=== PATIENT | male | born 1950 | race Caucasian/White ===

== ENCOUNTER 2021-04-08 12:16 | Inpatient (IN) | payer MEDICARE, MEDICAID ==
[~2021-04-08] VITALS: Ht 167.6 cm; Wt 54.5 kg
[2021-04-08] MEDS ORDERED: ERGO500090 PO (14:14)
[2021-04-08] MEDS ORDERED: BACL20TA PO (14:14)
[2021-04-08] MEDS ORDERED: ASCO500C PO (14:14)
[2021-04-08] MEDS ORDERED: MIRT-8 PO (14:14)
[2021-04-08] MEDS ORDERED: NAPR220C62 PO (14:14)
[2021-04-08] MEDS ORDERED: ESCITALOPRAM OX20 MG PO (14:14)
[2021-04-08] MEDS ORDERED: METF500T16 PO (14:14)
[2021-04-08] MEDS ORDERED: [UNRECOGNIZED DRUG - CODE] PO (14:14)
[2021-04-08] MEDS ORDERED: BUPR150T8 PO (14:14)
[2021-04-08] MEDS ORDERED: GABA-586 PO (14:14)
[2021-04-08] MEDS ORDERED: ATOR10TA60 PO (14:14)
[2021-04-08] MEDS ORDERED: DOCU-109 PO (14:14)
[2021-04-08] MEDS ORDERED: TRAZ-125 PO (14:42)
[2021-04-08] MEDS ORDERED: RILU50TA2 PO (14:42)
[2021-04-08] MEDS ORDERED: TRAM50TA PO (14:42)
[2021-04-08] MEDS ORDERED: HYDR-2155 PO (14:42)
[2021-04-08] MEDS ORDERED: POLY2500 PO (14:42)
[2021-04-08] MEDS ORDERED: QUET300T5 PO (14:42)
[2021-04-08] MEDS ORDERED: MAGNESIUM HYDROXIDE 2,400 MG/30 ML ORAL.SUSP. PO PRN (17:45)
[2021-04-08] MEDS ORDERED: METHYL SALICYLATE/MENTHOL TOPICAL OINTMENT 57GM TUBE. TP PRN (17:45)
[2021-04-08] MEDS ORDERED: MAG HYDROX/AL HYDROX/SIMETH 30 ML ORAL.SUSP PO PRN (17:45)
--- NOTE | 2021-04-08 17:50 | NUR ---
Nsg Note; Admission Admission Note with Justification for Admission to [facility] Patient admitted to [facility] for protective oversight for emergency stabilization of acute psychiatric crisis. Pt admitted from: SNF Mode of arrival: Secure Transport Accompanied By: Secure Transport Precipitating behaviors that initiated intake and admission: suicidal statements sec recent diagnosis of ALS Description of failure of out patient attempts at stabilization in previous setting list behavior and medication trials: MD visit, med changes, MD order for inpatient admission Behaviors and assessment findings upon admission: calm, sarcastic, weak Plan: Admit for protective oversight for adjustment and stabilization of medications, behaviors and mood. Intense treatment regimen including groups, medication adjustments, therapy, consistent regimen for ADL's, self care, and sleep hygiene. Daily monitoring by Inpatient staff, Psychiatry, and Medical Physician.
[2021-04-08 18:05] VITALS: BP 114/71
--- NOTE | 2021-04-08 18:07 | NUR ---
Nsg Note; denies SI at this point pt states that he has been upset with his continued physical decline and recent diagnosis of ALS two months ago. He states that he made SI statements to the staff of his facility on 04/01, but by 04/02 he states he was no longer SI. He states that he did not agree to a two week admission here at [facility] but will stay at this point
[2021-04-08] MEDS: MIRTAZAPINE 30 MG TABLET PO SCH (19:45)
[2021-04-08] MEDS: ASCORBIC ACID 500 MG TABLET PO SCH (19:46)
[2021-04-08] MEDS: HYDROcodone/APAP 5/325MG 1 TAB TABLET PO PRN (19:46)
[2021-04-08] MEDS: GABAPENTIN 300 MG CAPSULE. PO SCH (19:46)
[2021-04-08] MEDS: buPROPion 75 MG TABLET PO SCH (19:47)
[2021-04-08] MEDS: BACLOFEN 20 MG TABLET PO SCH (19:47)
[2021-04-08] MEDS: traZODone 100 MG TABLET. PO SCH (19:47)
[2021-04-08] MEDS: ATORVASTATIN CALCIUM 10 MG TABLET. PO SCH (19:47)
[2021-04-08] MEDS: QUEtiapine 100 MG TABLET. PO SCH (19:48)
[2021-04-08] MEDS: RILUZOLE 50 MG PO SCH (19:48)
[2021-04-08] MEDS: ACETAMINOPHEN 500 MG TABLET PO SCH (19:48)
[2021-04-08 20:36] LABS: BACTERIA,URINE FEW /HPF (0-FEW); BILIRUBIN,URINE NEG (NEG); CLARITY,URINE CLEAR; COLOR,URINE YELLOW; GLUCOSE,URINE 100 mg/dL (NEG); NITRITE,URINE NEG (NEG); SQUAMOUS EPITHELIAL CELL,UR FEW /LPF
[2021-04-08] MEDS: traMADol 50 MG TABLET PO SCH ×2 (21:44→22:00)
--- NOTE | 2021-04-08 21:59 | PDOC ---
Exam Note: Bran Note: Please also refer to the separate dictated note~for this date of service dictated separately.~Patient seen individually. Discussed the patient with Nursing staff reviewed the chart.~Reviewed interim history and current functioning. Reviewed vital signs,~Labs/ Radiology~and current medications noted below. Continue current treatment with the changes noted in the dictated addendum note Assessment: Vital Signs/I&O: Vital Signs Date Time Temp Pulse Resp B/P (MAP) Pulse Ox O2 Delivery O2 Flow Rate FiO2 04/08/21 21:44 93 04/08/21 19:46 Room Air 04/08/21 18:05 98.9 94 18 114/71 (85) Labs: Laboratory Tests Test 04/08/21 20:06 Urine Collection Type Unknown Urine Color Yellow Urine Clarity Clear Urine pH 7.0 Urine Specific Dale 1.025 Urine Protein Neg (NEG-TRACE) Urine Glucose (UA) 100 mg/dL (NEG) Urine Ketones (Stick) Neg mg/dL (NEG) Urine Blood Neg (NEG) Urine Nitrite Neg (NEG) Urine Bilirubin Neg (NEG) Urine Urobilinogen Dipstick 2.0 mg/dL (0.2 mg/dL) Urine Leukocyte Esterase Neg (NEG) Urine RBC 1-2 /HPF (0-2) Urine WBC 1-4 /HPF (0-4) Urine Squamous Epithelial Cells Few /LPF Urine Bacteria Few /HPF (0-FEW) Current Medications: Meds: Current Medications Medications (Trade) Dose Ordered Sig/Yakelin Route PRN Reason Start Time Stop Time Status Last Admin Dose Admin Atorvastatin Calcium (Lipitor) 10 mg QHS PO 04/08/21 21:00 04/08/21 19:47 Baclofen (Lioresal) 20 mg TID PO 04/08/21 21:00 04/08/21 19:47 Bupropion HCl (Wellbutrin) 75 mg BID PO 04/08/21 21:00 04/08/21 19:47 Gabapentin (Neurontin) 300 mg TID PO 04/08/21 21:00 04/08/21 19:46 Acetaminophen/ Hydrocodone Bitart (Lortab 5/325) 1 tab PRN Q6HRS PRN PO PAIN 04/08/21 17:45 04/08/21 19:46 Mirtazapine (Remeron) 30 mg QHS PO 04/08/21 21:00 04/08/21 19:45 Tramadol HCl (Ultram) 50 mg Q8HRS PO 04/08/21 22:00 04/08/21 21:44 Trazodone HCl (Desyrel) 100 mg QHS PO 04/08/21 21:00 04/08/21 19:47 Ascorbic Acid (Vitamin C) 1,000 mg TID PO 04/08/21 21:00 04/08/21 19:46 Quetiapine Fumarate (SEROquel) 300 mg QHS PO 04/08/21 21:00 04/08/21 19:48 Acetaminophen (Tylenol) 1,000 mg BID PO 04/08/21 21:00 04/08/21 19:48 I have reviewed the current psychotropics carefully including drug interactions. Risk benefit ratio favors no change other than as noted in my dictated progress note. Diagnosis: Problems: (1) MDD (major depressive disorder) DIMITRI GODINEZ MD Apr 08, 2021 21:59
--- NOTE | 2021-04-08 23:59 | NUR ---
Patient is in his room on assumption of care, awake in bed. Alert and oriented x 4. Needy, demanding, can be sarcastic in his answers. Patient requested PRN Lortab with his HS meds, with good effect. When approached with his 2200 dose of Tramadol, patient stated "I'm gonna skip it." Denies any SI thoughts at present time. No agitation. Patient appears to be sleeping comfortably at present time. Will continue to monitor.
[2021-04-09] MEDS: traMADol 50 MG TABLET PO SCH ×2 (05:34→13:01)
[2021-04-09 06:17] VITALS: BP 125/67
[2021-04-09] MEDS ORDERED: BETA CAROTENE 25000 UNIT PO SCH (09:00)
[2021-04-09] MEDS ORDERED: FLU VACC QUAD 21-22 (6MOS+) PF 0.5 ML SYRINGE. VAX IM ONE (09:00)
[2021-04-09] MEDS ORDERED: CITALOPRAM 20 MG TABLET. PO SCH (09:00)
[2021-04-09] MEDS: RILUZOLE 50 MG PO SCH ×2 (09:00→20:04)
--- NOTE | 2021-04-09 09:31 | NUR ---
Patient has been provided with Practical Counseling for tobacco cessation. It included a face to face interaction and the following was discussed: Recognizing danger situations, Developing coping skills,Basic cessation information. Will follow for discharge needs and discharge planning.
[2021-04-09] MEDS: buPROPion 75 MG TABLET PO SCH (09:39)
[2021-04-09] MEDS: ASCORBIC ACID 500 MG TABLET PO SCH ×3 (09:39→20:05)
[2021-04-09] MEDS: POLYETHYLENE GLYCOL 3350 17 GM PACKET. PO SCH (09:39)
[2021-04-09] MEDS: ACETAMINOPHEN 500 MG TABLET PO SCH ×2 (09:40→18:38)
[2021-04-09] MEDS: BACLOFEN 20 MG TABLET PO SCH ×3 (09:40→20:03)
[2021-04-09] MEDS: metFORMIN 500 MG TABLET PO SCH ×2 (09:40→17:00)
[2021-04-09] MEDS: GABAPENTIN 300 MG CAPSULE. PO SCH ×3 (09:40→20:03)
[2021-04-09] MEDS: DOCUSATE SODIUM 100 MG CAPSULE PO SCH (09:40)
[2021-04-09] MEDS ORDERED: ESCITALOPRAM OX20 MG PO (12:00)
[2021-04-09 12:12] LABS: BASO # 0.1 x10^3/uL (0.0-0.2); BASO % 1 % (0-3); EOS # 0.3 x10^3/uL (0.0-0.7); EOS % 3 % (0-3); HEMATOCRIT 26.7 % (39.0-53.0); HEMOGLOBIN 8.3 g/dL (13.0-17.5); LYMPH # 2.6 x10^3/uL (1.0-4.8); LYMPH % 29 % (24-48); MEAN CORPUSCULAR HEMOGLOBIN 26 pg (25-35); MEAN CORPUSCULAR HGB CONC 31 g/dL (31-37); MEAN CORPUSCULAR VOLUME 84 fL (79-100); MONO # 0.6 x10^3/uL (0.0-1.1); MONO % 7 % (0-9); NEUT # 5.2 x10^3uL (1.8-7.7); NEUT % 59 % (31-73); PLATELET COUNT 262 x10^3/uL (140-400); RED BLOOD COUNT 3.18 x10^6/uL (4.30-5.70); RED CELL DISTRIBUTION WIDTH 19.1 % (11.5-14.5); WHITE BLOOD COUNT 8.9 x10^3/uL (4.0-11.0)
[2021-04-09 12:32] LABS: ALBUMIN 3.4 g/dL (3.4-5.0); ALBUMIN/GLOBULIN RATIO 0.9 (1.0-1.7); CALCIUM 8.8 mg/dL (8.5-10.1); CREATININE 0.7 mg/dL (0.7-1.3); GFR 111.5; MAGNESIUM 2.3 mg/dL (1.8-2.4); TOTAL BILIRUBIN 0.2 mg/dL (0.2-1.0)
[2021-04-09] MEDS: HYDROcodone/APAP 5/325MG 1 TAB TABLET PO PRN (13:18)
[2021-04-09 15:41] VITALS: BP 94/60
[2021-04-09] MEDS: HYDROcodone/APAP 5/325MG 1 TAB TABLET PO SCH ×2 (15:45→20:05)
--- NOTE | 2021-04-09 17:20 | NUR ---
Pt up for lunch and supper. C/O generalized pain not controlled with tramadol. New orders received. Air mattress ordered per pt request. Pt sleeps on one at [place] and states it helps with pain. Pt states he has not verbalized any suicidal ideations since before the hospitalization and feels he is ready to go home. Has been compliant with meds and cares.
[2021-04-09] MEDS ORDERED: NICOTINE 14MG PATCH. TD PRN (17:30)
[2021-04-09] MEDS: QUEtiapine 100 MG TABLET. PO SCH (20:03)
[2021-04-09] MEDS: ATORVASTATIN CALCIUM 10 MG TABLET. PO SCH (20:03)
[2021-04-09] MEDS: traZODone 100 MG TABLET. PO SCH (20:03)
[2021-04-09] MEDS: MIRTAZAPINE 30 MG TABLET PO SCH (20:04)
--- NOTE | 2021-04-09 20:39 | CONS ---
DATE OF CONSULTATION: 04/09/2021 REASON FOR CONSULTATION: Medical management. HISTORY OF PRESENT ILLNESS: The patient is a 70-year-old male patient, a resident at [facility] on [address] in [place], who was [facility] on account of suicidal ideation, upset about the new diagnosis of amyotrophic lateral sclerosis with declining ability, all this in a background with major depressive disorder with suicidal ideation. PAST MEDICAL HISTORY: Significant for type 2 diabetes mellitus, hypertension, hyperlipidemia, spinal stenosis, chronic low back pain. PAST SURGICAL HISTORY: Significant for tonsillectomy. ALLERGIES: ALLERGIC TO HALOPERIDOL. MEDICATIONS: He is currently on following medications: He is on vitamin D 50,000 units once a month, citalopram 40 mg once a day, polyethylene glycol 17 grams daily, citalopram hydrobromide, Colace 100 mg once a day, metformin 500 mg twice a day, tramadol 50 mg every 8 hours, acetaminophen 1000 mg twice a day, riluzole 50 mg twice a day, quetiapine fumarate for Seroquel 300 mg at bedtime, ascorbic acid 1000 mg 3 times a day, trazodone 100 mg at bedtime, mirtazapine 30 mg at bedtime, gabapentin 300 mg 3 times a day, Wellbutrin 75 mg twice a day, baclofen 20 mg 3 times a day, atorvastatin, calcium 10 mg at bedtime. He is on milk of magnesia 30 mL p.o. daily p.r.n. for constipation, Mylanta 15 mL after meals and as needed, hydrocodone/APAP 5/325 one tablet every 6 hours. FAMILY HISTORY: Noncontributory. SOCIAL HISTORY: He is a resident at [facility]. He has 1 son. He used to be a smoker. In fact, he continued to smoke about 6 cigarettes a day, does not drink any alcohol. PHYSICAL EXAMINATION: GENERAL: When I examined him this afternoon, he was resting, slightly propped up in bed, in no apparent respiratory distress. No pallor, jaundiced, cyanosed. No thyromegaly. No jugular venous distention. No lower limb edema. VITAL SIGNS: Her heart rate was 89, blood pressure is 125/67, his respiratory rate was 18, temperature was 98.9, and oxygen saturation was 92% on room air. HEAD, EYES, EARS, NOSE, AND THROAT: Normocephalic, atraumatic. NECK: Supple. HEART: Showed normal first and second heart sounds. No gallop, rub, or murmur. CHEST: Clear to auscultation. No crepitation or rhonchi. ABDOMEN: Distended, soft, nontender. NEUROLOGIC: He is awake, alert, responding appropriately. All cranial nerves intact. The patient has functional quadriplegia. Has fixed flexion contraction of his both upper extremities. He is incontinent of both bladder and bowel. He requires assistance in all activities of daily living. SKIN: So far, there is no evidence of any skin breakdown. LABORATORY DATA: Showed a white cell count of 8900, hemoglobin 8, hematocrit 27, MCV 84, and platelet count of 262,000 with normal manual differential. His chemistry showed a serum sodium 138, potassium 4, chloride 104, bicarbonate 27, anion gap of 7, BUN 26, creatinine was 0.7. Estimated GFR was 111. Glucose 133, calcium was 8.8, magnesium was 2.3. Total bilirubin, AST, ALT, alkaline phosphatase were normal. Total protein was 7, albumin was 3.4. His D-dimer was 0.58 and urinalysis essentially unremarkable. ASSESSMENT AND PLAN: In summary, this is a 70-year-old male patient, a resident at [facility] in [place], who was admitted on account of having suicidal ideation as he is upset with new diagnosis of amyotrophic lateral sclerosis with declining ability, all this in a background of major depressive disorder with suicidal ideation. The patient has multiple medical problems including hypertension, hyperlipidemia, type 2 diabetes mellitus. Also has chronic low back pain and spinal stenosis and the patient is effectively total care as he requires assistance with all activities of daily living. Otherwise, he is medically stable, although he does have normochromic normocytic anemia. We will obviously follow all his lab work and recommend any change in medication if deemed necessary. Thank you, Dr. Ramirez, for allowing me to participate in the care of this patient. CARRINGTON TURNER: Zainab TID: [id number]
[2021-04-09] MEDS ORDERED: RILUZOLE 50 MG ONE (21:00)
--- NOTE | 2021-04-10 00:18 | NUR ---
Patient is in the hallway on assumption of care, sitting in his wheelchair. Alert and oriented x 4. Needy, demanding, irritable, can be sarcastic in his answers. He expects immediate attention to his needs, does not accept explanations about reasons why he may have to wait sometimes. Denies any SI thoughts at present time. No agitation. Patient appears to be sleeping comfortably at present time. Will continue to monitor.
[2021-04-10] MEDS: HYDROcodone/APAP 5/325MG 1 TAB TABLET PO SCH ×3 (05:09→20:06)
[2021-04-10 05:47] LABS: THYROXINE 6.5 ug/dL (4.5-12.0)
[2021-04-10 06:37] VITALS: BP 155/77
[2021-04-10 07:17] LABS: HEMOGLOBIN A1C 5.1 % (4.8-5.6)
[2021-04-10] MEDS: RILUZOLE 50 MG PO SCH ×2 (09:00→21:00)
[2021-04-10] MEDS ORDERED: CITALOPRAM 20 MG TABLET. PO SCH (09:00)
[2021-04-10] MEDS ORDERED: RILUZOLE 50 MG ONE (09:00)
[2021-04-10] MEDS: POLYETHYLENE GLYCOL 3350 17 GM PACKET. PO SCH (09:49)
[2021-04-10] MEDS: ACETAMINOPHEN 500 MG TABLET PO SCH ×2 (09:49→20:05)
[2021-04-10] MEDS: buPROPion 75 MG TABLET PO SCH ×2 (09:49→12:23)
[2021-04-10] MEDS: DOCUSATE SODIUM 100 MG CAPSULE PO SCH (09:50)
[2021-04-10] MEDS: GABAPENTIN 300 MG CAPSULE. PO SCH ×3 (09:50→20:04)
[2021-04-10] MEDS: BACLOFEN 20 MG TABLET PO SCH ×3 (09:50→20:05)
[2021-04-10] MEDS: metFORMIN 500 MG TABLET PO SCH ×2 (09:50→17:59)
[2021-04-10] MEDS: ASCORBIC ACID 500 MG TABLET PO SCH ×3 (09:50→20:05)
[2021-04-10 10:53] LABS: THYROID STIM HORMONE (TSH) 2.003 uIU/mL (0.358-3.740)
--- NOTE | 2021-04-10 18:06 | NUR ---
Nursing note: Patient is in room for morning medication & assessment. He is compliant with medications taken whole. He is alert and oriented x 4, frequently needy, demanding, as well as some sarcasm when he answers. He stayed in bed through the day. He denies any SI/pain/discomfort at this time. Patient requires lift assist and feeding assisstance. He is currently sitting in bed awake. Will continue to monitor.
[2021-04-10] MEDS: QUEtiapine 100 MG TABLET. PO SCH (20:02)
[2021-04-10] MEDS: ATORVASTATIN CALCIUM 10 MG TABLET. PO SCH (20:02)
[2021-04-10] MEDS: traZODone 100 MG TABLET. PO SCH (20:04)
[2021-04-10] MEDS: MIRTAZAPINE 30 MG TABLET PO SCH (20:04)
--- NOTE | 2021-04-10 20:43 | PDOC ---
Exam Note: Bran Note: Please also refer to the separate dictated note~for this date of service dictated separately.~Patient seen individually. Discussed the patient with Nursing staff reviewed the chart.~Reviewed interim history and current functioning. Reviewed vital signs,~Labs/ Radiology~and current medications noted below. Continue current treatment with the changes noted in the dictated addendum note Assessment: Vital Signs/I&O: Vital Signs Date Time Temp Pulse Resp B/P (MAP) Pulse Ox O2 Delivery O2 Flow Rate FiO2 04/10/21 20:06 95 04/10/21 06:37 97.4 92 18 155/77 (103) 04/09/21 06:17 Room Air I & O 04/09/21 04/09/21 04/10/21 15:00 23:00 07:00 Intake Total 200 ml 800 ml Balance 200 ml 800 ml Labs: Laboratory Tests Test 04/10/21 07:20 Glucose (Fingerstick) 82 mg/dL (70-99) Current Medications: Meds: Current Medications Medications (Trade) Dose Ordered Sig/Yakelin Route PRN Reason Start Time Stop Time Status Last Admin Dose Admin Bupropion HCl (Wellbutrin) 150 mg DAILY PO 04/10/21 09:00 04/10/21 09:49 Bupropion HCl (Wellbutrin) 75 mg 1200 PO 04/10/21 12:00 04/10/21 12:23 I have reviewed the current psychotropics carefully including drug interactions. Risk benefit ratio favors no change other than as noted in my dictated progress note. Diagnosis: Problems: (1) MDD (major depressive disorder) DIMITRI GODINEZ MD Apr 10, 2021 20:43
--- NOTE | 2021-04-10 21:32 | HP ---
DATE OF SERVICE: 04/10/2021 ADMIT DATE: 04/08/2021 PSYCHIATRIC ADMISSION HISTORY/EVALUATION This is a late entry for date of service 04/08, covers elements not covered in my initial note of 04/08. I met with the patient on the evening of 04/08 shortly after he arrived on the unit. IDENTIFYING DATA: The patient is a 70-year-old male referred to us from [facility] referred by his primary care physician/psychiatrist on account of worsening symptoms of depression with suicidal ideation consequent to his diagnosis of ALS with declining ability. The patient has failed outpatient psychiatric interventions. Behavior is deemed dangerous, unmanageable due to his suicidal ideation and referred for inpatient psychiatric stabilization from his nursing facility. CHIEF COMPLAINT: "I don't feel suicidal anymore." HISTORY OF PRESENT ILLNESS: Reportedly, the patient has a long history of bipolar disorder, but recently has appeared more depressed, feeling hopeless, helpless, worthless, apathy, poor motivation withdrawal and suicidal ideation as noted above. He has had some sleep and appetite changes. No active homicidal ideation or clear psychotic symptoms. He had not specified a suicide plan. No attempts noted and he states his intent was in the past. He does admit to history of mood swings, but we will have to obtain past psychiatric records for clarification of bipolar diagnosis. PAST PSYCHIATRIC HISTORY: As above. PAST MEDICAL HISTORY: ALS, type 2 diabetes mellitus, spinal stenosis, hyperlipidemia, hypertension. The ALS diagnosis was made 2 months ago. Accu-Cheks daily. CODE STATUS: Full code. ALLERGIES: HALDOL. DIET: Regular. Takes medications whole, ambulates in wheelchair. CURRENT PSYCHOTROPICS: Bupropion 75 mg b.i.d., Neurontin 300 mg t.i.d., Lexapro 20 mg a day, Remeron 30 mg at bedtime. FAMILY HISTORY: Noncontributory. 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 PAST SUBSTANCE ABUSE HISTORY: Will be clarified as the hospitalization progresses. No physical, sexual or elder abuse history is noted. He is not known to be a perpetrator. REACTION TO HOSPITALIZATION: The patient accepting of it. REVIEW OF SYSTEMS: Ambulation impaired. No CV, , pulmonary, eye system symptoms on review. MENTAL STATUS EXAM: The patient is reasonably oriented. Speech has some latency, coherent. Abstraction fair. Computation impaired. Language function intact. Attention span short. Mood and affect withdrawn, depressed, but denies suicidal ideation. LABORATORY DATA: Reviewed. IMPRESSION: Major depressive disorder. Anxiety disorder, unspecified. Bipolar disorder, depressed. Amyotrophic lateral sclerosis. Rest diagnoses as above. PLAN: Admit to geropsychiatry unit at [facility]. I will see the patient daily individually from a psychiatric standpoint, medical followup with Dr. Sy/Dr. Rivera. We will increase his Wellbutrin from 75 mg a.m. and noon to 150 mg a.m., 75 mg noon for 2 days, then 150 mg twice a day after that. Maintain rest of the psychotropics unchanged to obtain past psychiatric records to corroborate bipolar diagnosis and if this is confirmed, may consider Lamictal as a mood stabilizer unless manic episodes have been a significant issue in the past. ESTIMATED LENGTH OF STAY: 10-12 days. DISPOSITION: Back to prison when stable. ANDRADE DR: Da TID: [id number]
--- NOTE | 2021-04-10 23:42 | NUR ---
Patient is in his room on assumption of care, awake in bed. Alert and oriented x 4. Needy, demanding, can be sarcastic in his answers. Denies any SI thoughts at present time. No agitation. Patient appears to be sleeping comfortably at present time. Will continue to monitor
[2021-04-11] MEDS: HYDROcodone/APAP 5/325MG 1 TAB TABLET PO SCH ×3 (05:26→20:16)
[2021-04-11 06:13] VITALS: BP 116/70
[2021-04-11] MEDS: metFORMIN 500 MG TABLET PO SCH ×2 (09:00→17:27)
[2021-04-11] MEDS ORDERED: RILUZOLE 50 MG ONE (09:00)
[2021-04-11] MEDS: GABAPENTIN 300 MG CAPSULE. PO SCH ×3 (09:14→20:16)
[2021-04-11] MEDS: DOCUSATE SODIUM 100 MG CAPSULE PO SCH (09:14)
[2021-04-11] MEDS: POLYETHYLENE GLYCOL 3350 17 GM PACKET. PO SCH (09:14)
[2021-04-11] MEDS: BACLOFEN 20 MG TABLET PO SCH ×3 (09:14→20:16)
[2021-04-11] MEDS: RILUZOLE 50 MG PO SCH ×2 (09:15→20:17)
[2021-04-11] MEDS: ASCORBIC ACID 500 MG TABLET PO SCH ×3 (09:15→20:16)
[2021-04-11] MEDS: buPROPion 75 MG TABLET PO SCH ×2 (09:15→12:44)
[2021-04-11] MEDS: ACETAMINOPHEN 500 MG TABLET PO SCH ×2 (09:15→20:17)
--- NOTE | 2021-04-11 13:04 | NUR ---
WEEKLY ACTIVITY THERAPY NOTE Date of Admission:04/08/21 Date of AT Assessment: TBD Precipitating behaviors that initiated intake and admission:suicidal statements sec recent diagnosis of ALS Goal aimed: TBD Initial Goal: TBD Weekly progress towards goal: NA Group participation level: NA Weekly highlights: arrived on [facility] Behaviors observed: Plan: meet/assess pt Beneficial adaptations:TBD
--- NOTE | 2021-04-11 14:10 | NUR ---
ACTIVITY THERAPY ASSESSMENT completed based on notes, observation and interview. Pt was laying in bed listening to music on the placido. Pt mentioned that he was a little depressed and experienced a few suicidal thoughts a couple weeks back. Pt said he was not experiencing that at this time and that being here was a waste of time. ACCOUNTS MANAGER explained the activities offered on [facility] and asked pt what he enjoys doing. Pt said that he enjoys bingo, playing the piano and trumpet. Pt said he is very limited as to what he can do because of his ALS diagnosis. Pt was able to answer orientation questions accurately and said he does not have any memory impairments. Pt talked about his family briefly but them became a bit demanding with ACCOUNTS MANAGER. Pt requested socks for his feet and instructed ACCOUNTS MANAGER to touch his feet because they would feel cold. ACCOUNTS MANAGER said that she would get some socks for him. Pt was reporting some pain in his heel which was reported to his nurse. Pt also requested that ACCOUNTS MANAGER adjust the pillow underneath his feet. Per notes pt can be demanding and sarcastic with staff. Initial goal aimed to increase socialization and motivation. Pt will participate in at least three Activity Therapy sessions before discharge.
--- NOTE | 2021-04-11 15:06 | NUR ---
Nursing note: Patient is in his room for morning medication & assessment. He is compliant with medications taken whole. He is alert and oriented x 4, frequently needy, demanding, as well as some sarcasm when he answers. He stayed in bed or broda chair (that was delivered today) through the day. He denies any SI at this time. Patient requires lift assist and feeding assistance. He is currently laying in bed with eyes closed. Will continue to monitor.
[2021-04-11 15:47] VITALS: BP 123/68
[2021-04-11] MEDS: MIRTAZAPINE 30 MG TABLET PO SCH (20:16)
[2021-04-11] MEDS: traZODone 100 MG TABLET. PO SCH (20:16)
[2021-04-11] MEDS: QUEtiapine 100 MG TABLET. PO SCH (20:16)
[2021-04-11] MEDS: ATORVASTATIN CALCIUM 10 MG TABLET. PO SCH (20:17)
--- NOTE | 2021-04-11 21:01 | PDOC ---
Exam Note: Bran Note: This note is a late entry for 04/09/2021 covers elements not covered in my initial note. Subjective: The patient was seen individually in the evening of 04/09/2021 with Jing MERCADO, discussed and reviewed the chart. The patient slept 7-1/2 hours previous night. Overall the patient is withdrawn, depressed but denies suicidal ideation. He does complain of pain consequent to his ALS. Review of Systems: Ambulation impaired. No CV, , pulmonary, eye, ENT system symptoms on review. Mental Status Exam: The patient is reasonably oriented. Speech coherent. Abst raction fair. Computation impaired. Language function intact. Mood and affect depressed. No active suicidal ideation. Laboratory Data: Reviewed. Impression: Major depressive disorder with history of suicidal ideation. Rule out bipolar disorder depressed. Anxiety disorder unspecified. Plan: Continue current psychotropics. Increase Wellbutrin from 75 mg b.i.d. to 150 mg a.m. and 75 mg noon. Stop the Lexapro since he has been started on Wellbutrin. Adjust further as clinically indicated. Continue Seroquel 300 mg h.s., trazodone 100 mg h.s., Neurontin 300 mg 3 times a day, Remeron 30 mg h.s. Assessment: Vital Signs/I&O: Vital Signs Date Time Temp Pulse Resp B/P (MAP) Pulse Ox O2 Delivery O2 Flow Rate FiO2 04/11/21 20:16 93 04/11/21 15:47 98.9 88 16 123/68 (86) 04/11/21 06:13 Room Air I & O 04/10/21 04/10/21 04/11/21 15:00 23:00 07:00 Intake Total 600 ml 600 ml Balance 600 ml 600 ml Labs: Laboratory Tests Test 04/11/21 07:20 Glucose (Fingerstick) 81 mg/dL (70-99) Current Medications: Meds: Laboratory Tests Test 04/11/21 07:20 Glucose (Fingerstick) 81 mg/dL Current Medications Medications (Trade) Dose Ordered Sig/Yakelin Route PRN Reason Start Time Stop Time Status Last Admin Dose Admin Atorvastatin Calcium (Lipitor) 10 mg QHS PO 04/08/21 21:00 04/11/21 20:17 Baclofen (Lioresal) 20 mg TID PO 04/08/21 21:00 04/11/21 20:16 Bupropion HCl (Wellbutrin) 75 mg BID PO 04/08/21 21:00 04/09/21 18:10 DC 04/09/21 09:39 Docusate Sodium (Colace) 100 mg DAILY PO 04/09/21 09:00 04/11/21 09:14 Gabapentin (Neurontin) 300 mg TID PO 04/08/21 21:00 04/11/21 20:16 Acetaminophen/ Hydrocodone Bitart (Lortab 5/325) 1 tab PRN Q6HRS PRN PO PAIN 04/08/21 17:45 04/09/21 15:40 DC 04/09/21 13:18 Metformin HCl (Glucophage) 500 mg BIDWMEALS PO 04/09/21 08:00 04/11/21 17:27 Mirtazapine (Remeron) 30 mg QHS PO 04/08/21 21:00 04/11/21 20:16 Tramadol HCl (Ultram) 50 mg Q8HRS PO 04/08/21 22:00 04/09/21 15:40 DC 04/09/21 13:01 Trazodone HCl (Desyrel) 100 mg QHS PO 04/08/21 21:00 04/11/21 20:16 Ascorbic Acid (Vitamin C) 1,000 mg TID PO 04/08/21 21:00 04/11/21 20:16 Non-Formulary Medication (Beta-Carotene (Beta Carotene)) 25,000 unit DAILY PO 04/09/21 09:00 UNV Vitamin D (Vitamin D3) 50,000 unit QM@0900 PO 04/18/21 09:00 Citalopram Hydrobromide (CeleXA) 40 mg DAILY PO 04/09/21 09:00 04/09/21 18:40 DC 04/09/21 09:40 Polyethylene Glycol (miraLAX) 17 gm DAILY PO 04/09/21 09:00 04/11/21 09:14 Quetiapine Fumarate (SEROquel) 300 mg QHS PO 04/08/21 21:00 04/11/21 20:16 Non-Formulary Medication (Riluzole ) 50 mg BID PO 04/08/21 21:00 04/11/21 10:42 DC 04/11/21 09:15 Multi-Ingredient Ointment (Analgesic Walnut) 1 komal PRN QID PRN TP MUSCLE PAIN 04/08/21 17:45 Al Hydroxide/Mg Hydroxide (Mylanta Plus Xs) 15 ml PRN AFTMEALHC PRN PO DYSPEPSIA 04/08/21 17:45 Magnesium Hydroxide (Milk Of Magnesia) 2,400 mg PRN QHS PRN PO CONSTIPATION 04/08/21 17:45 Acetaminophen (Tylenol) 1,000 mg BID PO 04/08/21 21:00 04/11/21 20:17 Influenza Virus Vaccine Quadrival (Flulaval Quad [id number] Syringe) 0.5 ml ONCE ONCE VAX IM 04/09/21 09:00 04/09/21 09:01 DC 04/09/21 09:43 Citalopram Hydrobromide (CeleXA) 40 mg DAILY PO 04/10/21 09:00 04/09/21 18:40 DC Acetaminophen/ Hydrocodone Bitart (Lortab 5/325) 1 tab Q8HRS PO 04/09/21 15:45 04/11/21 20:16 Nicotine (Nicoderm Cq 14mg Patch) 1 patch PRN DAILY PRN TD SMOKING CESSATION 04/09/21 17:30 Bupropion HCl (Wellbutrin) 150 mg DAILY PO 04/10/21 09:00 04/11/21 09:15 Bupropion HCl (Wellbutrin) 75 mg 1200 PO 04/10/21 12:00 04/11/21 12:44 Riluzole (Riluzole) 50 mg BID@1000,2200 PO 04/11/21 22:00 04/11/21 20:17 Riluzole (Riluzole) 50 mg STK-MED ONCE .ROUTE 04/09/21 21:00 04/11/21 10:42 DC Riluzole (Riluzole) 50 mg STK-MED ONCE .ROUTE 04/10/21 09:00 04/11/21 10:42 DC Riluzole (Riluzole) 50 mg STK-MED ONCE .ROUTE 04/11/21 09:00 04/11/21 10:42 DC Current Medications Medications (Trade) Dose Ordered Sig/Yakelin Route PRN Reason Start Time Stop Time Status Last Admin Dose Admin Riluzole (Riluzole) 50 mg BID@1000,2200 PO 04/11/21 22:00 04/11/21 20:17 I have reviewed the current psychotropics carefully including drug interactions. Risk benefit ratio favors no change other than as noted in my dictated progress note. Diagnosis: Problems: (1) Suicidal ideations (2) MDD (major depressive disorder) (3) Amyotrophic lateral sclerosis (4) Anxiety disorder, unspecified (5) Bipolar 1 disorder, depressed DIMITRI GODINEZ MD Apr 11, 2021 21:01
--- NOTE | 2021-04-11 21:21 | PDOC ---
Exam Note: Bran Note: Please also refer to the separate dictated note~for this date of service dictated separately.~Patient seen individually. Discussed the patient with Nursing staff reviewed the chart.~Reviewed interim history and current functioning. Reviewed vital signs,~Labs/ Radiology~and current medications noted below. Continue current treatment with the changes noted in the dictated addendum note Assessment: Vital Signs/I&O: Vital Signs Date Time Temp Pulse Resp B/P (MAP) Pulse Ox O2 Delivery O2 Flow Rate FiO2 04/11/21 20:16 93 04/11/21 15:47 98.9 88 16 123/68 (86) 04/11/21 06:13 Room Air I & O 04/10/21 04/10/21 04/11/21 15:00 23:00 07:00 Intake Total 600 ml 600 ml Balance 600 ml 600 ml Labs: Laboratory Tests Test 04/11/21 07:20 Glucose (Fingerstick) 81 mg/dL (70-99) Current Medications: Meds: Laboratory Tests Test 04/11/21 07:20 Glucose (Fingerstick) 81 mg/dL Current Medications Medications (Trade) Dose Ordered Sig/Yakelin Route PRN Reason Start Time Stop Time Status Last Admin Dose Admin Atorvastatin Calcium (Lipitor) 10 mg QHS PO 04/08/21 21:00 04/11/21 20:17 Baclofen (Lioresal) 20 mg TID PO 04/08/21 21:00 04/11/21 20:16 Bupropion HCl (Wellbutrin) 75 mg BID PO 04/08/21 21:00 04/09/21 18:10 DC 04/09/21 09:39 Docusate Sodium (Colace) 100 mg DAILY PO 04/09/21 09:00 04/11/21 09:14 Gabapentin (Neurontin) 300 mg TID PO 04/08/21 21:00 04/11/21 20:16 Acetaminophen/ Hydrocodone Bitart (Lortab 5/325) 1 tab PRN Q6HRS PRN PO PAIN 04/08/21 17:45 04/09/21 15:40 DC 04/09/21 13:18 Metformin HCl (Glucophage) 500 mg BIDWMEALS PO 04/09/21 08:00 04/11/21 17:27 Mirtazapine (Remeron) 30 mg QHS PO 04/08/21 21:00 04/11/21 20:16 Tramadol HCl (Ultram) 50 mg Q8HRS PO 04/08/21 22:00 04/09/21 15:40 DC 04/09/21 13:01 Trazodone HCl (Desyrel) 100 mg QHS PO 04/08/21 21:00 04/11/21 20:16 Ascorbic Acid (Vitamin C) 1,000 mg TID PO 04/08/21 21:00 04/11/21 20:16 Non-Formulary Medication (Beta-Carotene (Beta Carotene)) 25,000 unit DAILY PO 04/09/21 09:00 UNV Vitamin D (Vitamin D3) 50,000 unit QM@0900 PO 04/18/21 09:00 Citalopram Hydrobromide (CeleXA) 40 mg DAILY PO 04/09/21 09:00 04/09/21 18:40 DC 04/09/21 09:40 Polyethylene Glycol (miraLAX) 17 gm DAILY PO 04/09/21 09:00 04/11/21 09:14 Quetiapine Fumarate (SEROquel) 300 mg QHS PO 04/08/21 21:00 04/11/21 20:16 Non-Formulary Medication (Riluzole ) 50 mg BID PO 04/08/21 21:00 04/11/21 10:42 DC 04/11/21 09:15 Multi-Ingredient Ointment (Analgesic [place]) 1 komal PRN QID PRN TP MUSCLE PAIN 04/08/21 17:45 Al Hydroxide/Mg Hydroxide (Mylanta Plus Xs) 15 ml PRN AFTMEALHC PRN PO DYSPEPSIA 04/08/21 17:45 Magnesium Hydroxide (Milk Of Magnesia) 2,400 mg PRN QHS PRN PO CONSTIPATION 04/08/21 17:45 Acetaminophen (Tylenol) 1,000 mg BID PO 04/08/21 21:00 04/11/21 20:17 Influenza Virus Vaccine Quadrival (Flulaval Quad [id number] Syringe) 0.5 ml ONCE ONCE VAX IM 04/09/21 09:00 04/09/21 09:01 DC 04/09/21 09:43 Citalopram Hydrobromide (CeleXA) 40 mg DAILY PO 04/10/21 09:00 04/09/21 18:40 DC Acetaminophen/ Hydrocodone Bitart (Lortab 5/325) 1 tab Q8HRS PO 04/09/21 15:45 04/11/21 20:16 Nicotine (Nicoderm Cq 14mg Patch) 1 patch PRN DAILY PRN TD SMOKING CESSATION 04/09/21 17:30 Bupropion HCl (Wellbutrin) 150 mg DAILY PO 04/10/21 09:00 04/11/21 09:15 Bupropion HCl (Wellbutrin) 75 mg 1200 PO 04/10/21 12:00 04/11/21 12:44 Riluzole (Riluzole) 50 mg BID@1000,2200 PO 04/11/21 22:00 04/11/21 20:17 Riluzole (Riluzole) 50 mg STK-MED ONCE .ROUTE 04/09/21 21:00 04/11/21 10:42 DC Riluzole (Riluzole) 50 mg STK-MED ONCE .ROUTE 04/10/21 09:00 04/11/21 10:42 DC Riluzole (Riluzole) 50 mg STK-MED ONCE .ROUTE 04/11/21 09:00 04/11/21 10:42 DC Current Medications Medications (Trade) Dose Ordered Sig/Yakelin Route PRN Reason Start Time Stop Time Status Last Admin Dose Admin Riluzole (Riluzole) 50 mg BID@1000,2200 PO 04/11/21 22:00 04/11/21 20:17 I have reviewed the current psychotropics carefully including drug interactions. Risk benefit ratio favors no change other than as noted in my dictated progress note. Diagnosis: Problems: (1) MDD (major depressive disorder) (2) Suicidal ideations (3) Amyotrophic lateral sclerosis (4) Anxiety disorder, unspecified DIMITRI GODINEZ MD Apr 11, 2021 21:21
--- NOTE | 2021-04-11 21:21 | PDOC ---
Exam Note: Bran Note: This note is a late entry for 04/10/2021 covers elements not covered in my initial note. Subjective: The patient was seen individually in the evening of 04/10/2021 with Nga MERCADO, discussed and reviewed the chart. The patient slept 7-3/4 hours previous night. Per nursing report, the patient has been demanding. He remains incontinent about bladder. He is on MiraLax to help with this. Review of Systems: Positive for bowel and bladder incontinence. No CV, pulmonary, eye, ENT system symptoms on review. Impaired ambulation due to his ALS. Reliability poor. Mental Status Exam: The patient is reasonably oriented. Speech is coherent, rapid at times, still depressed, anxious, irritable. No suicidal or homicidal ideation. He is quite distractible. Abstraction fair. Computation impaired. Language function intact. Attention span short. Mood and affect withdrawn. Laboratory Data: Reviewed. Impression: Major depressive disorder severe. Anxiety disorder unspecified. Plan: Continue current psychotropics. We will gradually adjust the gabapentin. Celexa has been stopped. Maintain Seroquel and trazodone. Assessment: Vital Signs/I&O: Vital Signs Date Time Temp Pulse Resp B/P (MAP) Pulse Ox O2 Delivery O2 Flow Rate FiO2 04/11/21 20:16 93 04/11/21 15:47 98.9 88 16 123/68 (86) 04/11/21 06:13 Room Air I & O 04/10/21 04/10/21 04/11/21 15:00 23:00 07:00 Intake Total 600 ml 600 ml Balance 600 ml 600 ml Labs: Laboratory Tests Test 04/11/21 07:20 Glucose (Fingerstick) 81 mg/dL (70-99) Current Medications: Meds: Laboratory Tests Test 04/11/21 07:20 Glucose (Fingerstick) 81 mg/dL Current Medications Medications (Trade) Dose Ordered Sig/Yakelin Route PRN Reason Start Time Stop Time Status Last Admin Dose Admin Atorvastatin Calcium (Lipitor) 10 mg QHS PO 04/08/21 21:00 04/11/21 20:17 Baclofen (Lioresal) 20 mg TID PO 04/08/21 21:00 04/11/21 20:16 Bupropion HCl (Wellbutrin) 75 mg BID PO 04/08/21 21:00 04/09/21 18:10 DC 04/09/21 09:39 Docusate Sodium (Colace) 100 mg DAILY PO 04/09/21 09:00 04/11/21 09:14 Gabapentin (Neurontin) 300 mg TID PO 04/08/21 21:00 04/11/21 20:16 Acetaminophen/ Hydrocodone Bitart (Lortab 5/325) 1 tab PRN Q6HRS PRN PO PAIN 04/08/21 17:45 04/09/21 15:40 DC 04/09/21 13:18 Metformin HCl (Glucophage) 500 mg BIDWMEALS PO 04/09/21 08:00 04/11/21 17:27 Mirtazapine (Remeron) 30 mg QHS PO 04/08/21 21:00 04/11/21 20:16 Tramadol HCl (Ultram) 50 mg Q8HRS PO 04/08/21 22:00 04/09/21 15:40 DC 04/09/21 13:01 Trazodone HCl (Desyrel) 100 mg QHS PO 04/08/21 21:00 04/11/21 20:16 Ascorbic Acid (Vitamin C) 1,000 mg TID PO 04/08/21 21:00 04/11/21 20:16 Non-Formulary Medication (Beta-Carotene (Beta Carotene)) 25,000 unit DAILY PO 04/09/21 09:00 UNV Vitamin D (Vitamin D3) 50,000 unit QM@0900 PO 04/18/21 09:00 Citalopram Hydrobromide (CeleXA) 40 mg DAILY PO 04/09/21 09:00 04/09/21 18:40 DC 04/09/21 09:40 Polyethylene Glycol (miraLAX) 17 gm DAILY PO 04/09/21 09:00 04/11/21 09:14 Quetiapine Fumarate (SEROquel) 300 mg QHS PO 04/08/21 21:00 04/11/21 20:16 Non-Formulary Medication (Riluzole ) 50 mg BID PO 04/08/21 21:00 04/11/21 10:42 DC 04/11/21 09:15 Multi-Ingredient Ointment (Analgesic [place]) 1 komal PRN QID PRN TP MUSCLE PAIN 04/08/21 17:45 Al Hydroxide/Mg Hydroxide (Mylanta Plus Xs) 15 ml PRN AFTMEALHC PRN PO DYSPEPSIA 04/08/21 17:45 Magnesium Hydroxide (Milk Of Magnesia) 2,400 mg PRN QHS PRN PO CONSTIPATION 04/08/21 17:45 Acetaminophen (Tylenol) 1,000 mg BID PO 04/08/21 21:00 04/11/21 20:17 Influenza Virus Vaccine Quadrival (Flulaval Quad [id number] Syringe) 0.5 ml ONCE ONCE VAX IM 04/09/21 09:00 04/09/21 09:01 DC 04/09/21 09:43 Citalopram Hydrobromide (CeleXA) 40 mg DAILY PO 04/10/21 09:00 04/09/21 18:40 DC Acetaminophen/ Hydrocodone Bitart (Lortab 5/325) 1 tab Q8HRS PO 04/09/21 15:45 04/11/21 20:16 Nicotine (Nicoderm Cq 14mg Patch) 1 patch PRN DAILY PRN TD SMOKING CESSATION 04/09/21 17:30 Bupropion HCl (Wellbutrin) 150 mg DAILY PO 04/10/21 09:00 04/11/21 09:15 Bupropion HCl (Wellbutrin) 75 mg 1200 PO 04/10/21 12:00 04/11/21 12:44 Riluzole (Riluzole) 50 mg BID@1000,2200 PO 04/11/21 22:00 04/11/21 20:17 Riluzole (Riluzole) 50 mg STK-MED ONCE .ROUTE 04/09/21 21:00 04/11/21 10:42 DC Riluzole (Riluzole) 50 mg STK-MED ONCE .ROUTE 04/10/21 09:00 04/11/21 10:42 DC Riluzole (Riluzole) 50 mg STK-MED ONCE .ROUTE 04/11/21 09:00 04/11/21 10:42 DC Current Medications Medications (Trade) Dose Ordered Sig/Yakelin Route PRN Reason Start Time Stop Time Status Last Admin Dose Admin Riluzole (Riluzole) 50 mg BID@1000,2200 PO 04/11/21 22:00 04/11/21 20:17 I have reviewed the current psychotropics carefully including drug interactions. Risk benefit ratio favors no change other than as noted in my dictated progress note. Diagnosis: Problems: (1) MDD (major depressive disorder) (2) Suicidal ideations (3) Amyotrophic lateral sclerosis (4) Anxiety disorder, unspecified (5) Bipolar 1 disorder, depressed DIMITRI GODINEZ MD Apr 11, 2021 21:20
--- NOTE | 2021-04-11 23:15 | NUR ---
Nursing Note Pt spits at staff during interactions prior to shower. Pt was resistant to taking a shower, was threatening to punch staff although he is very weak, then started to spit in their faces saying "I'm going to bite my cheek and spit blood in your eyes!!" Staff gave him a mask and proceeded with the shower. Pt then was compliant and cooperative with nursing assistants. Pt takes meds whole, cooperative with assessment. 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 He then begins singing Moreno, he misunderstood my introduction and thought my name was Moreno. "Look at me, I'm as helpless as a kitten in a tree, and I feel like I'm clinging to a cloud I can't understand I get moreno just holding your hand" I told him Ramiro Gil sang that song on stage once, and complained about being dressed like a matador that he was embarrassed. The patient laughed and stated he had heard that interview. Pt goes on the ask the FARM EQUIPMENT MAINTENANCE SUPERVISOR to be his primary bath aid for his stay because "She knows how to talk to people" and "I like the way you treat me". FARM EQUIPMENT MAINTENANCE SUPERVISOR told him she will be happy to but only works on certain days and needs to be compliant when she is not here but to please refrain from spitting and threatening staff. Pt stated he would try.
[2021-04-12] MEDS: HYDROcodone/APAP 5/325MG 1 TAB TABLET PO SCH ×4 (05:35→20:59)
[2021-04-12 05:41] VITALS: BP 138/77
--- NOTE | 2021-04-12 06:26 | EKG ---
[address] [address] Test Date: 2021-04-11 Test Time: 09:27:00 Pat Name: MATY VINCENT Department: Room: [address] [place] [address] Gender: M Barrel Brander: : 1950 Requested By: DIMITRI GODINEZ Order Number: [id number] Reading MD: Titus Romano MD Measurements Intervals [place] Rate: P: MT: QRS: QRSD: T: QT: QTc: Interpretive Statements SR NON-SPECIFIC ST/T CHANGES Electronically Signed On 04-12-2021 9:44:10 LAYOUT FORMER by Titus Romano MD
[2021-04-12] MEDS: metFORMIN 500 MG TABLET PO SCH ×2 (08:16→17:28)
[2021-04-12] MEDS: buPROPion 75 MG TABLET PO SCH ×2 (08:16→12:25)
[2021-04-12] MEDS: GABAPENTIN 300 MG CAPSULE. PO SCH ×3 (08:16→20:58)
[2021-04-12] MEDS: BACLOFEN 20 MG TABLET PO SCH ×3 (08:16→20:54)
[2021-04-12] MEDS: DOCUSATE SODIUM 100 MG CAPSULE PO SCH (08:16)
[2021-04-12] MEDS: POLYETHYLENE GLYCOL 3350 17 GM PACKET. PO SCH (08:17)
[2021-04-12] MEDS: ASCORBIC ACID 500 MG TABLET PO SCH ×3 (08:17→20:55)
[2021-04-12] MEDS: ACETAMINOPHEN 500 MG TABLET PO SCH ×2 (08:17→20:58)
[2021-04-12] MEDS: RILUZOLE 50 MG PO SCH ×2 (10:00→20:58)
--- NOTE | 2021-04-12 10:21 | NUR ---
Pt appropriate so far this shift. He participates in assessment and is medication compliant. He is A&Ox4, absent of SI/HI/VH/AH/delusions. He reports 7/10 pain in the pelvis, PRN medication administered per MAR. He has been absent of verbal/physical aggression so far this shift. He makes multiple requests to lay back down in bed despite encouragement to stay out of bed and remain in broda chair. Plan of care continues, will pass to next shift.
[2021-04-12 15:26] VITALS: BP 111/65
--- NOTE | 2021-04-12 16:40 | NUR ---
SW attempted outreach to pt facility to provide update. SW awaiting call back. SW met 1:1 with pt and assisted in making calls to a friend, Nehemiah, who has his trumpet and told pt that he has mailed it to his facility. Pt told Nehemiah that as soon as he returned to his facility, he would mail him money to reimburse him the postage it cost to mail it. SW also assisted pt in calling his son for a brief visit that was very pleasant and they agreed to talk again tomorrow. SW finally assisted pt in calling another friend, Idalia, who he reports having attended music school with. Pt stated that he was appreciative of the time this SW spent with him visiting and assisting him with the calls. Pt stated that he felt like the suicidal comments he made that caused him to be admitted here to [facility] were completely out of line and he really never had any intention to hurt himself. Pt states that he is really looking forward to returning to his facility at [facility] on [address] and that he really likes the nursing staff and social work coordinator, Myra, there. Pt, furthermore, asked SW if he could get assistance in making a call to [employer] tomorrow because once he gets his trumpet back, he would like to get it tuned up so that he could someday help teach other to play it. SW will f/u with pt and facility tomorrow.
--- NOTE | 2021-04-12 20:53 | PDOC ---
Exam Note: Bran Note: Please also refer to the separate dictated note~for this date of service dictated separately.~Patient seen individually. Discussed the patient with Nursing staff reviewed the chart.~Reviewed interim history and current functioning. Reviewed vital signs,~Labs/ Radiology~and current medications noted below. Continue current treatment with the changes noted in the dictated addendum note Assessment: Vital Signs/I&O: Vital Signs Date Time Temp Pulse Resp B/P (MAP) Pulse Ox O2 Delivery O2 Flow Rate FiO2 04/12/21 15:26 99.1 95 18 111/65 (80) 94 Room Air 04/12/21 05:41 2.0 I & O 04/11/21 04/11/21 04/12/21 15:00 23:00 07:00 Intake Total 240 ml 340 ml Balance 240 ml 340 ml Current Medications: Meds: Current Medications Medications (Trade) Dose Ordered Sig/Yakelin Route PRN Reason Start Time Stop Time Status Last Admin Dose Admin Atorvastatin Calcium (Lipitor) 10 mg QHS PO 04/08/21 21:00 04/11/21 20:17 Baclofen (Lioresal) 20 mg TID PO 04/08/21 21:00 04/12/21 12:26 Bupropion HCl (Wellbutrin) 75 mg BID PO 04/08/21 21:00 04/09/21 18:10 DC 04/09/21 09:39 Docusate Sodium (Colace) 100 mg DAILY PO 04/09/21 09:00 04/12/21 08:16 Gabapentin (Neurontin) 300 mg TID PO 04/08/21 21:00 04/12/21 12:26 Acetaminophen/ Hydrocodone Bitart (Lortab 5/325) 1 tab PRN Q6HRS PRN PO PAIN 04/08/21 17:45 04/09/21 15:40 DC 04/09/21 13:18 Metformin HCl (Glucophage) 500 mg BIDWMEALS PO 04/09/21 08:00 04/12/21 17:28 Mirtazapine (Remeron) 30 mg QHS PO 04/08/21 21:00 04/11/21 20:16 Tramadol HCl (Ultram) 50 mg Q8HRS PO 04/08/21 22:00 04/09/21 15:40 DC 04/09/21 13:01 Trazodone HCl (Desyrel) 100 mg QHS PO 04/08/21 21:00 04/11/21 20:16 Ascorbic Acid (Vitamin C) 1,000 mg TID PO 04/08/21 21:00 04/12/21 12:26 Non-Formulary Medication (Beta-Carotene (Beta Carotene)) 25,000 unit DAILY PO 04/09/21 09:00 UNV Vitamin D (Vitamin D3) 50,000 unit QM@0900 PO 04/18/21 09:00 Citalopram Hydrobromide (CeleXA) 40 mg DAILY PO 04/09/21 09:00 04/09/21 18:40 DC 04/09/21 09:40 Polyethylene Glycol (miraLAX) 17 gm DAILY PO 04/09/21 09:00 04/12/21 08:17 Quetiapine Fumarate (SEROquel) 300 mg QHS PO 04/08/21 21:00 04/11/21 20:16 Non-Formulary Medication (Riluzole ) 50 mg BID PO 04/08/21 21:00 04/11/21 10:42 DC 04/11/21 09:15 Multi-Ingredient Ointment (Analgesic [place]) 1 komal PRN QID PRN TP MUSCLE PAIN 04/08/21 17:45 Al Hydroxide/Mg Hydroxide (Mylanta Plus Xs) 15 ml PRN AFTMEALHC PRN PO DYSPEPSIA 04/08/21 17:45 Magnesium Hydroxide (Milk Of Magnesia) 2,400 mg PRN QHS PRN PO CONSTIPATION 04/08/21 17:45 Acetaminophen (Tylenol) 1,000 mg BID PO 04/08/21 21:00 04/12/21 08:17 Influenza Virus Vaccine Quadrival (Flulaval Quad [id number] Syringe) 0.5 ml ONCE ONCE VAX IM 04/09/21 09:00 04/09/21 09:01 DC 04/09/21 09:43 Citalopram Hydrobromide (CeleXA) 40 mg DAILY PO 04/10/21 09:00 04/09/21 18:40 DC Acetaminophen/ Hydrocodone Bitart (Lortab 5/325) 1 tab Q8HRS PO 04/09/21 15:45 04/12/21 12:25 Nicotine (Nicoderm Cq 14mg Patch) 1 patch PRN DAILY PRN TD SMOKING CESSATION 04/09/21 17:30 Bupropion HCl (Wellbutrin) 150 mg DAILY PO 04/10/21 09:00 04/12/21 08:16 Bupropion HCl (Wellbutrin) 75 mg 1200 PO 04/10/21 12:00 04/12/21 12:25 Riluzole (Riluzole) 50 mg BID@1000,2200 PO 04/11/21 22:00 04/12/21 10:00 Riluzole (Riluzole) 50 mg STK-MED ONCE .ROUTE 04/09/21 21:00 04/11/21 10:42 DC Riluzole (Riluzole) 50 mg STK-MED ONCE .ROUTE 04/10/21 09:00 04/11/21 10:42 DC Riluzole (Riluzole) 50 mg STK-MED ONCE .ROUTE 04/11/21 09:00 04/11/21 10:42 DC Current Medications Medications (Trade) Dose Ordered Sig/Yakelin Route PRN Reason Start Time Stop Time Status Last Admin Dose Admin Riluzole (Riluzole) 50 mg BID@1000,2200 PO 04/11/21 22:00 04/12/21 10:00 I have reviewed the current psychotropics carefully including drug interactions. Risk benefit ratio favors no change other than as noted in my dictated progress note. Diagnosis: Problems: (1) MDD (major depressive disorder) (2) Suicidal ideations (3) Amyotrophic lateral sclerosis (4) Anxiety disorder, unspecified (5) Bipolar 1 disorder, depressed DIMITRI GODINEZ MD Apr 12, 2021 20:53
[2021-04-12] MEDS: traZODone 100 MG TABLET. PO SCH (20:54)
[2021-04-12] MEDS: QUEtiapine 100 MG TABLET. PO SCH (20:55)
[2021-04-12] MEDS: ATORVASTATIN CALCIUM 10 MG TABLET. PO SCH (20:55)
[2021-04-12] MEDS: MIRTAZAPINE 30 MG TABLET PO SCH (20:55)
--- NOTE | 2021-04-13 05:04 | NUR ---
Nursing Note The patient was located in his room for his assessment and medication pass. The patient was pleasant during interactions with this nurse. The patient took his medication whole. THe patient was alert to name, date and location. The patient and this nurse discussed ALS and his experiences with the disease. The patient asked this nurse to change the music playing on the placido in his room for him. The patient is currently sleeping in his room.
[2021-04-13 06:12] VITALS: BP 149/69
[2021-04-13] MEDS: HYDROcodone/APAP 5/325MG 1 TAB TABLET PO SCH ×4 (06:14→22:00)
--- NOTE | 2021-04-13 07:16 | PDOC ---
Exam Note: Bran Note: This note is a late entry for 04/11/2021 covers elements not covered in my initial note. Subjective: The patient was reviewed at treatment team meeting individually in the morning on 04/11/2021 with Cecilia Cali, Rosa Jones, and Dina Mccabe (social contact worker), Alice, activity therapy and Kym MERCADO, discussed and reviewed the chart. The patient slept 8-1/4 hours previous night. He remains withdrawn, somewhat irritable, depressed but denies suicidal ideation. Review of Systems: Ambulation impaired in wheelchair due to his ALS. No CV, pulmonary, eye, ENT system symptoms on review. Mental Status Exam: The patient is reasonably oriented. Speech is coherent, has some latency, quite irritable. Abstraction fair. Computation impaired. Language function intact. Attention span short. Mood and affect depressed, somewhat distractible. No suicidal ideation. Laboratory Data: Reviewed. Impression: Major depressive disorder severe. Anxiety disorder unspecified. Plan: Continue current psychotropics unchanged. Assessment: Vital Signs/I&O: Vital Signs Date Time Temp Pulse Resp B/P (MAP) Pulse Ox O2 Delivery O2 Flow Rate FiO2 04/13/21 06:12 98.2 76 20 149/69 (95) 94 04/12/21 21:29 Room Air 04/12/21 05:41 2.0 I & O 04/12/21 04/12/21 04/13/21 14:59 22:59 06:59 Intake Total 960 ml 340 ml Balance 960 ml 340 ml Current Medications: Meds: Current Medications Medications (Trade) Dose Ordered Sig/Yakelin Route PRN Reason Start Time Stop Time Status Last Admin Dose Admin Atorvastatin Calcium (Lipitor) 10 mg QHS PO 04/08/21 21:00 04/12/21 20:55 Baclofen (Lioresal) 20 mg TID PO 04/08/21 21:00 04/12/21 20:54 Bupropion HCl (Wellbutrin) 75 mg BID PO 04/08/21 21:00 04/09/21 18:10 DC 04/09/21 09:39 Docusate Sodium (Colace) 100 mg DAILY PO 04/09/21 09:00 04/12/21 08:16 Gabapentin (Neurontin) 300 mg TID PO 04/08/21 21:00 04/12/21 20:58 Acetaminophen/ Hydrocodone Bitart (Lortab 5/325) 1 tab PRN Q6HRS PRN PO PAIN 04/08/21 17:45 04/09/21 15:40 DC 04/09/21 13:18 Metformin HCl (Glucophage) 500 mg BIDWMEALS PO 04/09/21 08:00 04/12/21 17:28 Mirtazapine (Remeron) 30 mg QHS PO 04/08/21 21:00 04/12/21 20:55 Tramadol HCl (Ultram) 50 mg Q8HRS PO 04/08/21 22:00 04/09/21 15:40 DC 04/09/21 13:01 Trazodone HCl (Desyrel) 100 mg QHS PO 04/08/21 21:00 04/12/21 20:54 Ascorbic Acid (Vitamin C) 1,000 mg TID PO 04/08/21 21:00 04/12/21 20:55 Non-Formulary Medication (Beta-Carotene (Beta Carotene)) 25,000 unit DAILY PO 04/09/21 09:00 UNV Vitamin D (Vitamin D3) 50,000 unit QM@0900 PO 04/18/21 09:00 Citalopram Hydrobromide (CeleXA) 40 mg DAILY PO 04/09/21 09:00 04/09/21 18:40 DC 04/09/21 09:40 Polyethylene Glycol (miraLAX) 17 gm DAILY PO 04/09/21 09:00 04/12/21 08:17 Quetiapine Fumarate (SEROquel) 300 mg QHS PO 04/08/21 21:00 04/13/21 03:24 DC 04/12/21 20:55 Non-Formulary Medication (Riluzole ) 50 mg BID PO 04/08/21 21:00 04/11/21 10:42 DC 04/11/21 09:15 Multi-Ingredient Ointment (Analgesic [place]) 1 komal PRN QID PRN TP MUSCLE PAIN 04/08/21 17:45 Al Hydroxide/Mg Hydroxide (Mylanta Plus Xs) 15 ml PRN AFTMEALHC PRN PO DYSPEPSIA 04/08/21 17:45 Magnesium Hydroxide (Milk Of Magnesia) 2,400 mg PRN QHS PRN PO CONSTIPATION 04/08/21 17:45 Acetaminophen (Tylenol) 1,000 mg BID PO 04/08/21 21:00 04/12/21 20:58 Influenza Virus Vaccine Quadrival (Flulaval Quad [id number] Syringe) 0.5 ml ONCE ONCE VAX IM 04/09/21 09:00 04/09/21 09:01 DC 04/09/21 09:43 Citalopram Hydrobromide (CeleXA) 40 mg DAILY PO 04/10/21 09:00 04/09/21 18:40 DC Acetaminophen/ Hydrocodone Bitart (Lortab 5/325) 1 tab Q8HRS PO 04/09/21 15:45 04/12/21 20:59 Nicotine (Nicoderm Cq 14mg Patch) 1 patch PRN DAILY PRN TD SMOKING CESSATION 04/09/21 17:30 Bupropion HCl (Wellbutrin) 150 mg DAILY PO 04/10/21 09:00 04/12/21 08:16 Bupropion HCl (Wellbutrin) 75 mg 1200 PO 04/10/21 12:00 04/13/21 03:24 DC 04/12/21 12:25 Riluzole (Riluzole) 50 mg BID@1000,2200 PO 04/11/21 22:00 04/12/21 20:58 Riluzole (Riluzole) 50 mg STK-MED ONCE .ROUTE 04/09/21 21:00 04/11/21 10:42 DC Riluzole (Riluzole) 50 mg STK-MED ONCE .ROUTE 04/10/21 09:00 04/11/21 10:42 DC Riluzole (Riluzole) 50 mg STK-MED ONCE .ROUTE 04/11/21 09:00 04/11/21 10:42 DC Bupropion HCl (Wellbutrin) 150 mg 1200 PO 04/13/21 12:00 Quetiapine Fumarate (SEROquel) 250 mg QHS PO 04/13/21 21:00 Quetiapine Fumarate (SEROquel) 50 mg BID@0900,1500 PO 04/13/21 09:00 I have reviewed the current psychotropics carefully including drug interactions. Risk benefit ratio favors no change other than as noted in my dictated progress note. Diagnosis: Problems: (1) MDD (major depressive disorder) (2) Amyotrophic lateral sclerosis (3) Anxiety disorder, unspecified (4) Bipolar 1 disorder, depressed DIMITRI GODINEZ MD Apr 13, 2021 07:16
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
[2021-04-13] MEDS: POLYETHYLENE GLYCOL 3350 17 GM PACKET. PO SCH (08:53)
[2021-04-13] MEDS: DOCUSATE SODIUM 100 MG CAPSULE PO SCH (08:55)
[2021-04-13] MEDS: ASCORBIC ACID 500 MG TABLET PO SCH ×3 (08:55→21:14)
[2021-04-13] MEDS: metFORMIN 500 MG TABLET PO SCH ×2 (08:55→17:22)
[2021-04-13] MEDS: GABAPENTIN 300 MG CAPSULE. PO SCH ×3 (08:55→21:14)
[2021-04-13] MEDS: QUEtiapine 50 MG TABLET. PO SCH ×2 (08:55→15:34)
[2021-04-13] MEDS: BACLOFEN 20 MG TABLET PO SCH ×3 (08:55→21:14)
[2021-04-13] MEDS: buPROPion 75 MG TABLET PO SCH ×2 (08:55→12:33)
[2021-04-13] MEDS: ACETAMINOPHEN 500 MG TABLET PO SCH ×2 (08:55→21:14)
[2021-04-13] MEDS: RILUZOLE 50 MG PO SCH ×2 (08:56→21:15)
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
--- NOTE | 2021-04-13 14:37 | NUR ---
Nursing note: Patient is in his room for morning medication & assessment. He is compliant with medications taken whole. He is alert and oriented x 4, can be needy, demanding, as well as some sarcasm when he answers. He stayed in bed through the day. He denies any SI at this time. Patient requires lift assist and feeding assistance. He is currently laying in bed talking on the phone. Will continue to monitor.
[2021-04-13 15:43] VITALS: BP 92/62
[2021-04-13] MEDS: traZODone 100 MG TABLET. PO SCH (21:14)
[2021-04-13] MEDS: ATORVASTATIN CALCIUM 10 MG TABLET. PO SCH (21:14)
[2021-04-13] MEDS: MIRTAZAPINE 30 MG TABLET PO SCH (21:14)
--- NOTE | 2021-04-13 21:19 | PDOC ---
Exam Note: Bran Note: Please also refer to the separate dictated note~for this date of service dictated separately.~Patient seen individually. Discussed the patient with Nursing staff reviewed the chart.~Reviewed interim history and current functioning. Reviewed vital signs,~Labs/ Radiology~and current medications noted below. Continue current treatment with the changes noted in the dictated addendum note Assessment: Vital Signs/I&O: Vital Signs Date Time Temp Pulse Resp B/P (MAP) Pulse Ox O2 Delivery O2 Flow Rate FiO2 04/13/21 15:43 98.7 103 16 92/62 (72) 98 04/12/21 21:29 Room Air 04/12/21 05:41 2.0 I & O 04/12/21 04/12/21 04/13/21 15:00 23:00 07:00 Intake Total 960 ml 340 ml Balance 960 ml 340 ml Current Medications: Meds: Current Medications Medications (Trade) Dose Ordered Sig/Yakelin Route PRN Reason Start Time Stop Time Status Last Admin Dose Admin Atorvastatin Calcium (Lipitor) 10 mg QHS PO 04/08/21 21:00 04/13/21 21:14 Baclofen (Lioresal) 20 mg TID PO 04/08/21 21:00 04/13/21 21:14 Bupropion HCl (Wellbutrin) 75 mg BID PO 04/08/21 21:00 04/09/21 18:10 DC 04/09/21 09:39 Docusate Sodium (Colace) 100 mg DAILY PO 04/09/21 09:00 04/13/21 08:55 Gabapentin (Neurontin) 300 mg TID PO 04/08/21 21:00 04/13/21 21:14 Acetaminophen/ Hydrocodone Bitart (Lortab 5/325) 1 tab PRN Q6HRS PRN PO PAIN 04/08/21 17:45 04/09/21 15:40 DC 04/09/21 13:18 Metformin HCl (Glucophage) 500 mg BIDWMEALS PO 04/09/21 08:00 04/13/21 17:22 Mirtazapine (Remeron) 30 mg QHS PO 04/08/21 21:00 04/13/21 21:14 Tramadol HCl (Ultram) 50 mg Q8HRS PO 04/08/21 22:00 04/09/21 15:40 DC 04/09/21 13:01 Trazodone HCl (Desyrel) 100 mg QHS PO 04/08/21 21:00 04/13/21 21:14 Ascorbic Acid (Vitamin C) 1,000 mg TID PO 04/08/21 21:00 04/13/21 21:14 Non-Formulary Medication (Beta-Carotene (Beta Carotene)) 25,000 unit DAILY PO 04/09/21 09:00 UNV Vitamin D (Vitamin D3) 50,000 unit QM@0900 PO 04/18/21 09:00 Citalopram Hydrobromide (CeleXA) 40 mg DAILY PO 04/09/21 09:00 04/09/21 18:40 DC 04/09/21 09:40 Polyethylene Glycol (miraLAX) 17 gm DAILY PO 04/09/21 09:00 04/13/21 08:53 Quetiapine Fumarate (SEROquel) 300 mg QHS PO 04/08/21 21:00 04/13/21 03:24 DC 04/12/21 20:55 Non-Formulary Medication (Riluzole ) 50 mg BID PO 04/08/21 21:00 04/11/21 10:42 DC 04/11/21 09:15 Multi-Ingredient Ointment (Analgesic [place]) 1 komal PRN QID PRN TP MUSCLE PAIN 04/08/21 17:45 Al Hydroxide/Mg Hydroxide (Mylanta Plus Xs) 15 ml PRN AFTMEALHC PRN PO DYSPEPSIA 04/08/21 17:45 Magnesium Hydroxide (Milk Of Magnesia) 2,400 mg PRN QHS PRN PO CONSTIPATION 04/08/21 17:45 Acetaminophen (Tylenol) 1,000 mg BID PO 04/08/21 21:00 04/13/21 21:14 Influenza Virus Vaccine Quadrival (Flulaval Quad [id number] Syringe) 0.5 ml ONCE ONCE VAX IM 04/09/21 09:00 04/09/21 09:01 DC 04/09/21 09:43 Citalopram Hydrobromide (CeleXA) 40 mg DAILY PO 04/10/21 09:00 04/09/21 18:40 DC Acetaminophen/ Hydrocodone Bitart (Lortab 5/325) 1 tab Q8HRS PO 04/09/21 15:45 04/13/21 13:47 Nicotine (Nicoderm Cq 14mg Patch) 1 patch PRN DAILY PRN TD SMOKING CESSATION 04/09/21 17:30 Bupropion HCl (Wellbutrin) 150 mg DAILY PO 04/10/21 09:00 04/13/21 08:55 Bupropion HCl (Wellbutrin) 75 mg 1200 PO 04/10/21 12:00 04/13/21 03:24 DC 04/12/21 12:25 Riluzole (Riluzole) 50 mg BID@1000,2200 PO 04/11/21 22:00 04/13/21 21:15 Riluzole (Riluzole) 50 mg STK-MED ONCE .ROUTE 04/09/21 21:00 04/11/21 10:42 DC Riluzole (Riluzole) 50 mg STK-MED ONCE .ROUTE 04/10/21 09:00 04/11/21 10:42 DC Riluzole (Riluzole) 50 mg STK-MED ONCE .ROUTE 04/11/21 09:00 04/11/21 10:42 DC Bupropion HCl (Wellbutrin) 150 mg 1200 PO 04/13/21 12:00 04/13/21 12:33 Quetiapine Fumarate (SEROquel) 250 mg QHS PO 04/13/21 21:00 Quetiapine Fumarate (SEROquel) 50 mg BID@0900,1500 PO 04/13/21 09:00 04/13/21 15:34 Current Medications Medications (Trade) Dose Ordered Sig/Yakelin Route PRN Reason Start Time Stop Time Status Last Admin Dose Admin Bupropion HCl (Wellbutrin) 150 mg 1200 PO 04/13/21 12:00 04/13/21 12:33 Quetiapine Fumarate (SEROquel) 50 mg BID@0900,1500 PO 04/13/21 09:00 04/13/21 15:34 I have reviewed the current psychotropics carefully including drug interactions. Risk benefit ratio favors no change other than as noted in my dictated progress note. Diagnosis: Problems: (1) MDD (major depressive disorder) (2) Amyotrophic lateral sclerosis (3) Anxiety disorder, unspecified (4) Bipolar 1 disorder, depressed DIMITRI GODINEZ MD Apr 13, 2021 21:19
[2021-04-13] MEDS: QUEtiapine 100 MG TABLET. PO SCH (21:20)
[2021-04-14] MEDS: HYDROcodone/APAP 5/325MG 1 TAB TABLET PO SCH ×3 (05:28→21:25)
[2021-04-14 06:27] VITALS: BP 89/58
--- NOTE | 2021-04-14 07:27 | PDOC ---
Exam Note: Bran Note: This note is a late entry for 04/13/2021 covers elements not covered in my initial note. Subjective: The patient was seen individually in the evening of 04/13/2021 with Jessie MERCADO, discussed and reviewed the chart. The patient slept 6-1/2 hours previous night. Overall patient remains somewhat irritable, anxious, labile. He feels the Seroquel has helped some of his anxiety, mood lability. Review of Systems: Positive for the pain consequent to ALS. Impaired ambulation in Broda chair. No CV, , pulmonary, eye, ENT system symptoms on review. Mental Status Exam: The patient is reasonably oriented. Speech is coherent. Abstraction fair. Computation impaired. Language function intact. Mood and affect withdrawn. No suicidal or homicidal ideation. Laboratory Data: Reviewed. Impression: Major depressive disorder, recurrent, severe. Anxiety disorder unspecified. Plan: Continue rest of the psychotropics unchanged. Maintain Seroquel that we have adjusted. Continue Wellbutrin, Neurontin, Remeron and trazodone. Adjust further as clinically indicated. Assessment: Vital Signs/I&O: Vital Signs Date Time Temp Pulse Resp B/P (MAP) Pulse Ox O2 Delivery O2 Flow Rate FiO2 04/14/21 06:27 99.0 107 18 89/58 (68) 93 04/14/21 06:00 Room Air 04/12/21 05:41 2.0 I & O 04/13/21 04/13/21 04/14/21 15:00 23:00 07:00 Intake Total 967 ml 420 ml Balance 967 ml 420 ml Current Medications: Meds: Current Medications Medications (Trade) Dose Ordered Sig/Yakelin Route PRN Reason Start Time Stop Time Status Last Admin Dose Admin Atorvastatin Calcium (Lipitor) 10 mg QHS PO 04/08/21 21:00 04/13/21 21:14 Baclofen (Lioresal) 20 mg TID PO 04/08/21 21:00 04/13/21 21:14 Bupropion HCl (Wellbutrin) 75 mg BID PO 04/08/21 21:00 04/09/21 18:10 DC 04/09/21 09:39 Docusate Sodium (Colace) 100 mg DAILY PO 04/09/21 09:00 04/13/21 08:55 Gabapentin (Neurontin) 300 mg TID PO 04/08/21 21:00 04/13/21 21:14 Acetaminophen/ Hydrocodone Bitart (Lortab 5/325) 1 tab PRN Q6HRS PRN PO PAIN 04/08/21 17:45 04/09/21 15:40 DC 04/09/21 13:18 Metformin HCl (Glucophage) 500 mg BIDWMEALS PO 04/09/21 08:00 04/13/21 17:22 Mirtazapine (Remeron) 30 mg QHS PO 04/08/21 21:00 04/13/21 21:14 Tramadol HCl (Ultram) 50 mg Q8HRS PO 04/08/21 22:00 04/09/21 15:40 DC 04/09/21 13:01 Trazodone HCl (Desyrel) 100 mg QHS PO 04/08/21 21:00 04/13/21 21:14 Ascorbic Acid (Vitamin C) 1,000 mg TID PO 04/08/21 21:00 04/13/21 21:14 Non-Formulary Medication (Beta-Carotene (Beta Carotene)) 25,000 unit DAILY PO 04/09/21 09:00 UNV Vitamin D (Vitamin D3) 50,000 unit QM@0900 PO 04/18/21 09:00 Citalopram Hydrobromide (CeleXA) 40 mg DAILY PO 04/09/21 09:00 04/09/21 18:40 DC 04/09/21 09:40 Polyethylene Glycol (miraLAX) 17 gm DAILY PO 04/09/21 09:00 04/13/21 08:53 Quetiapine Fumarate (SEROquel) 300 mg QHS PO 04/08/21 21:00 04/13/21 03:24 DC 04/12/21 20:55 Non-Formulary Medication (Riluzole ) 50 mg BID PO 04/08/21 21:00 04/11/21 10:42 DC 04/11/21 09:15 Multi-Ingredient Ointment (Analgesic [place]) 1 komal PRN QID PRN TP MUSCLE PAIN 04/08/21 17:45 Al Hydroxide/Mg Hydroxide (Mylanta Plus Xs) 15 ml PRN AFTMEALHC PRN PO DYSPEPSIA 04/08/21 17:45 Magnesium Hydroxide (Milk Of Magnesia) 2,400 mg PRN QHS PRN PO CONSTIPATION 04/08/21 17:45 Acetaminophen (Tylenol) 1,000 mg BID PO 04/08/21 21:00 04/13/21 21:14 Influenza Virus Vaccine Quadrival (Flulaval Quad [id number] Syringe) 0.5 ml ONCE ONCE VAX IM 04/09/21 09:00 04/09/21 09:01 DC 04/09/21 09:43 Citalopram Hydrobromide (CeleXA) 40 mg DAILY PO 04/10/21 09:00 04/09/21 18:40 DC Acetaminophen/ Hydrocodone Bitart (Lortab 5/325) 1 tab Q8HRS PO 04/09/21 15:45 04/14/21 05:28 Nicotine (Nicoderm Cq 14mg Patch) 1 patch PRN DAILY PRN TD SMOKING CESSATION 04/09/21 17:30 Bupropion HCl (Wellbutrin) 150 mg DAILY PO 04/10/21 09:00 04/13/21 08:55 Bupropion HCl (Wellbutrin) 75 mg 1200 PO 04/10/21 12:00 04/13/21 03:24 DC 04/12/21 12:25 Riluzole (Riluzole) 50 mg BID@1000,2200 PO 04/11/21 22:00 04/13/21 21:15 Riluzole (Riluzole) 50 mg STK-MED ONCE .ROUTE 04/09/21 21:00 04/11/21 10:42 DC Riluzole (Riluzole) 50 mg STK-MED ONCE .ROUTE 04/10/21 09:00 04/11/21 10:42 DC Riluzole (Riluzole) 50 mg STK-MED ONCE .ROUTE 04/11/21 09:00 04/11/21 10:42 DC Bupropion HCl (Wellbutrin) 150 mg 1200 PO 04/13/21 12:00 04/13/21 12:33 Quetiapine Fumarate (SEROquel) 250 mg QHS PO 04/13/21 21:00 04/13/21 21:20 Quetiapine Fumarate (SEROquel) 50 mg BID@0900,1500 PO 04/13/21 09:00 04/13/21 15:34 Current Medications Medications (Trade) Dose Ordered Sig/Yakelin Route PRN Reason Start Time Stop Time Status Last Admin Dose Admin Bupropion HCl (Wellbutrin) 150 mg 1200 PO 04/13/21 12:00 04/13/21 12:33 Quetiapine Fumarate (SEROquel) 250 mg QHS PO 04/13/21 21:00 04/13/21 21:20 Quetiapine Fumarate (SEROquel) 50 mg BID@0900,1500 PO 04/13/21 09:00 04/13/21 15:34 I have reviewed the current psychotropics carefully including drug interactions. Risk benefit ratio favors no change other than as noted in my dictated progress note. Diagnosis: Problems: (1) Major depressive disorder, recurrent episode, severe (2) Anxiety disorder, unspecified (3) Bipolar 1 disorder, depressed (4) Amyotrophic lateral sclerosis DIMITRI GODINEZ MD Apr 14, 2021 07:27
[2021-04-14] MEDS: QUEtiapine 50 MG TABLET. PO SCH ×2 (08:47→15:03)
[2021-04-14] MEDS: BACLOFEN 20 MG TABLET PO SCH ×3 (08:47→21:19)
[2021-04-14] MEDS: ACETAMINOPHEN 500 MG TABLET PO SCH ×2 (08:47→21:20)
[2021-04-14] MEDS: GABAPENTIN 300 MG CAPSULE. PO SCH ×3 (08:47→21:19)
[2021-04-14] MEDS: ASCORBIC ACID 500 MG TABLET PO SCH ×3 (08:47→21:20)
[2021-04-14] MEDS: metFORMIN 500 MG TABLET PO SCH ×2 (08:48→17:00)
[2021-04-14] MEDS: buPROPion 75 MG TABLET PO SCH ×2 (08:48→12:18)
[2021-04-14] MEDS: DOCUSATE SODIUM 100 MG CAPSULE PO SCH (08:48)
[2021-04-14] MEDS: POLYETHYLENE GLYCOL 3350 17 GM PACKET. PO SCH (08:59)
--- NOTE | 2021-04-14 11:04 | NUR ---
Pt appropriate so far this shift. He participates in assessment and is medication compliant. He is A&Ox4, absent of SI/HI/VH/AH/delusions. He has not made any requests to leave tx so far this shift. He is appropriate in his interactions with staff. He has been absent of verbal/physical aggression so far this shift. Plan of care continues, will pass to next shift.
[2021-04-14] MEDS: RILUZOLE 50 MG PO SCH ×2 (12:18→22:00)
--- NOTE | 2021-04-14 13:30 | NUR ---
SW attempted call to pt facility. Left vm with Myra requesting call back. SW awaiting response.
[2021-04-14 16:18] VITALS: BP 103/62
--- NOTE | 2021-04-14 21:10 | PDOC ---
Exam Note: Bran Note: Please also refer to the separate dictated note~for this date of service dictated separately.~Patient seen individually. Discussed the patient with Nursing staff reviewed the chart.~Reviewed interim history and current functioning. Reviewed vital signs,~Labs/ Radiology~and current medications noted below. Continue current treatment with the changes noted in the dictated addendum note Assessment: Vital Signs/I&O: Vital Signs Date Time Temp Pulse Resp B/P (MAP) Pulse Ox O2 Delivery O2 Flow Rate FiO2 04/14/21 16:18 99.4 85 20 103/62 (76) 94 Room Air 04/12/21 05:41 2.0 I & O 04/13/21 04/13/21 04/14/21 15:00 23:00 07:00 Intake Total 967 ml 420 ml Balance 967 ml 420 ml Labs: Laboratory Tests Test 04/14/21 07:38 Glucose (Fingerstick) 94 mg/dL (70-99) Current Medications: Meds: Laboratory Tests Test 04/14/21 07:38 Glucose (Fingerstick) 94 mg/dL Current Medications Medications (Trade) Dose Ordered Sig/Yakelin Route PRN Reason Start Time Stop Time Status Last Admin Dose Admin Atorvastatin Calcium (Lipitor) 10 mg QHS PO 04/08/21 21:00 04/13/21 21:14 Baclofen (Lioresal) 20 mg TID PO 04/08/21 21:00 04/14/21 12:18 Bupropion HCl (Wellbutrin) 75 mg BID PO 04/08/21 21:00 04/09/21 18:10 DC 04/09/21 09:39 Docusate Sodium (Colace) 100 mg DAILY PO 04/09/21 09:00 04/14/21 08:48 Gabapentin (Neurontin) 300 mg TID PO 04/08/21 21:00 04/14/21 12:19 Acetaminophen/ Hydrocodone Bitart (Lortab 5/325) 1 tab PRN Q6HRS PRN PO PAIN 04/08/21 17:45 04/09/21 15:40 DC 04/09/21 13:18 Metformin HCl (Glucophage) 500 mg BIDWMEALS PO 04/09/21 08:00 04/14/21 17:00 Mirtazapine (Remeron) 30 mg QHS PO 04/08/21 21:00 04/13/21 21:14 Tramadol HCl (Ultram) 50 mg Q8HRS PO 04/08/21 22:00 04/09/21 15:40 DC 04/09/21 13:01 Trazodone HCl (Desyrel) 100 mg QHS PO 04/08/21 21:00 04/13/21 21:14 Ascorbic Acid (Vitamin C) 1,000 mg TID PO 04/08/21 21:00 04/14/21 12:18 Non-Formulary Medication (Beta-Carotene (Beta Carotene)) 25,000 unit DAILY PO 04/09/21 09:00 UNV Vitamin D (Vitamin D3) 50,000 unit QM@0900 PO 04/18/21 09:00 Citalopram Hydrobromide (CeleXA) 40 mg DAILY PO 04/09/21 09:00 04/09/21 18:40 DC 04/09/21 09:40 Polyethylene Glycol (miraLAX) 17 gm DAILY PO 04/09/21 09:00 04/14/21 08:59 Quetiapine Fumarate (SEROquel) 300 mg QHS PO 04/08/21 21:00 04/13/21 03:24 DC 04/12/21 20:55 Non-Formulary Medication (Riluzole ) 50 mg BID PO 04/08/21 21:00 04/11/21 10:42 DC 04/11/21 09:15 Multi-Ingredient Ointment (Analgesic [place]) 1 komal PRN QID PRN TP MUSCLE PAIN 04/08/21 17:45 Al Hydroxide/Mg Hydroxide (Mylanta Plus Xs) 15 ml PRN AFTMEALHC PRN PO DYSPEPSIA 04/08/21 17:45 Magnesium Hydroxide (Milk Of Magnesia) 2,400 mg PRN QHS PRN PO CONSTIPATION 04/08/21 17:45 Acetaminophen (Tylenol) 1,000 mg BID PO 04/08/21 21:00 04/14/21 08:47 Influenza Virus Vaccine Quadrival (Flulaval Quad [id number] Syringe) 0.5 ml ONCE ONCE VAX IM 04/09/21 09:00 04/09/21 09:01 DC 04/09/21 09:43 Citalopram Hydrobromide (CeleXA) 40 mg DAILY PO 04/10/21 09:00 04/09/21 18:40 DC Acetaminophen/ Hydrocodone Bitart (Lortab 5/325) 1 tab Q8HRS PO 04/09/21 15:45 04/14/21 15:03 Nicotine (Nicoderm Cq 14mg Patch) 1 patch PRN DAILY PRN TD SMOKING CESSATION 04/09/21 17:30 Bupropion HCl (Wellbutrin) 150 mg DAILY PO 04/10/21 09:00 04/14/21 08:48 Bupropion HCl (Wellbutrin) 75 mg 1200 PO 04/10/21 12:00 04/13/21 03:24 DC 04/12/21 12:25 Riluzole (Riluzole) 50 mg BID@1000,2200 PO 04/11/21 22:00 04/14/21 12:18 Riluzole (Riluzole) 50 mg STK-MED ONCE .ROUTE 04/09/21 21:00 04/11/21 10:42 DC Riluzole (Riluzole) 50 mg STK-MED ONCE .ROUTE 04/10/21 09:00 04/11/21 10:42 DC Riluzole (Riluzole) 50 mg STK-MED ONCE .ROUTE 04/11/21 09:00 04/11/21 10:42 DC Bupropion HCl (Wellbutrin) 150 mg 1200 PO 04/13/21 12:00 04/14/21 12:18 Quetiapine Fumarate (SEROquel) 250 mg QHS PO 04/13/21 21:00 04/13/21 21:20 Quetiapine Fumarate (SEROquel) 50 mg BID@0900,1500 PO 04/13/21 09:00 04/14/21 15:03 I have reviewed the current psychotropics carefully including drug interactions. Risk benefit ratio favors no change other than as noted in my dictated progress note. Diagnosis: Problems: (1) MDD (major depressive disorder) (2) Amyotrophic lateral sclerosis (3) Anxiety disorder, unspecified (4) Bipolar 1 disorder, depressed (5) Major depressive disorder, recurrent episode, severe HERBERTDIMITRI MD Apr 14, 2021 21:10
[2021-04-14] MEDS: ATORVASTATIN CALCIUM 10 MG TABLET. PO SCH (21:19)
[2021-04-14] MEDS: MIRTAZAPINE 30 MG TABLET PO SCH (21:20)
[2021-04-14] MEDS: traZODone 100 MG TABLET. PO SCH (21:20)
[2021-04-14] MEDS: QUEtiapine 100 MG TABLET. PO SCH (21:20)
--- NOTE | 2021-04-15 02:30 | NUR ---
Pt has been in his room tonight he has been cooperative with staff tonight. He took meds whole without difficulty and has had no behaviors tonight and has been sleeping.
[2021-04-15] MEDS: HYDROcodone/APAP 5/325MG 1 TAB TABLET PO SCH ×3 (05:37→21:06)
[2021-04-15 06:12] VITALS: BP 160/81
--- NOTE | 2021-04-15 07:36 | PDOC ---
Exam Note: Bran Note: This note is a late entry for 04/14/2021 covers elements not covered in my initial note. Subjective: The patient was seen individually in the evening of 04/14/2021 with Reji MERCADO, discussed and reviewed the chart. The patient slept 8-1/2 hours previous night. Review of Systems: He does have chronic pain. Impaired ambulation due to his ALS. No CV, , pulmonary, eye, ENT system symptoms on review. Mental Status Exam: The patient is reasonably oriented. Speech is coherent has some latency. Abstraction fair. Computation impaired. Language function intact. Mood and affect depressed. Laboratory Data: Reviewed. Impression: Major depressive disorder, recurrent, severe. Anxiety disorder unspecified. Plan: Continue rest of the psychotropics unchanged. Adjust further as clinically indicated. Assessment: Vital Signs/I&O: Vital Signs Date Time Temp Pulse Resp B/P (MAP) Pulse Ox O2 Delivery O2 Flow Rate FiO2 04/15/21 06:12 98.3 103 18 160/81 (107) 95 Nasal Cannula 2.0 I & O 04/14/21 04/14/21 04/15/21 15:00 23:00 07:00 Intake Total 640 ml 270 ml Balance 640 ml 270 ml Labs: Laboratory Tests Test 04/14/21 07:38 Glucose (Fingerstick) 94 mg/dL (70-99) Current Medications: Meds: Laboratory Tests Test 04/14/21 07:38 Glucose (Fingerstick) 94 mg/dL Current Medications Medications (Trade) Dose Ordered Sig/Yakelin Route PRN Reason Start Time Stop Time Status Last Admin Dose Admin Atorvastatin Calcium (Lipitor) 10 mg QHS PO 04/08/21 21:00 04/14/21 21:19 Baclofen (Lioresal) 20 mg TID PO 04/08/21 21:00 04/14/21 21:19 Bupropion HCl (Wellbutrin) 75 mg BID PO 04/08/21 21:00 04/09/21 18:10 DC 04/09/21 09:39 Docusate Sodium (Colace) 100 mg DAILY PO 04/09/21 09:00 04/14/21 08:48 Gabapentin (Neurontin) 300 mg TID PO 04/08/21 21:00 04/14/21 21:19 Acetaminophen/ Hydrocodone Bitart (Lortab 5/325) 1 tab PRN Q6HRS PRN PO PAIN 04/08/21 17:45 04/09/21 15:40 DC 04/09/21 13:18 Metformin HCl (Glucophage) 500 mg BIDWMEALS PO 04/09/21 08:00 04/14/21 17:00 Mirtazapine (Remeron) 30 mg QHS PO 04/08/21 21:00 04/14/21 21:20 Tramadol HCl (Ultram) 50 mg Q8HRS PO 04/08/21 22:00 04/09/21 15:40 DC 04/09/21 13:01 Trazodone HCl (Desyrel) 100 mg QHS PO 04/08/21 21:00 04/14/21 21:20 Ascorbic Acid (Vitamin C) 1,000 mg TID PO 04/08/21 21:00 04/14/21 21:20 Non-Formulary Medication (Beta-Carotene (Beta Carotene)) 25,000 unit DAILY PO 04/09/21 09:00 UNV Vitamin D (Vitamin D3) 50,000 unit QM@0900 PO 04/18/21 09:00 Citalopram Hydrobromide (CeleXA) 40 mg DAILY PO 04/09/21 09:00 04/09/21 18:40 DC 04/09/21 09:40 Polyethylene Glycol (miraLAX) 17 gm DAILY PO 04/09/21 09:00 04/14/21 08:59 Quetiapine Fumarate (SEROquel) 300 mg QHS PO 04/08/21 21:00 04/13/21 03:24 DC 04/12/21 20:55 Non-Formulary Medication (Riluzole ) 50 mg BID PO 04/08/21 21:00 04/11/21 10:42 DC 04/11/21 09:15 Multi-Ingredient Ointment (Analgesic [place]) 1 komal PRN QID PRN TP MUSCLE PAIN 04/08/21 17:45 Al Hydroxide/Mg Hydroxide (Mylanta Plus Xs) 15 ml PRN AFTMEALHC PRN PO DYSPEPSIA 04/08/21 17:45 Magnesium Hydroxide (Milk Of Magnesia) 2,400 mg PRN QHS PRN PO CONSTIPATION 04/08/21 17:45 Acetaminophen (Tylenol) 1,000 mg BID PO 04/08/21 21:00 04/14/21 21:20 Influenza Virus Vaccine Quadrival (Flulaval Quad [id number] Syringe) 0.5 ml ONCE ONCE VAX IM 04/09/21 09:00 04/09/21 09:01 DC 04/09/21 09:43 Citalopram Hydrobromide (CeleXA) 40 mg DAILY PO 04/10/21 09:00 04/09/21 18:40 DC Acetaminophen/ Hydrocodone Bitart (Lortab 5/325) 1 tab Q8HRS PO 04/09/21 15:45 04/15/21 05:37 Nicotine (Nicoderm Cq 14mg Patch) 1 patch PRN DAILY PRN TD SMOKING CESSATION 04/09/21 17:30 Bupropion HCl (Wellbutrin) 150 mg DAILY PO 04/10/21 09:00 04/14/21 08:48 Bupropion HCl (Wellbutrin) 75 mg 1200 PO 04/10/21 12:00 04/13/21 03:24 DC 04/12/21 12:25 Riluzole (Riluzole) 50 mg BID@1000,2200 PO 04/11/21 22:00 04/14/21 12:18 Riluzole (Riluzole) 50 mg STK-MED ONCE .ROUTE 04/09/21 21:00 04/11/21 10:42 DC Riluzole (Riluzole) 50 mg STK-MED ONCE .ROUTE 04/10/21 09:00 04/11/21 10:42 DC Riluzole (Riluzole) 50 mg STK-MED ONCE .ROUTE 04/11/21 09:00 04/11/21 10:42 DC Bupropion HCl (Wellbutrin) 150 mg 1200 PO 04/13/21 12:00 04/14/21 12:18 Quetiapine Fumarate (SEROquel) 250 mg QHS PO 04/13/21 21:00 04/14/21 21:20 Quetiapine Fumarate (SEROquel) 50 mg BID@0900,1500 PO 04/13/21 09:00 04/14/21 15:03 I have reviewed the current psychotropics carefully including drug interactions. Risk benefit ratio favors no change other than as noted in my dictated progress note. Diagnosis: Problems: (1) Amyotrophic lateral sclerosis (2) Anxiety disorder, unspecified (3) Bipolar 1 disorder, depressed (4) Major depressive disorder, recurrent episode, severe DIMITRI GODINEZ MD Apr 15, 2021 07:36
[2021-04-15] MEDS: RILUZOLE 50 MG PO SCH ×2 (08:25→21:05)
[2021-04-15] MEDS: ASCORBIC ACID 500 MG TABLET PO SCH ×3 (08:25→21:04)
[2021-04-15] MEDS: POLYETHYLENE GLYCOL 3350 17 GM PACKET. PO SCH (08:25)
[2021-04-15] MEDS: GABAPENTIN 300 MG CAPSULE. PO SCH ×3 (08:25→21:06)
[2021-04-15] MEDS: metFORMIN 500 MG TABLET PO SCH ×2 (08:25→17:15)
[2021-04-15] MEDS: DOCUSATE SODIUM 100 MG CAPSULE PO SCH (08:25)
[2021-04-15] MEDS: ACETAMINOPHEN 500 MG TABLET PO SCH ×3 (08:26→21:05)
[2021-04-15] MEDS: BACLOFEN 20 MG TABLET PO SCH ×3 (08:26→21:06)
[2021-04-15] MEDS: buPROPion 75 MG TABLET PO SCH ×2 (08:26→12:21)
[2021-04-15] MEDS: QUEtiapine 50 MG TABLET. PO SCH ×2 (08:26→14:12)
--- NOTE | 2021-04-15 08:47 | NUR ---
Pt has been present and visible on the unit this morning. He is appropriate in his interactions, participates in assessment and is medication compliant. He is A&Ox4, absent of SI/HI/VH/AH/delusions. He reports 7/10 pain in the pelvis, scheduled Acetaminophen administered per MAR. He has been absent of verbal/physical aggression so far this shift. Plan of care continues, will pass to next shift.
[2021-04-15 16:13] VITALS: BP 104/62
[2021-04-15] MEDS: QUEtiapine 100 MG TABLET. PO SCH (21:03)
[2021-04-15] MEDS: traZODone 100 MG TABLET. PO SCH (21:04)
[2021-04-15] MEDS: ATORVASTATIN CALCIUM 10 MG TABLET. PO SCH (21:04)
[2021-04-15] MEDS: MIRTAZAPINE 30 MG TABLET PO SCH (21:06)
--- NOTE | 2021-04-15 21:14 | PDOC ---
Exam Note: Bran Note: Please also refer to the separate dictated note~for this date of service dictated separately.~Patient seen individually. Discussed the patient with Nursing staff reviewed the chart.~Reviewed interim history and current functioning. Reviewed vital signs,~Labs/ Radiology~and current medications noted below. Continue current treatment with the changes noted in the dictated addendum note Assessment: Vital Signs/I&O: Vital Signs Date Time Temp Pulse Resp B/P (MAP) Pulse Ox O2 Delivery O2 Flow Rate FiO2 04/15/21 21:06 93 04/15/21 16:13 98.3 92 18 104/62 (76) 04/15/21 14:13 Room Air 04/15/21 06:12 2.0 I & O 04/14/21 04/14/21 04/15/21 15:00 23:00 07:00 Intake Total 640 ml 270 ml Balance 640 ml 270 ml Labs: Laboratory Tests Test 04/15/21 10:14 SARS-CoV-2 (PCR) Not detected (NOT DETECTD) Current Medications: Meds: Laboratory Tests Test 04/15/21 10:14 Coronavirus (COVID-19)(PCR) Not detected Current Medications Medications (Trade) Dose Ordered Sig/Yakelin Route PRN Reason Start Time Stop Time Status Last Admin Dose Admin Atorvastatin Calcium (Lipitor) 10 mg QHS PO 04/08/21 21:00 04/15/21 21:04 Baclofen (Lioresal) 20 mg TID PO 04/08/21 21:00 04/15/21 21:06 Bupropion HCl (Wellbutrin) 75 mg BID PO 04/08/21 21:00 04/09/21 18:10 DC 04/09/21 09:39 Docusate Sodium (Colace) 100 mg DAILY PO 04/09/21 09:00 04/15/21 08:25 Gabapentin (Neurontin) 300 mg TID PO 04/08/21 21:00 04/15/21 21:06 Acetaminophen/ Hydrocodone Bitart (Lortab 5/325) 1 tab PRN Q6HRS PRN PO PAIN 04/08/21 17:45 04/09/21 15:40 DC 04/09/21 13:18 Metformin HCl (Glucophage) 500 mg BIDWMEALS PO 04/09/21 08:00 04/15/21 17:15 Mirtazapine (Remeron) 30 mg QHS PO 04/08/21 21:00 04/15/21 21:06 Tramadol HCl (Ultram) 50 mg Q8HRS PO 04/08/21 22:00 04/09/21 15:40 DC 04/09/21 13:01 Trazodone HCl (Desyrel) 100 mg QHS PO 04/08/21 21:00 04/15/21 21:04 Ascorbic Acid (Vitamin C) 1,000 mg TID PO 04/08/21 21:00 04/15/21 21:04 Non-Formulary Medication (Beta-Carotene (Beta Carotene)) 25,000 unit DAILY PO 04/09/21 09:00 UNV Vitamin D (Vitamin D3) 50,000 unit QM@0900 PO 04/18/21 09:00 Citalopram Hydrobromide (CeleXA) 40 mg DAILY PO 04/09/21 09:00 04/09/21 18:40 DC 04/09/21 09:40 Polyethylene Glycol (miraLAX) 17 gm DAILY PO 04/09/21 09:00 04/15/21 08:25 Quetiapine Fumarate (SEROquel) 300 mg QHS PO 04/08/21 21:00 04/13/21 03:24 DC 04/12/21 20:55 Non-Formulary Medication (Riluzole ) 50 mg BID PO 04/08/21 21:00 04/11/21 10:42 DC 04/11/21 09:15 Multi-Ingredient Ointment (Analgesic [place]) 1 komal PRN QID PRN TP MUSCLE PAIN 04/08/21 17:45 Al Hydroxide/Mg Hydroxide (Mylanta Plus Xs) 15 ml PRN AFTMEALHC PRN PO DYSPEPSIA 04/08/21 17:45 Magnesium Hydroxide (Milk Of Magnesia) 2,400 mg PRN QHS PRN PO CONSTIPATION 04/08/21 17:45 Acetaminophen (Tylenol) 1,000 mg BID PO 04/08/21 21:00 04/15/21 21:05 Influenza Virus Vaccine Quadrival (Flulaval Quad [id number] Syringe) 0.5 ml ONCE ONCE VAX IM 04/09/21 09:00 04/09/21 09:01 DC 04/09/21 09:43 Citalopram Hydrobromide (CeleXA) 40 mg DAILY PO 04/10/21 09:00 04/09/21 18:40 DC Acetaminophen/ Hydrocodone Bitart (Lortab 5/325) 1 tab Q8HRS PO 04/09/21 15:45 04/15/21 21:06 Nicotine (Nicoderm Cq 14mg Patch) 1 patch PRN DAILY PRN TD SMOKING CESSATION 04/09/21 17:30 Bupropion HCl (Wellbutrin) 150 mg DAILY PO 04/10/21 09:00 04/15/21 08:26 Bupropion HCl (Wellbutrin) 75 mg 1200 PO 04/10/21 12:00 04/13/21 03:24 DC 04/12/21 12:25 Riluzole (Riluzole) 50 mg BID@1000,2200 PO 04/11/21 22:00 04/15/21 21:05 Riluzole (Riluzole) 50 mg STK-MED ONCE .ROUTE 04/09/21 21:00 04/11/21 10:42 DC Riluzole (Riluzole) 50 mg STK-MED ONCE .ROUTE 04/10/21 09:00 04/11/21 10:42 DC Riluzole (Riluzole) 50 mg STK-MED ONCE .ROUTE 04/11/21 09:00 04/11/21 10:42 DC Bupropion HCl (Wellbutrin) 150 mg 1200 PO 04/13/21 12:00 04/15/21 12:21 Quetiapine Fumarate (SEROquel) 250 mg QHS PO 04/13/21 21:00 04/15/21 21:03 Quetiapine Fumarate (SEROquel) 50 mg BID@0900,1500 PO 04/13/21 09:00 04/15/21 14:12 I have reviewed the current psychotropics carefully including drug interactions. Risk benefit ratio favors no change other than as noted in my dictated progress note. Diagnosis: Problems: (1) Amyotrophic lateral sclerosis (2) Anxiety disorder, unspecified (3) Bipolar 1 disorder, depressed (4) Major depressive disorder, recurrent episode, severe HERBERT,DIMITRI Coronado MD Apr 15, 2021 21:14
--- NOTE | 2021-04-15 23:45 | NUR ---
Patient is in his room on assumption of care, awake in bed. Alert and oriented x 4. Needy, demanding, can be sarcastic in his answers. Cooperative with bed bath and HS cares. Denies any SI thoughts at present time. No agitation. Patient appears to be sleeping comfortably at present time. Will continue to monitor.
[2021-04-16] MEDS: HYDROcodone/APAP 5/325MG 1 TAB TABLET PO SCH ×3 (05:21→21:09)
[2021-04-16 06:07] VITALS: BP 116/72
[2021-04-16] MEDS: metFORMIN 500 MG TABLET PO SCH ×2 (08:29→16:52)
[2021-04-16] MEDS: QUEtiapine 50 MG TABLET. PO SCH ×2 (08:30→15:10)
[2021-04-16] MEDS: RILUZOLE 50 MG PO SCH ×2 (08:30→21:09)
[2021-04-16] MEDS: BACLOFEN 20 MG TABLET PO SCH ×3 (08:30→21:00)
[2021-04-16] MEDS: buPROPion 75 MG TABLET PO SCH ×2 (08:30→12:16)
[2021-04-16] MEDS: GABAPENTIN 300 MG CAPSULE. PO SCH ×3 (08:30→21:06)
[2021-04-16] MEDS: ACETAMINOPHEN 500 MG TABLET PO SCH ×2 (08:30→21:08)
[2021-04-16] MEDS: ASCORBIC ACID 500 MG TABLET PO SCH ×3 (08:30→21:00)
[2021-04-16] MEDS: DOCUSATE SODIUM 100 MG CAPSULE PO SCH (08:32)
[2021-04-16] MEDS: POLYETHYLENE GLYCOL 3350 17 GM PACKET. PO SCH (08:32)
--- NOTE | 2021-04-16 09:42 | NUR ---
Pt has been present and visible on the unit this morning. He is currently up in his broda chair and he will at times yell out that he wants to get back into bed. He is not very receptive to explanation that he is bending relocation to a new room and once he is moved staff will be able to put him into bed. He is for the most part appropriate in his interactions, participates in assessment and is medication compliant. He is A&Ox4, absent of SI/HI/VH/AH/delusions. He reports 7/10 pain in the pelvis, scheduled Acetaminophen administered per AUG. He has been absent of verbal/physical aggression so far this shift. Plan of care continues, will pass to next shift.
[2021-04-16 13:07] LABS: BASO # 0.1 x10^3/uL (0.0-0.2); BASO % 1 % (0-3); EOS # 0.2 x10^3/uL (0.0-0.7); EOS % 3 % (0-3); HEMATOCRIT 28.4 % (39.0-53.0); HEMOGLOBIN 8.8 g/dL (13.0-17.5); LYMPH # 2.5 x10^3/uL (1.0-4.8); LYMPH % 29 % (24-48); MEAN CORPUSCULAR HEMOGLOBIN 26 pg (25-35); MEAN CORPUSCULAR HGB CONC 31 g/dL (31-37); MEAN CORPUSCULAR VOLUME 84 fL (79-100); MONO # 0.5 x10^3/uL (0.0-1.1); MONO % 6 % (0-9); NEUT # 5.2 x10^3uL (1.8-7.7); NEUT % 61 % (31-73); PLATELET COUNT 246 x10^3/uL (140-400); RED BLOOD COUNT 3.37 x10^6/uL (4.30-5.70); RED CELL DISTRIBUTION WIDTH 19.5 % (11.5-14.5); WHITE BLOOD COUNT 8.4 x10^3/uL (4.0-11.0)
[2021-04-16 13:34] LABS: ALBUMIN 3.4 g/dL (3.4-5.0); ALBUMIN/GLOBULIN RATIO 0.9 (1.0-1.7); CALCIUM 9.1 mg/dL (8.5-10.1); CREATININE 0.6 mg/dL (0.7-1.3); GFR 133.2; POTASSIUM 4.3 mmol/L (3.5-5.1); TOTAL BILIRUBIN 0.2 mg/dL (0.2-1.0); TOTAL PROTEIN 7.1 g/dL (6.4-8.2)
[2021-04-16 15:14] VITALS: BP 102/62
[2021-04-16] MEDS: traZODone 100 MG TABLET. PO SCH (20:58)
[2021-04-16] MEDS: QUEtiapine 100 MG TABLET. PO SCH (20:59)
[2021-04-16] MEDS: ATORVASTATIN CALCIUM 10 MG TABLET. PO SCH (20:59)
[2021-04-16] MEDS: MIRTAZAPINE 30 MG TABLET PO SCH (21:00)
--- NOTE | 2021-04-16 21:06 | PDOC ---
Exam Note: Bran Note: Please also refer to the separate dictated note~for this date of service dictated separately.~Patient seen individually. Discussed the patient with Nursing staff reviewed the chart.~Reviewed interim history and current functioning. Reviewed vital signs,~Labs/ Radiology~and current medications noted below. Continue current treatment with the changes noted in the dictated addendum note Assessment: Vital Signs/I&O: Vital Signs Date Time Temp Pulse Resp B/P (MAP) Pulse Ox O2 Delivery O2 Flow Rate FiO2 04/16/21 15:54 Room Air 04/16/21 15:14 97.2 96 17 102/62 (75) 96 04/15/21 06:12 2.0 I & O 0 04/15/21 04/15/21 04/16/21 15:00 23:00 07:00 Intake Total 807 ml 120 ml Balance 807 ml 120 ml Labs: Laboratory Tests Test 04/16/21 13:00 White Blood Count 8.4 x10^3/uL (4.0-11.0) Red Blood Count 3.37 x10^6/uL (4.30-5.70) L Hemoglobin 8.8 g/dL (13.0-17.5) L Hematocrit 28.4 % (39.0-53.0) L Mean Corpuscular Volume 84 fL (79-100) Mean Corpuscular Hemoglobin 26 pg (25-35) Mean Corpuscular Hemoglobin Concent 31 g/dL (31-37) Red Cell Distribution Width 19.5 % (11.5-14.5) H Platelet Count 246 x10^3/uL (140-400) Neutrophils (%) (Auto) 61 % (31-73) Lymphocytes (%) (Auto) 29 % (24-48) Monocytes (%) (Auto) 6 % (0-9) Eosinophils (%) (Auto) 3 % (0-3) Basophils (%) (Auto) 1 % (0-3) Neutrophils # (Auto) 5.2 x10^3uL (1.8-7.7) Lymphocytes # (Auto) 2.5 x10^3/uL (1.0-4.8) Monocytes # (Auto) 0.5 x10^3/uL (0.0-1.1) Eosinophils # (Auto) 0.2 x10^3/uL (0.0-0.7) Basophils # (Auto) 0.1 x10^3/uL (0.0-0.2) Sodium Level 139 mmol/L (136-145) Potassium Level 4.3 mmol/L (3.5-5.1) Chloride Level 103 mmol/L (98-107) Carbon Dioxide Level 27 mmol/L (21-32) Anion Gap 9 (6-14) Blood Urea Nitrogen 18 mg/dL (8-26) Creatinine 0.6 mg/dL (0.7-1.3) L Estimated GFR (Cockcroft-Gault) 133.2 BUN/Creatinine Ratio 30 (6-20) H Glucose Level 123 mg/dL (70-99) H Calcium Level 9.1 mg/dL (8.5-10.1) Total Bilirubin 0.2 mg/dL (0.2-1.0) Aspartate Amino Transferase (AST) 24 U/L (15-37) Alanine Aminotransferase (ALT) 30 U/L (16-63) Alkaline Phosphatase 56 U/L (46-116) Total Protein 7.1 g/dL (6.4-8.2) Albumin 3.4 g/dL (3.4-5.0) Albumin/Globulin Ratio 0.9 (1.0-1.7) L Current Medications: Meds: Laboratory Tests Test 04/16/21 13:00 White Blood Count 8.4 x10^3/uL Red Blood Count 3.37 x10^6/uL Hemoglobin 8.8 g/dL Hematocrit 28.4 % Mean Corpuscular Volume 84 fL Mean Corpuscular Hemoglobin 26 pg Mean Corpuscular Hemoglobin Concent 31 g/dL Red Cell Distribution Width 19.5 % Platelet Count 246 x10^3/uL Neutrophils (%) (Auto) 61 % Lymphocytes (%) (Auto) 29 % Monocytes (%) (Auto) 6 % Eosinophils (%) (Auto) 3 % Basophils (%) (Auto) 1 % Neutrophils # (Auto) 5.2 x10^3uL Lymphocytes # (Auto) 2.5 x10^3/uL Monocytes # (Auto) 0.5 x10^3/uL Eosinophils # (Auto) 0.2 x10^3/uL Basophils # (Auto) 0.1 x10^3/uL Sodium Level 139 mmol/L Potassium Level 4.3 mmol/L Chloride Level 103 mmol/L Carbon Dioxide Level 27 mmol/L Anion Gap 9 Blood Urea Nitrogen 18 mg/dL Creatinine 0.6 mg/dL Estimated GFR (Cockcroft-Gault) 133.2 BUN/Creatinine Ratio 30 Glucose Level 123 mg/dL Calcium Level 9.1 mg/dL Total Bilirubin 0.2 mg/dL Aspartate Amino Transf (AST/SGOT) 24 U/L Alanine Aminotransferase (ALT/SGPT) 30 U/L Alkaline Phosphatase 56 U/L Total Protein 7.1 g/dL Albumin 3.4 g/dL Albumin/Globulin Ratio 0.9 Current Medications Medications (Trade) Dose Ordered Sig/Yakelin Route PRN Reason Start Time Stop Time Status Last Admin Dose Admin Atorvastatin Calcium (Lipitor) 10 mg QHS PO 04/08/21 21:00 04/15/21 21:04 Baclofen (Lioresal) 20 mg TID PO 04/08/21 21:00 04/16/21 12:16 Bupropion HCl (Wellbutrin) 75 mg BID PO 04/08/21 21:00 04/09/21 18:10 DC 04/09/21 09:39 Docusate Sodium (Colace) 100 mg DAILY PO 04/09/21 09:00 04/15/21 08:25 Gabapentin (Neurontin) 300 mg TID PO 04/08/21 21:00 04/16/21 12:16 Acetaminophen/ Hydrocodone Bitart (Lortab 5/325) 1 tab PRN Q6HRS PRN PO PAIN 04/08/21 17:45 04/09/21 15:40 DC 04/09/21 13:18 Metformin HCl (Glucophage) 500 mg BIDWMEALS PO 04/09/21 08:00 04/16/21 16:52 Mirtazapine (Remeron) 30 mg QHS PO 04/08/21 21:00 04/15/21 21:06 Tramadol HCl (Ultram) 50 mg Q8HRS PO 04/08/21 22:00 04/09/21 15:40 DC 04/09/21 13:01 Trazodone HCl (Desyrel) 100 mg QHS PO 04/08/21 21:00 04/15/21 21:04 Ascorbic Acid (Vitamin C) 1,000 mg TID PO 04/08/21 21:00 04/16/21 12:17 Non-Formulary Medication (Beta-Carotene (Beta Carotene)) 25,000 unit DAILY PO 04/09/21 09:00 UNV Vitamin D (Vitamin D3) 50,000 unit QM@0900 PO 04/18/21 09:00 Citalopram Hydrobromide (CeleXA) 40 mg DAILY PO 04/09/21 09:00 04/09/21 18:40 DC 04/09/21 09:40 Polyethylene Glycol (miraLAX) 17 gm DAILY PO 04/09/21 09:00 04/15/21 08:25 Quetiapine Fumarate (SEROquel) 300 mg QHS PO 04/08/21 21:00 04/13/21 03:24 DC 04/12/21 20:55 Non-Formulary Medication (Riluzole ) 50 mg BID PO 04/08/21 21:00 04/11/21 10:42 DC 04/11/21 09:15 Multi-Ingredient Ointment (Analgesic [place]) 1 komal PRN QID PRN TP MUSCLE PAIN 04/08/21 17:45 Al Hydroxide/Mg Hydroxide (Mylanta Plus Xs) 15 ml PRN AFTMEALHC PRN PO DYSPEPSIA 04/08/21 17:45 Magnesium Hydroxide (Milk Of Magnesia) 2,400 mg PRN QHS PRN PO CONSTIPATION 04/08/21 17:45 Acetaminophen (Tylenol) 1,000 mg BID PO 04/08/21 21:00 04/16/21 08:30 Influenza Virus Vaccine Quadrival (Flulaval Quad [id number] Syringe) 0.5 ml ONCE ONCE VAX IM 04/09/21 09:00 04/09/21 09:01 DC 04/09/21 09:43 Citalopram Hydrobromide (CeleXA) 40 mg DAILY PO 04/10/21 09:00 04/09/21 18:40 DC Acetaminophen/ Hydrocodone Bitart (Lortab 5/325) 1 tab Q8HRS PO 04/09/21 15:45 04/16/21 15:10 Nicotine (Nicoderm Cq 14mg Patch) 1 patch PRN DAILY PRN TD SMOKING CESSATION 04/09/21 17:30 Bupropion HCl (Wellbutrin) 150 mg DAILY PO 04/10/21 09:00 04/16/21 08:30 Bupropion HCl (Wellbutrin) 75 mg 1200 PO 04/10/21 12:00 04/13/21 03:24 DC 04/12/21 12:25 Riluzole (Riluzole) 50 mg BID@1000,2200 PO 04/11/21 22:00 04/16/21 08:30 Riluzole (Riluzole) 50 mg STK-MED ONCE .ROUTE 04/09/21 21:00 04/11/21 10:42 DC Riluzole (Riluzole) 50 mg STK-MED ONCE .ROUTE 04/10/21 09:00 04/11/21 10:42 DC Riluzole (Riluzole) 50 mg STK-MED ONCE .ROUTE 04/11/21 09:00 04/11/21 10:42 DC Bupropion HCl (Wellbutrin) 150 mg 1200 PO 04/13/21 12:00 04/16/21 12:16 Quetiapine Fumarate (SEROquel) 250 mg QHS PO 04/13/21 21:00 04/15/21 21:03 Quetiapine Fumarate (SEROquel) 50 mg BID@0900,1500 PO 04/13/21 09:00 04/16/21 15:10 I have reviewed the current psychotropics carefully including drug interactions. Risk benefit ratio favors no change other than as noted in my dictated progress note. Diagnosis: Problems: (1) Amyotrophic lateral sclerosis (2) Anxiety disorder, unspecified (3) Bipolar 1 disorder, depressed (4) Major depressive disorder, recurrent episode, severe DIMITRI GODINEZ MD Apr 16, 2021 21:06
--- NOTE | 2021-04-16 23:04 | NUR ---
Patient is in his room on assumption of care, sitting in his broda chair. Alert and oriented x 4. Repeatedly asking different staff members to put him to bed. Needy, demanding, can be sarcastic in his answers. Cooperative with HS cares. Denies any SI thoughts at present time. No agitation. Patient appears to be sleeping comfortably at present time. Will continue to monitor.
[2021-04-17] MEDS: HYDROcodone/APAP 5/325MG 1 TAB TABLET PO SCH ×3 (04:50→20:33)
[2021-04-17 05:51] VITALS: BP 92/58
--- NOTE | 2021-04-17 07:28 | PDOC ---
Exam Note: Bran Note: This note is a late entry for 04/15/2021 covers elements not covered in my initial note. Subjective: The patient was seen individually in the evening of 04/15/2021 with Mejia MERCADO, discussed and reviewed the chart. The patient slept 6-3/4 hours previous night. Overall the patient remains withdrawn. No suicidal ideation. He is still somewhat depressed. I met with him in his room. Review of Systems: Impaired ambulation due to ALS. He was lying in bed. He does complain of pain. No CV, , pulmonary, eye, ENT system symptoms on review. Mental Status Exam: The patient is reasonably oriented. Speech is coherent has some latency. Abstraction fair. Computation impaired. Language function intact. Mood and affect still depressed but no suicidal ideation and the depression is better. Laboratory Data: Reviewed. Impression: Major depressive disorder, recurrent, severe. Anxiety disorder unspecified. ALS. Plan: Continue rest of the psychotropics unchanged. Assessment: Vital Signs/I&O: Vital Signs Date Time Temp Pulse Resp B/P (MAP) Pulse Ox O2 Delivery O2 Flow Rate FiO2 04/17/21 05:56 18 Room Air 04/17/21 05:51 97.6 62 92/58 (69) 98 04/15/21 06:12 2.0 I & O 04/16/21 04/16/21 04/17/21 15:00 23:00 07:00 Intake Total 360 ml 480 ml Balance 360 ml 480 ml Labs: Laboratory Tests Test 04/16/21 13:00 White Blood Count 8.4 x10^3/uL (4.0-11.0) Red Blood Count 3.37 x10^6/uL (4.30-5.70) L Hemoglobin 8.8 g/dL (13.0-17.5) L Hematocrit 28.4 % (39.0-53.0) L Mean Corpuscular Volume 84 fL (79-100) Mean Corpuscular Hemoglobin 26 pg (25-35) Mean Corpuscular Hemoglobin Concent 31 g/dL (31-37) Red Cell Distribution Width 19.5 % (11.5-14.5) H Platelet Count 246 x10^3/uL (140-400) Neutrophils (%) (Auto) 61 % (31-73) Lymphocytes (%) (Auto) 29 % (24-48) Monocytes (%) (Auto) 6 % (0-9) Eosinophils (%) (Auto) 3 % (0-3) Basophils (%) (Auto) 1 % (0-3) Neutrophils # (Auto) 5.2 x10^3uL (1.8-7.7) Lymphocytes # (Auto) 2.5 x10^3/uL (1.0-4.8) Monocytes # (Auto) 0.5 x10^3/uL (0.0-1.1) Eosinophils # (Auto) 0.2 x10^3/uL (0.0-0.7) Basophils # (Auto) 0.1 x10^3/uL (0.0-0.2) Sodium Level 139 mmol/L (136-145) Potassium Level 4.3 mmol/L (3.5-5.1) Chloride Level 103 mmol/L (98-107) Carbon Dioxide Level 27 mmol/L (21-32) Anion Gap 9 (6-14) Blood Urea Nitrogen 18 mg/dL (8-26) Creatinine 0.6 mg/dL (0.7-1.3) L Estimated GFR (Cockcroft-Gault) 133.2 BUN/Creatinine Ratio 30 (6-20) H Glucose Level 123 mg/dL (70-99) H Calcium Level 9.1 mg/dL (8.5-10.1) Total Bilirubin 0.2 mg/dL (0.2-1.0) Aspartate Amino Transferase (AST) 24 U/L (15-37) Alanine Aminotransferase (ALT) 30 U/L (16-63) Alkaline Phosphatase 56 U/L (46-116) Total Protein 7.1 g/dL (6.4-8.2) Albumin 3.4 g/dL (3.4-5.0) Albumin/Globulin Ratio 0.9 (1.0-1.7) L Current Medications: Meds: Laboratory Tests Test 04/16/21 13:00 White Blood Count 8.4 x10^3/uL Red Blood Count 3.37 x10^6/uL Hemoglobin 8.8 g/dL Hematocrit 28.4 % Mean Corpuscular Volume 84 fL Mean Corpuscular Hemoglobin 26 pg Mean Corpuscular Hemoglobin Concent 31 g/dL Red Cell Distribution Width 19.5 % Platelet Count 246 x10^3/uL Neutrophils (%) (Auto) 61 % Lymphocytes (%) (Auto) 29 % Monocytes (%) (Auto) 6 % Eosinophils (%) (Auto) 3 % Basophils (%) (Auto) 1 % Neutrophils # (Auto) 5.2 x10^3uL Lymphocytes # (Auto) 2.5 x10^3/uL Monocytes # (Auto) 0.5 x10^3/uL Eosinophils # (Auto) 0.2 x10^3/uL Basophils # (Auto) 0.1 x10^3/uL Sodium Level 139 mmol/L Potassium Level 4.3 mmol/L Chloride Level 103 mmol/L Carbon Dioxide Level 27 mmol/L Anion Gap 9 Blood Urea Nitrogen 18 mg/dL Creatinine 0.6 mg/dL Estimated GFR (Cockcroft-Gault) 133.2 BUN/Creatinine Ratio 30 Glucose Level 123 mg/dL Calcium Level 9.1 mg/dL Total Bilirubin 0.2 mg/dL Aspartate Amino Transf (AST/SGOT) 24 U/L Alanine Aminotransferase (ALT/SGPT) 30 U/L Alkaline Phosphatase 56 U/L Total Protein 7.1 g/dL Albumin 3.4 g/dL Albumin/Globulin Ratio 0.9 Current Medications Medications (Trade) Dose Ordered Sig/Yakelin Route PRN Reason Start Time Stop Time Status Last Admin Dose Admin Atorvastatin Calcium (Lipitor) 10 mg QHS PO 04/08/21 21:00 04/16/21 20:59 Baclofen (Lioresal) 20 mg TID PO 04/08/21 21:00 04/16/21 21:00 Bupropion HCl (Wellbutrin) 75 mg BID PO 04/08/21 21:00 04/09/21 18:10 DC 04/09/21 09:39 Docusate Sodium (Colace) 100 mg DAILY PO 04/09/21 09:00 04/15/21 08:25 Gabapentin (Neurontin) 300 mg TID PO 04/08/21 21:00 04/16/21 21:06 Acetaminophen/ Hydrocodone Bitart (Lortab 5/325) 1 tab PRN Q6HRS PRN PO PAIN 04/08/21 17:45 04/09/21 15:40 DC 04/09/21 13:18 Metformin HCl (Glucophage) 500 mg BIDWMEALS PO 04/09/21 08:00 04/16/21 16:52 Mirtazapine (Remeron) 30 mg QHS PO 04/08/21 21:00 04/16/21 21:00 Tramadol HCl (Ultram) 50 mg Q8HRS PO 04/08/21 22:00 04/09/21 15:40 DC 04/09/21 13:01 Trazodone HCl (Desyrel) 100 mg QHS PO 04/08/21 21:00 04/16/21 20:58 Ascorbic Acid (Vitamin C) 1,000 mg TID PO 04/08/21 21:00 04/16/21 21:00 Non-Formulary Medication (Beta-Carotene (Beta Carotene)) 25,000 unit DAILY PO 04/09/21 09:00 UNV Vitamin D (Vitamin D3) 50,000 unit QM@0900 PO 04/18/21 09:00 Citalopram Hydrobromide (CeleXA) 40 mg DAILY PO 04/09/21 09:00 04/09/21 18:40 DC 04/09/21 09:40 Polyethylene Glycol (miraLAX) 17 gm DAILY PO 04/09/21 09:00 04/15/21 08:25 Quetiapine Fumarate (SEROquel) 300 mg QHS PO 04/08/21 21:00 04/13/21 03:24 DC 04/12/21 20:55 Non-Formulary Medication (Riluzole ) 50 mg BID PO 04/08/21 21:00 04/11/21 10:42 DC 04/11/21 09:15 Multi-Ingredient Ointment (Analgesic [place]) 1 komal PRN QID PRN TP MUSCLE PAIN 04/08/21 17:45 Al Hydroxide/Mg Hydroxide (Mylanta Plus Xs) 15 ml PRN AFTMEALHC PRN PO DYSPEPSIA 04/08/21 17:45 Magnesium Hydroxide (Milk Of Magnesia) 2,400 mg PRN QHS PRN PO CONSTIPATION 04/08/21 17:45 Acetaminophen (Tylenol) 1,000 mg BID PO 04/08/21 21:00 04/16/21 21:08 Influenza Virus Vaccine Quadrival (Flulaval Quad [id number] Syringe) 0.5 ml ONCE ONCE VAX IM 04/09/21 09:00 04/09/21 09:01 DC 04/09/21 09:43 Citalopram Hydrobromide (CeleXA) 40 mg DAILY PO 04/10/21 09:00 04/09/21 18:40 DC Acetaminophen/ Hydrocodone Bitart (Lortab 5/325) 1 tab Q8HRS PO 04/09/21 15:45 04/17/21 04:50 Nicotine (Nicoderm Cq 14mg Patch) 1 patch PRN DAILY PRN TD SMOKING CESSATION 04/09/21 17:30 Bupropion HCl (Wellbutrin) 150 mg DAILY PO 04/10/21 09:00 04/16/21 08:30 Bupropion HCl (Wellbutrin) 75 mg 1200 PO 04/10/21 12:00 04/13/21 03:24 DC 04/12/21 12:25 Riluzole (Riluzole) 50 mg BID@1000,2200 PO 04/11/21 22:00 04/16/21 21:09 Riluzole (Riluzole) 50 mg STK-MED ONCE .ROUTE 04/09/21 21:00 04/11/21 10:42 DC Riluzole (Riluzole) 50 mg STK-MED ONCE .ROUTE 04/10/21 09:00 04/11/21 10:42 DC Riluzole (Riluzole) 50 mg STK-MED ONCE .ROUTE 04/11/21 09:00 04/11/21 10:42 DC Bupropion HCl (Wellbutrin) 150 mg 1200 PO 04/13/21 12:00 04/16/21 12:16 Quetiapine Fumarate (SEROquel) 250 mg QHS PO 04/13/21 21:00 04/16/21 20:59 Quetiapine Fumarate (SEROquel) 50 mg BID@0900,1500 PO 04/13/21 09:00 04/16/21 15:10 I have reviewed the current psychotropics carefully including drug interactions. Risk benefit ratio favors no change other than as noted in my dictated progress note. Diagnosis: Problems: (1) Amyotrophic lateral sclerosis (2) Anxiety disorder, unspecified (3) Bipolar 1 disorder, depressed (4) Major depressive disorder, recurrent episode, severe HERBERT,DIMITRI Coronado MD Apr 17, 2021 07:28
[2021-04-17] MEDS: RILUZOLE 50 MG PO SCH ×2 (10:04→20:33)
[2021-04-17] MEDS: buPROPion 75 MG TABLET PO SCH ×2 (10:04→13:18)
[2021-04-17] MEDS: POLYETHYLENE GLYCOL 3350 17 GM PACKET. PO SCH (10:04)
[2021-04-17] MEDS: ACETAMINOPHEN 500 MG TABLET PO SCH ×2 (10:05→20:35)
[2021-04-17] MEDS: GABAPENTIN 300 MG CAPSULE. PO SCH ×3 (10:05→20:34)
[2021-04-17] MEDS: BACLOFEN 20 MG TABLET PO SCH ×3 (10:05→20:34)
[2021-04-17] MEDS: metFORMIN 500 MG TABLET PO SCH ×2 (10:05→17:43)
[2021-04-17] MEDS: ASCORBIC ACID 500 MG TABLET PO SCH ×3 (10:05→20:34)
[2021-04-17] MEDS: DOCUSATE SODIUM 100 MG CAPSULE PO SCH (10:05)
[2021-04-17] MEDS: QUEtiapine 50 MG TABLET. PO SCH ×2 (10:05→15:13)
--- NOTE | 2021-04-17 15:18 | NUR ---
Nursing note: Patient is in his room for morning medication & assessment. He is compliant with medications taken whole. He is alert and oriented x 4, can be needy, demanding, as well as some sarcasm when he answers. He stayed in bed through the day, stated he will get up for dinner and the football game this evening. He denies any SI at this time. Patient requires lift assist, feeding assistance, and uses a broda chair when not in bed. He is currently laying awake in bed. Will continue to monitor.
[2021-04-17 16:01] VITALS: BP_SYST 100; BP_SYST 106; BP_DIAS 62; BP_DIAS 72
[2021-04-17] MEDS: QUEtiapine 100 MG TABLET. PO SCH (20:32)
[2021-04-17] MEDS: ATORVASTATIN CALCIUM 10 MG TABLET. PO SCH (20:32)
[2021-04-17] MEDS: MIRTAZAPINE 30 MG TABLET PO SCH (20:33)
[2021-04-17] MEDS: traZODone 100 MG TABLET. PO SCH (20:34)
--- NOTE | 2021-04-17 20:59 | PDOC ---
Exam Note: Bran Note: Please also refer to the separate dictated note~for this date of service dictated separately.~Patient seen individually. Discussed the patient with Nursing staff reviewed the chart.~Reviewed interim history and current functioning. Reviewed vital signs,~Labs/ Radiology~and current medications noted below. Continue current treatment with the changes noted in the dictated addendum note Assessment: Vital Signs/I&O: Vital Signs Date Time Temp Pulse Resp B/P (MAP) Pulse Ox O2 Delivery O2 Flow Rate FiO2 04/17/21 20:55 93 04/17/21 16:01 97.1 80 20 106/72 (83) Room Air I & O 04/16/21 04/16/21 04/17/21 15:00 23:00 07:00 Intake Total 360 ml 480 ml Balance 360 ml 480 ml Current Medications: Meds: Current Medications Medications (Trade) Dose Ordered Sig/Yakelin Route PRN Reason Start Time Stop Time Status Last Admin Dose Admin Atorvastatin Calcium (Lipitor) 10 mg QHS PO 04/08/21 21:00 04/17/21 20:32 Baclofen (Lioresal) 20 mg TID PO 04/08/21 21:00 04/17/21 20:34 Bupropion HCl (Wellbutrin) 75 mg BID PO 04/08/21 21:00 04/09/21 18:10 DC 04/09/21 09:39 Docusate Sodium (Colace) 100 mg DAILY PO 04/09/21 09:00 04/17/21 10:05 Gabapentin (Neurontin) 300 mg TID PO 04/08/21 21:00 04/17/21 20:34 Acetaminophen/ Hydrocodone Bitart (Lortab 5/325) 1 tab PRN Q6HRS PRN PO PAIN 04/08/21 17:45 04/09/21 15:40 DC 04/09/21 13:18 Metformin HCl (Glucophage) 500 mg BIDWMEALS PO 04/09/21 08:00 04/17/21 17:43 Mirtazapine (Remeron) 30 mg QHS PO 04/08/21 21:00 04/17/21 20:33 Tramadol HCl (Ultram) 50 mg Q8HRS PO 04/08/21 22:00 04/09/21 15:40 DC 04/09/21 13:01 Trazodone HCl (Desyrel) 100 mg QHS PO 04/08/21 21:00 04/17/21 20:34 Ascorbic Acid (Vitamin C) 1,000 mg TID PO 04/08/21 21:00 04/17/21 20:34 Non-Formulary Medication (Beta-Carotene (Beta Carotene)) 25,000 unit DAILY PO 04/09/21 09:00 UNV Vitamin D (Vitamin D3) 50,000 unit QM@0900 PO 04/18/21 09:00 Citalopram Hydrobromide (CeleXA) 40 mg DAILY PO 04/09/21 09:00 04/09/21 18:40 DC 04/09/21 09:40 Polyethylene Glycol (miraLAX) 17 gm DAILY PO 04/09/21 09:00 04/17/21 10:04 Quetiapine Fumarate (SEROquel) 300 mg QHS PO 04/08/21 21:00 04/13/21 03:24 DC 04/12/21 20:55 Non-Formulary Medication (Riluzole ) 50 mg BID PO 04/08/21 21:00 04/11/21 10:42 DC 04/11/21 09:15 Multi-Ingredient Ointment (Analgesic [place]) 1 komal PRN QID PRN TP MUSCLE PAIN 04/08/21 17:45 Al Hydroxide/Mg Hydroxide (Mylanta Plus Xs) 15 ml PRN AFTMEALHC PRN PO DYSPEPSIA 04/08/21 17:45 Magnesium Hydroxide (Milk Of Magnesia) 2,400 mg PRN QHS PRN PO CONSTIPATION 04/08/21 17:45 Acetaminophen (Tylenol) 1,000 mg BID PO 04/08/21 21:00 04/17/21 20:35 Influenza Virus Vaccine Quadrival (Flulaval Quad [id number] Syringe) 0.5 ml ONCE ONCE VAX IM 04/09/21 09:00 04/09/21 09:01 DC 04/09/21 09:43 Citalopram Hydrobromide (CeleXA) 40 mg DAILY PO 04/10/21 09:00 04/09/21 18:40 DC Acetaminophen/ Hydrocodone Bitart (Lortab 5/325) 1 tab Q8HRS PO 04/09/21 15:45 04/17/21 20:33 Nicotine (Nicoderm Cq 14mg Patch) 1 patch PRN DAILY PRN TD SMOKING CESSATION 04/09/21 17:30 Bupropion HCl (Wellbutrin) 150 mg DAILY PO 04/10/21 09:00 04/17/21 10:04 Bupropion HCl (Wellbutrin) 75 mg 1200 PO 04/10/21 12:00 04/13/21 03:24 DC 04/12/21 12:25 Riluzole (Riluzole) 50 mg BID@1000,2200 PO 04/11/21 22:00 04/17/21 20:33 Riluzole (Riluzole) 50 mg STK-MED ONCE .ROUTE 04/09/21 21:00 04/11/21 10:42 DC Riluzole (Riluzole) 50 mg STK-MED ONCE .ROUTE 04/10/21 09:00 04/11/21 10:42 DC Riluzole (Riluzole) 50 mg STK-MED ONCE .ROUTE 04/11/21 09:00 04/11/21 10:42 DC Bupropion HCl (Wellbutrin) 150 mg 1200 PO 04/13/21 12:00 04/17/21 13:18 Quetiapine Fumarate (SEROquel) 250 mg QHS PO 04/13/21 21:00 04/17/21 20:32 Quetiapine Fumarate (SEROquel) 50 mg BID@0900,1500 PO 04/13/21 09:00 04/17/21 15:13 I have reviewed the current psychotropics carefully including drug interactions. Risk benefit ratio favors no change other than as noted in my dictated progress note. Diagnosis: Problems: (1) Amyotrophic lateral sclerosis (2) Anxiety disorder, unspecified (3) Bipolar 1 disorder, depressed (4) Major depressive disorder, recurrent episode, severe HERBERTDIMITRI MD Apr 17, 2021 20:59
[2021-04-18] MEDS: HYDROcodone/APAP 5/325MG 1 TAB TABLET PO SCH ×3 (05:26→20:08)
[2021-04-18 05:39] VITALS: BP 165/68
[2021-04-18] MEDS: RILUZOLE 50 MG PO SCH ×2 (08:35→20:08)
[2021-04-18] MEDS: POLYETHYLENE GLYCOL 3350 17 GM PACKET. PO SCH (08:35)
[2021-04-18] MEDS: buPROPion 75 MG TABLET PO SCH ×2 (08:35→12:22)
[2021-04-18] MEDS: ACETAMINOPHEN 500 MG TABLET PO SCH ×2 (08:36→20:09)
[2021-04-18] MEDS: DOCUSATE SODIUM 100 MG CAPSULE PO SCH (08:36)
[2021-04-18] MEDS: QUEtiapine 50 MG TABLET. PO SCH ×2 (08:36→13:49)
[2021-04-18] MEDS: ASCORBIC ACID 500 MG TABLET PO SCH ×3 (08:36→20:09)
[2021-04-18] MEDS: GABAPENTIN 300 MG CAPSULE. PO SCH ×3 (08:36→20:08)
[2021-04-18] MEDS: BACLOFEN 20 MG TABLET PO SCH ×3 (08:36→20:09)
[2021-04-18] MEDS: metFORMIN 500 MG TABLET PO SCH ×2 (08:36→17:20)
[2021-04-18] MEDS ORDERED: CHOLECALCIFEROL (VITAMIN D3) 50,000 UNIT CAPSULE PO SCH (09:00)
--- NOTE | 2021-04-18 12:47 | NUR ---
WEEKLY ACTIVITY THERAPY NOTE Date of Admission:04/08/21 Date of AT Assessment: 04/11 Precipitating behaviors that initiated intake and admission:suicidal statements sec recent diagnosis of ALS Goal aimed: increase socialization and motivation Initial Goal: Pt will participate in at least three Activity Therapy sessions before discharge Weekly progress towards goal: on track (04/14- day history/songs and videos, 04/15-1:1:tv time and social hour) Group participation level: 2 full Weekly highlights: told stories about his father serving in the during [employer] day group afternoon, watched tv and socialized Sunday, moved to group therapy side Behaviors observed: sociable, motivated for group activities Plan: no change to goal Beneficial adaptations:
--- NOTE | 2021-04-18 14:18 | NUR ---
Nursing note: Patient is in dinning room for morning medication & assessment. He is compliant with medications taken whole. He is alert and oriented x 4, can be needy, demanding, irritable, as well as some sarcasm when he answers. He was agitated this am r/t not wanting to get up. He denies any SI at this time. Patient requires lift assist, feeding assistance, and uses a broda chair when not in bed. He is currently laying awake in bed talking on the phone. Will continue to monitor.
[2021-04-18 15:26] VITALS: BP 118/71
[2021-04-18] MEDS: traZODone 100 MG TABLET. PO SCH (20:08)
[2021-04-18] MEDS: MIRTAZAPINE 30 MG TABLET PO SCH (20:08)
[2021-04-18] MEDS: ATORVASTATIN CALCIUM 10 MG TABLET. PO SCH (20:09)
[2021-04-18] MEDS: QUEtiapine 100 MG TABLET. PO SCH (20:10)
--- NOTE | 2021-04-18 21:57 | NUR ---
Patient was irritable and upset tonight. He stated he "never gets to go to bed when he wants to". Cooperative with assessment and medication compliant. Patient took medications a few at a time, given by nurse with a spoon and nurse also assisted by holding drink for patient. Rolled wash clothes placed in patients hands (they are contracted) and he reports that they hurt, as well as his left shoulder. Scheduled pain medications given, although patient reports that he continues to have pain.
--- NOTE | 2021-04-18 22:07 | PDOC ---
Exam Note: Bran Note: This note is a late entry for 04/16/2021 covers elements not covered in my initial note. Subjective: The patient was seen individually in the evening of 04/16/2021 with Nga MERCADO, discussed and reviewed the chart. The patient slept 8-3/4 hours previous night. The patient often wants to get back to bed. Review of Systems: No CV, , pulmonary, eye, ENT system symptoms on review. Gait unsteady, in wheelchair. Mental Status Exam: The patient is reasonably oriented. Speech is coherent has some latency. Abstraction fair. Computation impaired. Language function intact. Mood and affect withdrawn. Laboratory Data: Reviewed. Impression: Major depressive disorder, recurrent, severe. Anxiety disorder unspecified. ALS. Plan: Continue rest of the psychotropics unchanged. Assessment: Vital Signs/I&O: Vital Signs Date Time Temp Pulse Resp B/P (MAP) Pulse Ox O2 Delivery O2 Flow Rate FiO2 04/18/21 15:26 98.5 95 18 118/71 (87) 93 04/18/21 05:39 2.0 04/17/21 16:01 Room Air I & O 04/17/21 04/17/21 04/18/21 15:00 23:00 07:00 Intake Total 140 ml 240 ml 100 ml Balance 140 ml 240 ml 100 ml Current Medications: Meds: Current Medications Medications (Trade) Dose Ordered Sig/Yakelin Route PRN Reason Start Time Stop Time Status Last Admin Dose Admin Atorvastatin Calcium (Lipitor) 10 mg QHS PO 04/08/21 21:00 04/18/21 20:09 Baclofen (Lioresal) 20 mg TID PO 04/08/21 21:00 04/18/21 20:09 Bupropion HCl (Wellbutrin) 75 mg BID PO 04/08/21 21:00 04/09/21 18:10 DC 04/09/21 09:39 Docusate Sodium (Colace) 100 mg DAILY PO 04/09/21 09:00 04/18/21 08:36 Gabapentin (Neurontin) 300 mg TID PO 04/08/21 21:00 04/18/21 20:08 Acetaminophen/ Hydrocodone Bitart (Lortab 5/325) 1 tab PRN Q6HRS PRN PO PAIN 04/08/21 17:45 04/09/21 15:40 DC 04/09/21 13:18 Metformin HCl (Glucophage) 500 mg BIDWMEALS PO 04/09/21 08:00 04/18/21 17:20 Mirtazapine (Remeron) 30 mg QHS PO 04/08/21 21:00 04/18/21 20:08 Tramadol HCl (Ultram) 50 mg Q8HRS PO 04/08/21 22:00 04/09/21 15:40 DC 04/09/21 13:01 Trazodone HCl (Desyrel) 100 mg QHS PO 04/08/21 21:00 04/18/21 20:08 Ascorbic Acid (Vitamin C) 1,000 mg TID PO 04/08/21 21:00 04/18/21 20:09 Non-Formulary Medication (Beta-Carotene (Beta Carotene)) 25,000 unit DAILY PO 04/09/21 09:00 UNV Vitamin D (Vitamin D3) 50,000 unit QM@0900 PO 04/18/21 09:00 04/18/21 08:35 Citalopram Hydrobromide (CeleXA) 40 mg DAILY PO 04/09/21 09:00 04/09/21 18:40 DC 04/09/21 09:40 Polyethylene Glycol (miraLAX) 17 gm DAILY PO 04/09/21 09:00 04/18/21 08:35 Quetiapine Fumarate (SEROquel) 300 mg QHS PO 04/08/21 21:00 04/13/21 03:24 DC 04/12/21 20:55 Non-Formulary Medication (Riluzole ) 50 mg BID PO 04/08/21 21:00 04/11/21 10:42 DC 04/11/21 09:15 Multi-Ingredient Ointment (Analgesic [place]) 1 komal PRN QID PRN TP MUSCLE PAIN 04/08/21 17:45 Al Hydroxide/Mg Hydroxide (Mylanta Plus Xs) 15 ml PRN AFTMEALHC PRN PO DYSPEPSIA 04/08/21 17:45 Magnesium Hydroxide (Milk Of Magnesia) 2,400 mg PRN QHS PRN PO CONSTIPATION 04/08/21 17:45 Acetaminophen (Tylenol) 1,000 mg BID PO 04/08/21 21:00 04/18/21 20:09 Influenza Virus Vaccine Quadrival (Flulaval Quad [id number] Syringe) 0.5 ml ONCE ONCE VAX IM 04/09/21 09:00 04/09/21 09:01 DC 04/09/21 09:43 Citalopram Hydrobromide (CeleXA) 40 mg DAILY PO 04/10/21 09:00 04/09/21 18:40 DC Acetaminophen/ Hydrocodone Bitart (Lortab 5/325) 1 tab Q8HRS PO 04/09/21 15:45 04/18/21 20:08 Nicotine (Nicoderm Cq 14mg Patch) 1 patch PRN DAILY PRN TD SMOKING CESSATION 04/09/21 17:30 Bupropion HCl (Wellbutrin) 150 mg DAILY PO 04/10/21 09:00 04/18/21 08:35 Bupropion HCl (Wellbutrin) 75 mg 1200 PO 04/10/21 12:00 04/13/21 03:24 DC 04/12/21 12:25 Riluzole (Riluzole) 50 mg BID@1000,2200 PO 04/11/21 22:00 04/18/21 20:08 Riluzole (Riluzole) 50 mg STK-MED ONCE .ROUTE 04/09/21 21:00 04/11/21 10:42 DC Riluzole (Riluzole) 50 mg STK-MED ONCE .ROUTE 04/10/21 09:00 04/11/21 10:42 DC Riluzole (Riluzole) 50 mg STK-MED ONCE .ROUTE 04/11/21 09:00 04/11/21 10:42 DC Bupropion HCl (Wellbutrin) 150 mg 1200 PO 04/13/21 12:00 04/18/21 12:22 Quetiapine Fumarate (SEROquel) 250 mg QHS PO 04/13/21 21:00 04/18/21 20:10 Quetiapine Fumarate (SEROquel) 50 mg BID@0900,1500 PO 04/13/21 09:00 04/18/21 13:49 Current Medications Medications (Trade) Dose Ordered Sig/Yakelin Route PRN Reason Start Time Stop Time Status Last Admin Dose Admin Vitamin D (Vitamin D3) 50,000 unit QM@0900 PO 04/18/21 09:00 11/15/21 08:35 I have reviewed the current psychotropics carefully including drug interactions. Risk benefit ratio favors no change other than as noted in my dictated progress note. Diagnosis: Problems: (1) Amyotrophic lateral sclerosis (2) Anxiety disorder, unspecified (3) Bipolar 1 disorder, depressed (4) Major depressive disorder, recurrent episode, severe DIMITRI GODINEZ MD Apr 18, 2021 22:07
--- NOTE | 2021-04-18 22:40 | PDOC ---
Exam Note: Bran Note: This note is a late entry for 04/17/2021 covers elements not covered in my initial note. Subjective: The patient was seen individually in the evening of 04/17/2021 with Nga MERCADO, discussed and reviewed the chart. The patient slept 6-3/4 hours previous night. Patient has been moved to the other hallway, post Covid restrictions. He remains withdrawn, wanting to watch the football game but there is not enough staff to coordinate this and I discussed this with nursing staff. He has been isolating in his room, frequently wants to be back in bed. Review of Systems: Ambulation impaired in Broda chair. No CV, , pulmonary, eye, ENT system symptoms on review. Mental Status Exam: The patient is reasonably oriented. Speech is coherent has some latency. Abstraction fair. Computation impaired. Mood and affect depressed. No suicidal ideation. Laboratory Data: Reviewed. Impression: Major depressive disorder, recurrent, severe. Anxiety disorder unspecified. ALS. Plan: Continue rest of the psychotropics unchanged Assessment: Vital Signs/I&O: Vital Signs Date Time Temp Pulse Resp B/P (MAP) Pulse Ox O2 Delivery O2 Flow Rate FiO2 04/18/21 15:26 98.5 95 18 118/71 (87) 93 04/18/21 05:39 2.0 04/17/21 16:01 Room Air I & O 04/17/21 04/17/21 04/18/21 15:00 23:00 07:00 Intake Total 140 ml 240 ml 100 ml Balance 140 ml 240 ml 100 ml Current Medications: Meds: Current Medications Medications (Trade) Dose Ordered Sig/Yakelin Route PRN Reason Start Time Stop Time Status Last Admin Dose Admin Atorvastatin Calcium (Lipitor) 10 mg QHS PO 04/08/21 21:00 04/18/21 20:09 Baclofen (Lioresal) 20 mg TID PO 04/08/21 21:00 04/18/21 20:09 Bupropion HCl (Wellbutrin) 75 mg BID PO 04/08/21 21:00 04/09/21 18:10 DC 04/09/21 09:39 Docusate Sodium (Colace) 100 mg DAILY PO 04/09/21 09:00 04/18/21 08:36 Gabapentin (Neurontin) 300 mg TID PO 04/08/21 21:00 04/18/21 20:08 Acetaminophen/ Hydrocodone Bitart (Lortab 5/325) 1 tab PRN Q6HRS PRN PO PAIN 04/08/21 17:45 04/09/21 15:40 DC 04/09/21 13:18 Metformin HCl (Glucophage) 500 mg BIDWMEALS PO 04/09/21 08:00 04/18/21 17:20 Mirtazapine (Remeron) 30 mg QHS PO 04/08/21 21:00 04/18/21 20:08 Tramadol HCl (Ultram) 50 mg Q8HRS PO 04/08/21 22:00 04/09/21 15:40 DC 04/09/21 13:01 Trazodone HCl (Desyrel) 100 mg QHS PO 04/08/21 21:00 04/18/21 20:08 Ascorbic Acid (Vitamin C) 1,000 mg TID PO 04/08/21 21:00 04/18/21 20:09 Non-Formulary Medication (Beta-Carotene (Beta Carotene)) 25,000 unit DAILY PO 04/09/21 09:00 UNV Vitamin D (Vitamin D3) 50,000 unit QM@0900 PO 04/18/21 09:00 04/18/21 08:35 Citalopram Hydrobromide (CeleXA) 40 mg DAILY PO 04/09/21 09:00 04/09/21 18:40 DC 04/09/21 09:40 Polyethylene Glycol (miraLAX) 17 gm DAILY PO 04/09/21 09:00 04/18/21 08:35 Quetiapine Fumarate (SEROquel) 300 mg QHS PO 04/08/21 21:00 04/13/21 03:24 DC 04/12/21 20:55 Non-Formulary Medication (Riluzole ) 50 mg BID PO 04/08/21 21:00 04/11/21 10:42 DC 04/11/21 09:15 Multi-Ingredient Ointment (Analgesic [place]) 1 komal PRN QID PRN TP MUSCLE PAIN 04/08/21 17:45 Al Hydroxide/Mg Hydroxide (Mylanta Plus Xs) 15 ml PRN AFTMEALHC PRN PO DYSPEPSIA 04/08/21 17:45 Magnesium Hydroxide (Milk Of Magnesia) 2,400 mg PRN QHS PRN PO CONSTIPATION 04/08/21 17:45 Acetaminophen (Tylenol) 1,000 mg BID PO 04/08/21 21:00 04/18/21 20:09 Influenza Virus Vaccine Quadrival (Flulaval Quad [id number] Syringe) 0.5 ml ONCE ONCE VAX IM 04/09/21 09:00 04/09/21 09:01 DC 04/09/21 09:43 Citalopram Hydrobromide (CeleXA) 40 mg DAILY PO 04/10/21 09:00 04/09/21 18:40 DC Acetaminophen/ Hydrocodone Bitart (Lortab 5/325) 1 tab Q8HRS PO 04/09/21 15:45 04/18/21 20:08 Nicotine (Nicoderm Cq 14mg Patch) 1 patch PRN DAILY PRN TD SMOKING CESSATION 04/09/21 17:30 Bupropion HCl (Wellbutrin) 150 mg DAILY PO 04/10/21 09:00 04/18/21 08:35 Bupropion HCl (Wellbutrin) 75 mg 1200 PO 04/10/21 12:00 04/13/21 03:24 DC 04/12/21 12:25 Riluzole (Riluzole) 50 mg BID@1000,2200 PO 04/11/21 22:00 04/18/21 20:08 Riluzole (Riluzole) 50 mg STK-MED ONCE .ROUTE 04/09/21 21:00 04/11/21 10:42 DC Riluzole (Riluzole) 50 mg STK-MED ONCE .ROUTE 04/10/21 09:00 04/11/21 10:42 DC Riluzole (Riluzole) 50 mg STK-MED ONCE .ROUTE 04/11/21 09:00 04/11/21 10:42 DC Bupropion HCl (Wellbutrin) 150 mg 1200 PO 04/13/21 12:00 04/18/21 12:22 Quetiapine Fumarate (SEROquel) 250 mg QHS PO 04/13/21 21:00 04/18/21 20:10 Quetiapine Fumarate (SEROquel) 50 mg BID@0900,1500 PO 04/13/21 09:00 04/18/21 13:49 Current Medications Medications (Trade) Dose Ordered Sig/Yakelin Route PRN Reason Start Time Stop Time Status Last Admin Dose Admin Vitamin D (Vitamin D3) 50,000 unit QM@0900 PO 04/18/21 09:00 04/18/21 08:35 I have reviewed the current psychotropics carefully including drug interactions. Risk benefit ratio favors no change other than as noted in my dictated progress note. Diagnosis: Problems: (1) Amyotrophic lateral sclerosis (2) Anxiety disorder, unspecified (3) Bipolar 1 disorder, depressed (4) Major depressive disorder, recurrent episode, severe DIMITRI GODINEZ MD Apr 18, 2021 22:40
--- NOTE | 2021-04-18 22:40 | PDOC ---
Exam Note: Bran Note: Please also refer to the separate dictated note~for this date of service dictated separately.~Patient seen individually. Discussed the patient with Nursing staff reviewed the chart.~Reviewed interim history and current functioning. Reviewed vital signs,~Labs/ Radiology~and current medications noted below. Continue current treatment with the changes noted in the dictated addendum note Assessment: Vital Signs/I&O: Vital Signs Date Time Temp Pulse Resp B/P (MAP) Pulse Ox O2 Delivery O2 Flow Rate FiO2 04/18/21 15:26 98.5 95 18 118/71 (87) 93 04/18/21 05:39 2.0 04/17/21 16:01 Room Air I & O 0 04/17/21 04/17/21 04/18/21 15:00 23:00 07:00 Intake Total 140 ml 240 ml 100 ml Balance 140 ml 240 ml 100 ml Current Medications: Meds: Current Medications Medications (Trade) Dose Ordered Sig/Yakelin Route PRN Reason Start Time Stop Time Status Last Admin Dose Admin Atorvastatin Calcium (Lipitor) 10 mg QHS PO 04/08/21 21:00 04/18/21 20:09 Baclofen (Lioresal) 20 mg TID PO 04/08/21 21:00 04/18/21 20:09 Bupropion HCl (Wellbutrin) 75 mg BID PO 04/08/21 21:00 04/09/21 18:10 DC 04/09/21 09:39 Docusate Sodium (Colace) 100 mg DAILY PO 04/09/21 09:00 04/18/21 08:36 Gabapentin (Neurontin) 300 mg TID PO 04/08/21 21:00 04/18/21 20:08 Acetaminophen/ Hydrocodone Bitart (Lortab 5/325) 1 tab PRN Q6HRS PRN PO PAIN 04/08/21 17:45 04/09/21 15:40 DC 04/09/21 13:18 Metformin HCl (Glucophage) 500 mg BIDWMEALS PO 04/09/21 08:00 04/18/21 17:20 Mirtazapine (Remeron) 30 mg QHS PO 04/08/21 21:00 04/18/21 20:08 Tramadol HCl (Ultram) 50 mg Q8HRS PO 04/08/21 22:00 04/09/21 15:40 DC 04/09/21 13:01 Trazodone HCl (Desyrel) 100 mg QHS PO 04/08/21 21:00 04/18/21 20:08 Ascorbic Acid (Vitamin C) 1,000 mg TID PO 04/08/21 21:00 04/18/21 20:09 Non-Formulary Medication (Beta-Carotene (Beta Carotene)) 25,000 unit DAILY PO 04/09/21 09:00 UNV Vitamin D (Vitamin D3) 50,000 unit QM@0900 PO 04/18/21 09:00 04/18/21 08:35 Citalopram Hydrobromide (CeleXA) 40 mg DAILY PO 04/09/21 09:00 04/09/21 18:40 DC 04/09/21 09:40 Polyethylene Glycol (miraLAX) 17 gm DAILY PO 04/09/21 09:00 04/18/21 08:35 Quetiapine Fumarate (SEROquel) 300 mg QHS PO 04/08/21 21:00 04/13/21 03:24 DC 04/12/21 20:55 Non-Formulary Medication (Riluzole ) 50 mg BID PO 04/08/21 21:00 04/11/21 10:42 DC 04/11/21 09:15 Multi-Ingredient Ointment (Analgesic [place]) 1 komal PRN QID PRN TP MUSCLE PAIN 04/08/21 17:45 Al Hydroxide/Mg Hydroxide (Mylanta Plus Xs) 15 ml PRN AFTMEALHC PRN PO DYSPEPSIA 04/08/21 17:45 Magnesium Hydroxide (Milk Of Magnesia) 2,400 mg PRN QHS PRN PO CONSTIPATION 04/08/21 17:45 Acetaminophen (Tylenol) 1,000 mg BID PO 04/08/21 21:00 04/18/21 20:09 Influenza Virus Vaccine Quadrival (Flulaval Quad [id number] Syringe) 0.5 ml ONCE ONCE VAX IM 04/09/21 09:00 04/09/21 09:01 DC 04/09/21 09:43 Citalopram Hydrobromide (CeleXA) 40 mg DAILY PO 04/10/21 09:00 04/09/21 18:40 DC Acetaminophen/ Hydrocodone Bitart (Lortab 5/325) 1 tab Q8HRS PO 04/09/21 15:45 04/18/21 20:08 Nicotine (Nicoderm Cq 14mg Patch) 1 patch PRN DAILY PRN TD SMOKING CESSATION 04/09/21 17:30 Bupropion HCl (Wellbutrin) 150 mg DAILY PO 04/10/21 09:00 04/18/21 08:35 Bupropion HCl (Wellbutrin) 75 mg 1200 PO 04/10/21 12:00 04/13/21 03:24 DC 04/12/21 12:25 Riluzole (Riluzole) 50 mg BID@1000,2200 PO 04/11/21 22:00 04/18/21 20:08 Riluzole (Riluzole) 50 mg STK-MED ONCE .ROUTE 04/09/21 21:00 04/11/21 10:42 DC Riluzole (Riluzole) 50 mg STK-MED ONCE .ROUTE 04/10/21 09:00 04/11/21 10:42 DC Riluzole (Riluzole) 50 mg STK-MED ONCE .ROUTE 04/11/21 09:00 04/11/21 10:42 DC Bupropion HCl (Wellbutrin) 150 mg 1200 PO 04/13/21 12:00 04/18/21 12:22 Quetiapine Fumarate (SEROquel) 250 mg QHS PO 04/13/21 21:00 04/18/21 20:10 Quetiapine Fumarate (SEROquel) 50 mg BID@0900,1500 PO 04/13/21 09:00 04/18/21 13:49 Current Medications Medications (Trade) Dose Ordered Sig/Yakelin Route PRN Reason Start Time Stop Time Status Last Admin Dose Admin Vitamin D (Vitamin D3) 50,000 unit QM@0900 PO 04/18/21 09:00 04/18/21 08:35 I have reviewed the current psychotropics carefully including drug interactions. Risk benefit ratio favors no change other than as noted in my dictated progress note. Diagnosis: Problems: (1) Amyotrophic lateral sclerosis (2) Anxiety disorder, unspecified (3) Bipolar 1 disorder, depressed (4) Major depressive disorder, recurrent episode, severe HERBERT,DIMITRI Coronado MD Apr 18, 2021 22:40
[2021-04-19] MEDS: HYDROcodone/APAP 5/325MG 1 TAB TABLET PO SCH ×3 (05:43→19:59)
[2021-04-19 06:11] VITALS: BP 124/71
[2021-04-19] MEDS: ASCORBIC ACID 500 MG TABLET PO SCH ×3 (08:38→19:58)
[2021-04-19] MEDS: ACETAMINOPHEN 500 MG TABLET PO SCH ×2 (08:38→19:58)
[2021-04-19] MEDS: POLYETHYLENE GLYCOL 3350 17 GM PACKET. PO SCH (08:38)
[2021-04-19] MEDS: DOCUSATE SODIUM 100 MG CAPSULE PO SCH (08:39)
[2021-04-19] MEDS: RILUZOLE 50 MG PO SCH ×2 (08:39→19:58)
[2021-04-19] MEDS: buPROPion 75 MG TABLET PO SCH ×2 (08:39→12:00)
[2021-04-19] MEDS: QUEtiapine 50 MG TABLET. PO SCH ×2 (08:39→15:02)
[2021-04-19] MEDS: GABAPENTIN 300 MG CAPSULE. PO SCH ×3 (08:39→19:59)
[2021-04-19] MEDS: BACLOFEN 20 MG TABLET PO SCH ×3 (08:39→19:58)
[2021-04-19] MEDS: metFORMIN 500 MG TABLET PO SCH ×2 (08:39→17:32)
--- NOTE | 2021-04-19 14:31 | NUR ---
Nursing note: Patient is in dinning room for morning medication & assessment. He is compliant with medications taken whole. He is alert and oriented x 4, can be needy, demanding, irritable. He denies any SI at this time. Patient requires lift assist, feeding assistance, and uses a broda chair when not in bed. He stayed up in the morning through lunch then laid down. He is currently laying awake in bed talking with socially responsible investment adviser. Will continue to monitor.
[2021-04-19 15:40] VITALS: BP 121/67
--- NOTE | 2021-04-19 16:35 | TX PLAN ---
Interdisciplinary Tx Plan Admission Information Apr 08, 2021 at 17:15 Legal Status (on Admission): Voluntary DPOA/Guardian Name: Pt is a self sign as he is A/O X4 Contact Phone Number: [phone] Other Contact Name: ARIS Renteria Other Contact Verified Code Status: Full Code Allergies: Coded Allergies: haloperidol (Verified Allergy, Intermediate, 04/11/21) Diagnoses Primary Diagnosis: (1) MDD (major depressive disorder) (2) Amyotrophic lateral sclerosis (3) Anxiety disorder, unspecified (4) Bipolar 1 disorder, depressed Reasons for Admission: Agitated, Depressed, Angry, Anxiety/Panic, Suicidal ideation Problem in Patient's Words: Pt reports struggling with depression and admits that he has struggled with these symptoms before. Pt denies current feelings of suididal ideation and states that he knows the comments he made at his facility got him sent here to the hospital. Additional Admission Comments: Per intake record, pt suicidal, as he is upset with having a diagnosis of Amyotrophic Lateral Sclerosis (ALS) and declining ability. Problems Active Problems: Depression, irritability, agitation Inactive Problems: Pt denies any current or active suicidial ideation Pt Strengths/Limitations Ability for [place]: Poor Cognitive Functioning/Ability: Fair Communication Skills/Ability: Good Financial Resources: Poor Insight/Judgement: Fair Intellectual Ability: Fair Physical Health: Poor Social Skills: Good Stability in Family: Fair Stability in School/Work: Fair Verbal Skills: Good Discharge Criteria Discharge Criteria: No need for close observ., Adequate arrangements @DC, Verbal commit med comply, Improved behavior, Improved mood/thought Other Discharge Comments: None at this time. Preliminary Discharge Plan Preliminary DC Plan: Current Living Arrange. Special Precautions Special Precautions: Agitation/Assault, Suicide Risk Fall Risk: Low Initial D/C Plan Pt plan is to return to [facility] [address] Identified Discharge Needs: None at this time. Currently Utilized Resources Currently Utilized Resources/P: PCP-Dr. [facility] [address] [employer] Friend-Ge Friend-Nehemiah Molina-[facility] Referrals Community Resources: None at this time. Identified Problems/Hx/Goals Objectives/Short-Term Goals Short Term Goals: Control abnormal behavior, Dec. Anxiety/Panic, Dec. Symp. Depression, Medication Stabilization, Monitor Med Effects, No Suicidal/Marco. ideation, Prevent Deterioration, Promote Coping Skill Short Term Goals in Patient's: To have less depressive symptoms and fee like I can still contribute to others through my music. Interventions/Frequency Staff Interventions/Frequency&: Psychiatry to assess pt three times per week for medication management. Nursing to assess behaviors, monitor medications, and complete 15 minute checks daily. Social work to see pt at least two times weekly to aid in return to placement. Activities to encourage pt to participate in group activities daily. 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 Education: Pt reports having received his GED and then took some college courses. Pt states that he attended [employer] and took private jazz/music classes. 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 Community Follow-up PCP Community Provider/Family Inpu: Information obtained directly from pt as he is A/O X4. Treatment Plan Explained Patient/Mold Runner had this treatment plan explained to him/her as indicated by the signature below and has been given the opportunity to ask questions and make suggestions: Date: Patient/Mold Runner Signature: Status Update Update Pt is eating 50% of his meals and averaging 7.5 hours of sleep per night. Pt takes naps throughout the day as he wants to be in bed most of the time due to pain cause by ALS. Pt can be demanding and irritable at times, but for the most part he enjoys having company to talk to. Pt makes periodic calls to friends throughout the day. Pt is cooperative with medications and cares. Pt denies SI and feels like he is ready to go back to his facility. Pt has been attending groups as able and is pleasant with staff and other peers. Pt plan is to return to [facility] on at time of discharge. Treatment plan update was completed on 04/18/21. MOSES IQBAL Apr 19, 2021 16:35
--- NOTE | 2021-04-19 16:41 | NUR ---
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 Pt states that there is an article about it in the [place] [employer]. Pt stated that he really feels like he is ready for discharge as he is not having any feelings of SI. SW let pt know that contact has been made to his SW at his facility and is awaiting a response. Pt appreciative of assistance.
[2021-04-19] MEDS: QUEtiapine 100 MG TABLET. PO SCH (19:57)
[2021-04-19] MEDS: ATORVASTATIN CALCIUM 10 MG TABLET. PO SCH (19:57)
[2021-04-19] MEDS: MIRTAZAPINE 30 MG TABLET PO SCH (19:58)
[2021-04-19] MEDS: traZODone 100 MG TABLET. PO SCH (19:58)
--- NOTE | 2021-04-19 20:50 | PDOC ---
Exam Note: Bran Note: Please also refer to the separate dictated note~for this date of service dictated separately.~Patient seen individually. Discussed the patient with Nursing staff reviewed the chart.~Reviewed interim history and current functioning. Reviewed vital signs,~Labs/ Radiology~and current medications noted below. Continue current treatment with the changes noted in the dictated addendum note Assessment: Vital Signs/I&O: Vital Signs Date Time Temp Pulse Resp B/P (MAP) Pulse Ox O2 Delivery O2 Flow Rate FiO2 04/19/21 15:40 98.6 93 18 121/67 (85) 93 04/19/21 06:11 2.0 04/17/21 16:01 Room Air I & O 0 04/18/21 04/18/21 04/19/21 15:00 23:00 07:00 Intake Total 720 ml 720 ml 100 ml Balance 720 ml 720 ml 100 ml Current Medications: Meds: Current Medications Medications (Trade) Dose Ordered Sig/Yakelin Route PRN Reason Start Time Stop Time Status Last Admin Dose Admin Atorvastatin Calcium (Lipitor) 10 mg QHS PO 04/08/21 21:00 04/19/21 19:57 Baclofen (Lioresal) 20 mg TID PO 04/08/21 21:00 04/19/21 19:58 Bupropion HCl (Wellbutrin) 75 mg BID PO 04/08/21 21:00 04/09/21 18:10 DC 04/09/21 09:39 Docusate Sodium (Colace) 100 mg DAILY PO 04/09/21 09:00 04/19/21 08:39 Gabapentin (Neurontin) 300 mg TID PO 04/08/21 21:00 04/19/21 19:59 Acetaminophen/ Hydrocodone Bitart (Lortab 5/325) 1 tab PRN Q6HRS PRN PO PAIN 04/08/21 17:45 04/09/21 15:40 DC 04/09/21 13:18 Metformin HCl (Glucophage) 500 mg BIDWMEALS PO 04/09/21 08:00 04/19/21 17:32 Mirtazapine (Remeron) 30 mg QHS PO 04/08/21 21:00 04/19/21 19:58 Tramadol HCl (Ultram) 50 mg Q8HRS PO 04/08/21 22:00 04/09/21 15:40 DC 04/09/21 13:01 Trazodone HCl (Desyrel) 100 mg QHS PO 04/08/21 21:00 04/19/21 19:58 Ascorbic Acid (Vitamin C) 1,000 mg TID PO 04/08/21 21:00 04/19/21 19:58 Non-Formulary Medication (Beta-Carotene (Beta Carotene)) 25,000 unit DAILY PO 04/09/21 09:00 UNV Vitamin D (Vitamin D3) 50,000 unit QM@0900 PO 04/18/21 09:00 04/18/21 08:35 Citalopram Hydrobromide (CeleXA) 40 mg DAILY PO 04/09/21 09:00 04/09/21 18:40 DC 04/09/21 09:40 Polyethylene Glycol (miraLAX) 17 gm DAILY PO 04/09/21 09:00 04/19/21 08:38 Quetiapine Fumarate (SEROquel) 300 mg QHS PO 04/08/21 21:00 04/13/21 03:24 DC 04/12/21 20:55 Non-Formulary Medication (Riluzole ) 50 mg BID PO 04/08/21 21:00 04/11/21 10:42 DC 04/11/21 09:15 Multi-Ingredient Ointment (Analgesic [place]) 1 komal PRN QID PRN TP MUSCLE PAIN 04/08/21 17:45 Al Hydroxide/Mg Hydroxide (Mylanta Plus Xs) 15 ml PRN AFTMEALHC PRN PO DYSPEPSIA 04/08/21 17:45 Magnesium Hydroxide (Milk Of Magnesia) 2,400 mg PRN QHS PRN PO CONSTIPATION 04/08/21 17:45 Acetaminophen (Tylenol) 1,000 mg BID PO 04/08/21 21:00 04/19/21 19:58 Influenza Virus Vaccine Quadrival (Flulaval Quad [id number] Syringe) 0.5 ml ONCE ONCE VAX IM 04/09/21 09:00 04/09/21 09:01 DC 04/09/21 09:43 Citalopram Hydrobromide (CeleXA) 40 mg DAILY PO 04/10/21 09:00 04/09/21 18:40 DC Acetaminophen/ Hydrocodone Bitart (Lortab 5/325) 1 tab Q8HRS PO 04/09/21 15:45 04/19/21 19:59 Nicotine (Nicoderm Cq 14mg Patch) 1 patch PRN DAILY PRN TD SMOKING CESSATION 04/09/21 17:30 Bupropion HCl (Wellbutrin) 150 mg DAILY PO 04/10/21 09:00 04/19/21 08:39 Bupropion HCl (Wellbutrin) 75 mg 1200 PO 04/10/21 12:00 04/13/21 03:24 DC 04/12/21 12:25 Riluzole (Riluzole) 50 mg BID@1000,2200 PO 04/11/21 22:00 04/19/21 19:58 Riluzole (Riluzole) 50 mg STK-MED ONCE .ROUTE 04/09/21 21:00 04/11/21 10:42 DC Riluzole (Riluzole) 50 mg STK-MED ONCE .ROUTE 04/10/21 09:00 04/11/21 10:42 DC Riluzole (Riluzole) 50 mg STK-MED ONCE .ROUTE 04/11/21 09:00 04/11/21 10:42 DC Bupropion HCl (Wellbutrin) 150 mg 1200 PO 04/13/21 12:00 04/19/21 12:00 Quetiapine Fumarate (SEROquel) 250 mg QHS PO 04/13/21 21:00 04/19/21 19:57 Quetiapine Fumarate (SEROquel) 50 mg BID@0900,1500 PO 04/13/21 09:00 04/19/21 15:02 I have reviewed the current psychotropics carefully including drug interactions. Risk benefit ratio favors no change other than as noted in my dictated progress note. Diagnosis: Problems: (1) Amyotrophic lateral sclerosis (2) Anxiety disorder, unspecified (3) Bipolar 1 disorder, depressed (4) Major depressive disorder, recurrent episode, severe DIMITRI GODINEZ MD Apr 19, 2021 20:50
--- NOTE | 2021-04-19 21:53 | NUR ---
Patient was in bed, asleep when nurse entered room to give HS medications. Patient in better mood tonight, asking who is paying for his stay and stating that he heard he may leave at the end of the week. Patient compliant with medications given a few at a time with a spoon, he had gatorade with them. Patient reported pain, per usual in his hands, shoulders, arms and left side. He returned to sleep after medications were given. Will continue to monitor.
[2021-04-20] MEDS: HYDROcodone/APAP 5/325MG 1 TAB TABLET PO SCH ×3 (05:39→20:49)
[2021-04-20 05:55] VITALS: BP 123/76
--- NOTE | 2021-04-20 06:45 | PDOC ---
Exam Note: Bran Note: This note is a late entry for 04/18/2021 covers elements not covered in my initial note. Subjective: The patient was reviewed at treatment team meeting individually in the morning on 04/18/2021 with Cecilia Cali, Rosa Jones, and Dina Mccabe (social media manager), Alice, activity therapy, Tamera RN, Industrial Truck Operator, and Jessie RN, discussed and reviewed the chart. We discussed the patients diagnoses, progress. The patient slept 7-1/2 hours previous night. Overall, the patient has attended 2 groups, frequently wants to be left in his room. He comes across quite demanding to certain staff members and seems to do better with other staff members. I also discussed with Roxanna MERCADO in the evening. Review of Systems: Ambulation impaired. He does complain of pain as before. No CV, , pulmonary, eye, ENT system symptoms on review. Mental Status Exam: The patient is reasonably oriented. Speech is coherent. Abstraction fair. Computation impaired. Language function intact. Mood and affect somewhat dysphoric. No suicidal ideation. Laboratory Data: Reviewed. Impression: Major depressive disorder, recurrent, severe. Anxiety disorder unspecified. ALS. Plan: Continue current psychotropics unchanged. Reviewed informed consent, risk-benefit ratio. Assessment: Vital Signs/I&O: Vital Signs Date Time Temp Pulse Resp B/P (MAP) Pulse Ox O2 Delivery O2 Flow Rate FiO2 04/20/21 05:55 97.7 106 20 123/76 (92) 98 Nasal Cannula 2.0 I & O 04/19/21 04/19/21 04/20/21 15:00 23:00 07:00 Intake Total 330 ml 340 ml Balance 330 ml 340 ml Current Medications: Meds: Current Medications Medications (Trade) Dose Ordered Sig/Yakelin Route PRN Reason Start Time Stop Time Status Last Admin Dose Admin Atorvastatin Calcium (Lipitor) 10 mg QHS PO 04/08/21 21:00 04/19/21 19:57 Baclofen (Lioresal) 20 mg TID PO 04/08/21 21:00 04/19/21 19:58 Bupropion HCl (Wellbutrin) 75 mg BID PO 04/08/21 21:00 04/09/21 18:10 DC 04/09/21 09:39 Docusate Sodium (Colace) 100 mg DAILY PO 04/09/21 09:00 04/19/21 08:39 Gabapentin (Neurontin) 300 mg TID PO 04/08/21 21:00 04/19/21 19:59 Acetaminophen/ Hydrocodone Bitart (Lortab 5/325) 1 tab PRN Q6HRS PRN PO PAIN 04/08/21 17:45 04/09/21 15:40 DC 04/09/21 13:18 Metformin HCl (Glucophage) 500 mg BIDWMEALS PO 04/09/21 08:00 04/19/21 17:32 Mirtazapine (Remeron) 30 mg QHS PO 04/08/21 21:00 04/19/21 19:58 Tramadol HCl (Ultram) 50 mg Q8HRS PO 04/08/21 22:00 04/09/21 15:40 DC 04/09/21 13:01 Trazodone HCl (Desyrel) 100 mg QHS PO 04/08/21 21:00 04/19/21 19:58 Ascorbic Acid (Vitamin C) 1,000 mg TID PO 04/08/21 21:00 04/19/21 19:58 Non-Formulary Medication (Beta-Carotene (Beta Carotene)) 25,000 unit DAILY PO 04/09/21 09:00 UNV Vitamin D (Vitamin D3) 50,000 unit QM@0900 PO 04/18/21 09:00 04/18/21 08:35 Citalopram Hydrobromide (CeleXA) 40 mg DAILY PO 04/09/21 09:00 04/09/21 18:40 DC 04/09/21 09:40 Polyethylene Glycol (miraLAX) 17 gm DAILY PO 04/09/21 09:00 04/19/21 08:38 Quetiapine Fumarate (SEROquel) 300 mg QHS PO 04/08/21 21:00 04/13/21 03:24 DC 04/12/21 20:55 Non-Formulary Medication (Riluzole ) 50 mg BID PO 04/08/21 21:00 04/11/21 10:42 DC 04/11/21 09:15 Multi-Ingredient Ointment (Analgesic [place]) 1 komal PRN QID PRN TP MUSCLE PAIN 04/08/21 17:45 Al Hydroxide/Mg Hydroxide (Mylanta Plus Xs) 15 ml PRN AFTMEALHC PRN PO DYSPEPSIA 04/08/21 17:45 Magnesium Hydroxide (Milk Of Magnesia) 2,400 mg PRN QHS PRN PO CONSTIPATION 04/08/21 17:45 Acetaminophen (Tylenol) 1,000 mg BID PO 04/08/21 21:00 04/19/21 19:58 Influenza Virus Vaccine Quadrival (Flulaval Quad [id number] Syringe) 0.5 ml ONCE ONCE VAX IM 04/09/21 09:00 04/09/21 09:01 DC 04/09/21 09:43 Citalopram Hydrobromide (CeleXA) 40 mg DAILY PO 04/10/21 09:00 04/09/21 18:40 DC Acetaminophen/ Hydrocodone Bitart (Lortab 5/325) 1 tab Q8HRS PO 04/09/21 15:45 04/20/21 05:39 Nicotine (Nicoderm Cq 14mg Patch) 1 patch PRN DAILY PRN TD SMOKING CESSATION 04/09/21 17:30 Bupropion HCl (Wellbutrin) 150 mg DAILY PO 04/10/21 09:00 04/19/21 08:39 Bupropion HCl (Wellbutrin) 75 mg 1200 PO 04/10/21 12:00 04/13/21 03:24 DC 04/12/21 12:25 Riluzole (Riluzole) 50 mg BID@1000,2200 PO 04/11/21 22:00 04/19/21 19:58 Riluzole (Riluzole) 50 mg STK-MED ONCE .ROUTE 04/09/21 21:00 04/11/21 10:42 DC Riluzole (Riluzole) 50 mg STK-MED ONCE .ROUTE 04/10/21 09:00 04/11/21 10:42 DC Riluzole (Riluzole) 50 mg STK-MED ONCE .ROUTE 04/11/21 09:00 04/11/21 10:42 DC Bupropion HCl (Wellbutrin) 150 mg 1200 PO 04/13/21 12:00 04/19/21 12:00 Quetiapine Fumarate (SEROquel) 250 mg QHS PO 04/13/21 21:00 04/19/21 19:57 Quetiapine Fumarate (SEROquel) 50 mg BID@0900,1500 PO 04/13/21 09:00 04/19/21 15:02 I have reviewed the current psychotropics carefully including drug interactions. Risk benefit ratio favors no change other than as noted in my dictated progress note. Diagnosis: Problems: (1) Amyotrophic lateral sclerosis (2) Anxiety disorder, unspecified (3) Bipolar 1 disorder, depressed (4) Major depressive disorder, recurrent episode, severe DIMITRI GODINEZ MD Apr 20, 2021 06:45
--- NOTE | 2021-04-20 07:43 | PDOC ---
Exam Note: Bran Note: This note is a late entry for 04/19/2021 covers elements not covered in my initial note. Subjective: The patient was seen individually in the evening of 04/19/2021 with Roxanna MERCADO, discussed and reviewed the chart. The patient slept 7-1/2 hours previous night. I met with the patient in his room. He was getting ready for bed, being assisted by nursing staff, fairly cooperative. Review of Systems: Ambulation impaired. He does complain of pain. No CV, , pulmonary, eye, ENT system symptoms on review. Mental Status Exam: The patient is reasonably oriented. Speech is coherent has some latency. Abstraction fair. Computation impaired. Mood and affect dysphoric, anxious. No suicidal ideation. Laboratory Data: Reviewed. Impression: Major depressive disorder, recurrent, severe. Anxiety disorder unspecified. ALS. Plan: Continue rest of the psychotropics unchanged. Assessment: Vital Signs/I&O: Vital Signs Date Time Temp Pulse Resp B/P (MAP) Pulse Ox O2 Delivery O2 Flow Rate FiO2 04/20/21 05:55 97.7 106 20 123/76 (92) 98 Nasal Cannula 2.0 I & O 04/19/21 04/19/21 04/20/21 15:00 23:00 07:00 Intake Total 330 ml 340 ml Balance 330 ml 340 ml Current Medications: Meds: Current Medications Medications (Trade) Dose Ordered Sig/Yakelin Route PRN Reason Start Time Stop Time Status Last Admin Dose Admin Atorvastatin Calcium (Lipitor) 10 mg QHS PO 04/08/21 21:00 04/19/21 19:57 Baclofen (Lioresal) 20 mg TID PO 04/08/21 21:00 04/19/21 19:58 Bupropion HCl (Wellbutrin) 75 mg BID PO 04/08/21 21:00 04/09/21 18:10 DC 04/09/21 09:39 Docusate Sodium (Colace) 100 mg DAILY PO 04/09/21 09:00 04/19/21 08:39 Gabapentin (Neurontin) 300 mg TID PO 04/08/21 21:00 04/19/21 19:59 Acetaminophen/ Hydrocodone Bitart (Lortab 5/325) 1 tab PRN Q6HRS PRN PO PAIN 04/08/21 17:45 04/09/21 15:40 DC 04/09/21 13:18 Metformin HCl (Glucophage) 500 mg BIDWMEALS PO 04/09/21 08:00 04/19/21 17:32 Mirtazapine (Remeron) 30 mg QHS PO 04/08/21 21:00 04/19/21 19:58 Tramadol HCl (Ultram) 50 mg Q8HRS PO 04/08/21 22:00 04/09/21 15:40 DC 04/09/21 13:01 Trazodone HCl (Desyrel) 100 mg QHS PO 04/08/21 21:00 04/19/21 19:58 Ascorbic Acid (Vitamin C) 1,000 mg TID PO 04/08/21 21:00 04/19/21 19:58 Non-Formulary Medication (Beta-Carotene (Beta Carotene)) 25,000 unit DAILY PO 04/09/21 09:00 UNV Vitamin D (Vitamin D3) 50,000 unit QM@0900 PO 04/18/21 09:00 04/18/21 08:35 Citalopram Hydrobromide (CeleXA) 40 mg DAILY PO 04/09/21 09:00 04/09/21 18:40 DC 04/09/21 09:40 Polyethylene Glycol (miraLAX) 17 gm DAILY PO 04/09/21 09:00 04/19/21 08:38 Quetiapine Fumarate (SEROquel) 300 mg QHS PO 04/08/21 21:00 04/13/21 03:24 DC 04/12/21 20:55 Non-Formulary Medication (Riluzole ) 50 mg BID PO 04/08/21 21:00 04/11/21 10:42 DC 04/11/21 09:15 Multi-Ingredient Ointment (Analgesic [place]) 1 komal PRN QID PRN TP MUSCLE PAIN 04/08/21 17:45 Al Hydroxide/Mg Hydroxide (Mylanta Plus Xs) 15 ml PRN AFTMEALHC PRN PO DYSPEPSIA 04/08/21 17:45 Magnesium Hydroxide (Milk Of Magnesia) 2,400 mg PRN QHS PRN PO CONSTIPATION 04/08/21 17:45 Acetaminophen (Tylenol) 1,000 mg BID PO 04/08/21 21:00 04/19/21 19:58 Influenza Virus Vaccine Quadrival (Flulaval Quad [id number] Syringe) 0.5 ml ONCE ONCE VAX IM 04/09/21 09:00 04/09/21 09:01 DC 04/09/21 09:43 Citalopram Hydrobromide (CeleXA) 40 mg DAILY PO 04/10/21 09:00 04/09/21 18:40 DC Acetaminophen/ Hydrocodone Bitart (Lortab 5/325) 1 tab Q8HRS PO 04/09/21 15:45 04/20/21 05:39 Nicotine (Nicoderm Cq 14mg Patch) 1 patch PRN DAILY PRN TD SMOKING CESSATION 04/09/21 17:30 Bupropion HCl (Wellbutrin) 150 mg DAILY PO 04/10/21 09:00 04/19/21 08:39 Bupropion HCl (Wellbutrin) 75 mg 1200 PO 04/10/21 12:00 04/13/21 03:24 DC 04/12/21 12:25 Riluzole (Riluzole) 50 mg BID@1000,2200 PO 04/11/21 22:00 04/19/21 19:58 Riluzole (Riluzole) 50 mg STK-MED ONCE .ROUTE 04/09/21 21:00 04/11/21 10:42 DC Riluzole (Riluzole) 50 mg STK-MED ONCE .ROUTE 04/10/21 09:00 04/11/21 10:42 DC Riluzole (Riluzole) 50 mg STK-MED ONCE .ROUTE 04/11/21 09:00 04/11/21 10:42 DC Bupropion HCl (Wellbutrin) 150 mg 1200 PO 04/13/21 12:00 04/19/21 12:00 Quetiapine Fumarate (SEROquel) 250 mg QHS PO 04/13/21 21:00 04/19/21 19:57 Quetiapine Fumarate (SEROquel) 50 mg BID@0900,1500 PO 04/13/21 09:00 04/19/21 15:02 I have reviewed the current psychotropics carefully including drug interactions. Risk benefit ratio favors no change other than as noted in my dictated progress note. Diagnosis: Problems: (1) Amyotrophic lateral sclerosis (2) Anxiety disorder, unspecified (3) Major depressive disorder, recurrent episode, severe HERBERT,MAN M MD Apr 20, 2021 07:43
[2021-04-20] MEDS: buPROPion 75 MG TABLET PO SCH ×2 (08:04→12:13)
[2021-04-20] MEDS: ASCORBIC ACID 500 MG TABLET PO SCH ×3 (08:04→20:51)
[2021-04-20] MEDS: GABAPENTIN 300 MG CAPSULE. PO SCH ×3 (08:04→20:49)
[2021-04-20] MEDS: DOCUSATE SODIUM 100 MG CAPSULE PO SCH (08:04)
[2021-04-20] MEDS: metFORMIN 500 MG TABLET PO SCH ×2 (08:04→17:16)
[2021-04-20] MEDS: QUEtiapine 50 MG TABLET. PO SCH ×2 (08:04→14:14)
[2021-04-20] MEDS: BACLOFEN 20 MG TABLET PO SCH ×3 (08:05→20:51)
[2021-04-20] MEDS: ACETAMINOPHEN 500 MG TABLET PO SCH (08:05)
[2021-04-20] MEDS: POLYETHYLENE GLYCOL 3350 17 GM PACKET. PO SCH (09:00)
[2021-04-20] MEDS: RILUZOLE 50 MG PO SCH ×2 (10:50→20:50)
[2021-04-20 15:34] VITALS: BP 111/61
--- NOTE | 2021-04-20 18:08 | NUR ---
Patient calm, cooperative, and usually withdrawn to his room. He has been cooperative with medications and assessments. Patient stated he prefers to be in bed because the Broda causes him pain in his hip and shoulders. Will continue to monitor and report to oncoming shift.
--- NOTE | 2021-04-20 20:13 | PDOC ---
Exam Note: Bran Note: Please also refer to the separate dictated note~for this date of service dictated separately.~Patient seen individually. Discussed the patient with Nursing staff reviewed the chart.~Reviewed interim history and current functioning. Reviewed vital signs,~Labs/ Radiology~and current medications noted below. Continue current treatment with the changes noted in the dictated addendum note Assessment: Vital Signs/I&O: Vital Signs Date Time Temp Pulse Resp B/P (MAP) Pulse Ox O2 Delivery O2 Flow Rate FiO2 04/20/21 15:34 98.6 104 18 111/61 (78) 93 04/20/21 14:48 Room Air 04/20/21 05:55 2.0 I & O 04/19/21 04/19/21 04/20/21 15:00 23:00 07:00 Intake Total 330 ml 340 ml Balance 330 ml 340 ml Current Medications: Meds: Current Medications Medications (Trade) Dose Ordered Sig/Yakelin Route PRN Reason Start Time Stop Time Status Last Admin Dose Admin Atorvastatin Calcium (Lipitor) 10 mg QHS PO 04/08/21 21:00 04/19/21 19:57 Baclofen (Lioresal) 20 mg TID PO 04/08/21 21:00 04/20/21 14:14 Bupropion HCl (Wellbutrin) 75 mg BID PO 04/08/21 21:00 04/09/21 18:10 DC 04/09/21 09:39 Docusate Sodium (Colace) 100 mg DAILY PO 04/09/21 09:00 04/20/21 08:04 Gabapentin (Neurontin) 300 mg TID PO 04/08/21 21:00 04/20/21 14:14 Acetaminophen/ Hydrocodone Bitart (Lortab 5/325) 1 tab PRN Q6HRS PRN PO PAIN 04/08/21 17:45 04/09/21 15:40 DC 04/09/21 13:18 Metformin HCl (Glucophage) 500 mg BIDWMEALS PO 04/09/21 08:00 04/20/21 17:16 Mirtazapine (Remeron) 30 mg QHS PO 04/08/21 21:00 04/19/21 19:58 Tramadol HCl (Ultram) 50 mg Q8HRS PO 04/08/21 22:00 04/09/21 15:40 DC 04/09/21 13:01 Trazodone HCl (Desyrel) 100 mg QHS PO 04/08/21 21:00 04/19/21 19:58 Ascorbic Acid (Vitamin C) 1,000 mg TID PO 04/08/21 21:00 04/20/21 17:32 DC 04/20/21 14:15 Non-Formulary Medication (Beta-Carotene (Beta Carotene)) 25,000 unit DAILY PO 04/09/21 09:00 UNV Vitamin D (Vitamin D3) 50,000 unit QM@0900 PO 04/18/21 09:00 04/18/21 08:35 Citalopram Hydrobromide (CeleXA) 40 mg DAILY PO 04/09/21 09:00 04/09/21 18:40 DC 04/09/21 09:40 Polyethylene Glycol (miraLAX) 17 gm DAILY PO 04/09/21 09:00 04/19/21 08:38 Quetiapine Fumarate (SEROquel) 300 mg QHS PO 04/08/21 21:00 04/13/21 03:24 DC 04/12/21 20:55 Non-Formulary Medication (Riluzole ) 50 mg BID PO 04/08/21 21:00 04/11/21 10:42 DC 04/11/21 09:15 Multi-Ingredient Ointment (Analgesic [place]) 1 komal PRN QID PRN TP MUSCLE PAIN 04/08/21 17:45 Al Hydroxide/Mg Hydroxide (Mylanta Plus Xs) 15 ml PRN AFTMEALHC PRN PO DYSPEPSIA 04/08/21 17:45 Magnesium Hydroxide (Milk Of Magnesia) 2,400 mg PRN QHS PRN PO CONSTIPATION 04/08/21 17:45 Acetaminophen (Tylenol) 1,000 mg BID PO 04/08/21 21:00 04/20/21 17:32 DC 04/20/21 08:05 Influenza Virus Vaccine Quadrival (Flulaval Quad [id number] Syringe) 0.5 ml ONCE ONCE VAX IM 04/09/21 09:00 04/09/21 09:01 DC 04/09/21 09:43 Citalopram Hydrobromide (CeleXA) 40 mg DAILY PO 04/10/21 09:00 04/09/21 18:40 DC Acetaminophen/ Hydrocodone Bitart (Lortab 5/325) 1 tab Q8HRS PO 04/09/21 15:45 04/20/21 14:15 Nicotine (Nicoderm Cq 14mg Patch) 1 patch PRN DAILY PRN TD SMOKING CESSATION 04/09/21 17:30 Bupropion HCl (Wellbutrin) 150 mg DAILY PO 04/10/21 09:00 04/20/21 08:04 Bupropion HCl (Wellbutrin) 75 mg 1200 PO 04/10/21 12:00 04/13/21 03:24 DC 04/12/21 12:25 Riluzole (Riluzole) 50 mg BID@1000,2200 PO 04/11/21 22:00 04/20/21 10:50 Riluzole (Riluzole) 50 mg STK-MED ONCE .ROUTE 04/09/21 21:00 04/11/21 10:42 DC Riluzole (Riluzole) 50 mg STK-MED ONCE .ROUTE 04/10/21 09:00 04/11/21 10:42 DC Riluzole (Riluzole) 50 mg STK-MED ONCE .ROUTE 04/11/21 09:00 04/11/21 10:42 DC Bupropion HCl (Wellbutrin) 150 mg 1200 PO 04/13/21 12:00 04/20/21 12:13 Quetiapine Fumarate (SEROquel) 250 mg QHS PO 04/13/21 21:00 04/19/21 19:57 Quetiapine Fumarate (SEROquel) 50 mg BID@0900,1500 PO 04/13/21 09:00 04/20/21 14:14 Ascorbic Acid (Vitamin C) 500 mg BID PO 04/20/21 21:00 I have reviewed the current psychotropics carefully including drug interactions. Risk benefit ratio favors no change other than as noted in my dictated progress note. Diagnosis: Problems: (1) Amyotrophic lateral sclerosis (2) Anxiety disorder, unspecified (3) Bipolar 1 disorder, depressed (4) Major depressive disorder, recurrent episode, severe HERBERTDIMITRI MD Apr 20, 2021 20:13
[2021-04-20] MEDS: MIRTAZAPINE 30 MG TABLET PO SCH (20:49)
[2021-04-20] MEDS: ATORVASTATIN CALCIUM 10 MG TABLET. PO SCH (20:49)
[2021-04-20] MEDS: QUEtiapine 100 MG TABLET. PO SCH (20:50)
[2021-04-20] MEDS: traZODone 100 MG TABLET. PO SCH (20:50)
--- NOTE | 2021-04-20 22:39 | NUR ---
Patient was in bed when this nurse arrived on shift. He was compliant with medications given a few at a time on a spoon followed by teri. patient asked nurse to adjust his bed several times (head up, head down, etc). Patient stated he is leaving Sunday and is glad. He has been appropriate, cooperative and calm this night.
[2021-04-21] MEDS: HYDROcodone/APAP 5/325MG 1 TAB TABLET PO SCH ×3 (05:12→19:56)
[2021-04-21 06:22] VITALS: BP 118/71
[2021-04-21] MEDS: POLYETHYLENE GLYCOL 3350 17 GM PACKET. PO SCH (07:36)
[2021-04-21] MEDS: DOCUSATE SODIUM 100 MG CAPSULE PO SCH (07:36)
[2021-04-21] MEDS: BACLOFEN 20 MG TABLET PO SCH ×3 (08:26→19:54)
[2021-04-21] MEDS: metFORMIN 500 MG TABLET PO SCH ×2 (08:26→16:44)
[2021-04-21] MEDS: GABAPENTIN 300 MG CAPSULE. PO SCH ×3 (08:26→19:54)
[2021-04-21] MEDS: RILUZOLE 50 MG PO SCH ×2 (08:26→19:55)
[2021-04-21] MEDS: ASCORBIC ACID 500 MG TABLET PO SCH ×2 (08:26→19:54)
[2021-04-21] MEDS: QUEtiapine 50 MG TABLET. PO SCH ×2 (08:26→14:56)
[2021-04-21] MEDS: buPROPion 75 MG TABLET PO SCH ×2 (08:26→12:23)
--- NOTE | 2021-04-21 09:03 | NUR ---
Pt appropriate so far this shift. He participates in assessment and is medication compliant. He is A&Ox4, denies SI/HI/VH/AH/delusions/pain. Morning Miralax and Docusate held d/t XL BM pt has had already this morning. He is appropriate in his interactions with staff. He has been absent of verbal/physical aggression so far this shift. Plan of care continues, will pass to next shift.
--- NOTE | 2021-04-21 15:49 | NUR ---
[facility] Social Work Discharge Planning Form Patient Name MATY VINCENT Admit Date: 04/08/21 DISCHARGE PLAN Discharge Destination: [facility] Assessment: No Level II Assessment: No Transportation: Facility will package pick up on 04/22/21 at 0930 Special Instructions/Notes: Please fax signed medication list and visit summary to number below. DISCHARGE TO FACILITY Facility: [facility] Address: [address] [place] [address] Contact Name: ARIS Renteria PCP: Dr. Teran Psychiatrist: None
[2021-04-21 15:50] VITALS: BP 116/75
[2021-04-21] MEDS ORDERED: TRAM50TA PO (16:57)
[2021-04-21] MEDS ORDERED: HYDR-2155 PO (16:57)
[2021-04-21] MEDS: traZODone 100 MG TABLET. PO SCH (19:53)
[2021-04-21] MEDS: ATORVASTATIN CALCIUM 10 MG TABLET. PO SCH (19:54)
[2021-04-21] MEDS: MIRTAZAPINE 30 MG TABLET PO SCH (19:54)
[2021-04-21] MEDS: QUEtiapine 100 MG TABLET. PO SCH (19:55)
--- NOTE | 2021-04-21 20:31 | PDOC ---
Exam Note: Bran Note: Please also refer to the separate dictated note~for this date of service dictated separately.~Patient seen individually. Discussed the patient with Nursing staff reviewed the chart.~Reviewed interim history and current functioning. Reviewed vital signs,~Labs/ Radiology~and current medications noted below. Continue current treatment with the changes noted in the dictated addendum note Assessment: Vital Signs/I&O: Vital Signs Date Time Temp Pulse Resp B/P (MAP) Pulse Ox O2 Delivery O2 Flow Rate FiO2 04/21/21 19:56 94 04/21/21 15:56 Room Air 04/21/21 15:50 97.6 95 20 116/75 (89) 04/20/21 05:55 2.0 I & O 04/20/21 04/20/21 04/21/21 15:00 23:00 07:00 Intake Total 600 ml 480 ml Balance 600 ml 480 ml Labs: Laboratory Tests Test 04/21/21 14:15 04/21/21 14:51 Glucose (Fingerstick) 67 mg/dL (70-99) L 180 mg/dL (70-99) H Current Medications: Meds: Laboratory Tests Test 04/21/21 14:15 04/21/21 14:51 Glucose (Fingerstick) 67 mg/dL 180 mg/dL Current Medications Medications (Trade) Dose Ordered Sig/Yakelin Route PRN Reason Start Time Stop Time Status Last Admin Dose Admin Atorvastatin Calcium (Lipitor) 10 mg QHS PO 04/08/21 21:00 04/21/21 19:54 Baclofen (Lioresal) 20 mg TID PO 04/08/21 21:00 04/21/21 19:54 Bupropion HCl (Wellbutrin) 75 mg BID PO 04/08/21 21:00 04/09/21 18:10 DC 04/09/21 09:39 Docusate Sodium (Colace) 100 mg DAILY PO 04/09/21 09:00 04/20/21 08:04 Gabapentin (Neurontin) 300 mg TID PO 04/08/21 21:00 04/21/21 19:54 Acetaminophen/ Hydrocodone Bitart (Lortab 5/325) 1 tab PRN Q6HRS PRN PO PAIN 04/08/21 17:45 04/09/21 15:40 DC 04/09/21 13:18 Metformin HCl (Glucophage) 500 mg BIDWMEALS PO 04/09/21 08:00 04/21/21 16:44 Mirtazapine (Remeron) 30 mg QHS PO 04/08/21 21:00 04/21/21 19:54 Tramadol HCl (Ultram) 50 mg Q8HRS PO 04/08/21 22:00 04/09/21 15:40 DC 04/09/21 13:01 Trazodone HCl (Desyrel) 100 mg QHS PO 04/08/21 21:00 04/21/21 19:53 Ascorbic Acid (Vitamin C) 1,000 mg TID PO 04/08/21 21:00 04/20/21 17:32 DC 04/20/21 14:15 Non-Formulary Medication (Beta-Carotene (Beta Carotene)) 25,000 unit DAILY PO 04/09/21 09:00 UNV Vitamin D (Vitamin D3) 50,000 unit QM@0900 PO 04/18/21 09:00 04/18/21 08:35 Citalopram Hydrobromide (CeleXA) 40 mg DAILY PO 04/09/21 09:00 04/09/21 18:40 DC 04/09/21 09:40 Polyethylene Glycol (miraLAX) 17 gm DAILY PO 04/09/21 09:00 04/19/21 08:38 Quetiapine Fumarate (SEROquel) 300 mg QHS PO 04/08/21 21:00 04/13/21 03:24 DC 04/12/21 20:55 Non-Formulary Medication (Riluzole ) 50 mg BID PO 04/08/21 21:00 04/11/21 10:42 DC 04/11/21 09:15 Multi-Ingredient Ointment (Analgesic [place]) 1 komal PRN QID PRN TP MUSCLE PAIN 04/08/21 17:45 Al Hydroxide/Mg Hydroxide (Mylanta Plus Xs) 15 ml PRN AFTMEALHC PRN PO DYSPEPSIA 04/08/21 17:45 Magnesium Hydroxide (Milk Of Magnesia) 2,400 mg PRN QHS PRN PO CONSTIPATION 04/08/21 17:45 Acetaminophen (Tylenol) 1,000 mg BID PO 04/08/21 21:00 04/20/21 17:32 DC 04/20/21 08:05 Influenza Virus Vaccine Quadrival (Flulaval Quad [id number] Syringe) 0.5 ml ONCE ONCE VAX IM 04/09/21 09:00 04/09/21 09:01 DC 04/09/21 09:43 Citalopram Hydrobromide (CeleXA) 40 mg DAILY PO 04/10/21 09:00 04/09/21 18:40 DC Acetaminophen/ Hydrocodone Bitart (Lortab 5/325) 1 tab Q8HRS PO 04/09/21 15:45 04/21/21 19:56 Nicotine (Nicoderm Cq 14mg Patch) 1 patch PRN DAILY PRN TD SMOKING CESSATION 04/09/21 17:30 Bupropion HCl (Wellbutrin) 150 mg DAILY PO 04/10/21 09:00 04/21/21 08:26 Bupropion HCl (Wellbutrin) 75 mg 1200 PO 04/10/21 12:00 04/13/21 03:24 DC 04/12/21 12:25 Riluzole (Riluzole) 50 mg BID@1000,2200 PO 04/11/21 22:00 04/21/21 19:55 Riluzole (Riluzole) 50 mg STK-MED ONCE .ROUTE 04/09/21 21:00 04/11/21 10:42 DC Riluzole (Riluzole) 50 mg STK-MED ONCE .ROUTE 04/10/21 09:00 04/11/21 10:42 DC Riluzole (Riluzole) 50 mg STK-MED ONCE .ROUTE 04/11/21 09:00 04/11/21 10:42 DC Bupropion HCl (Wellbutrin) 150 mg 1200 PO 04/13/21 12:00 04/21/21 12:23 Quetiapine Fumarate (SEROquel) 250 mg QHS PO 04/13/21 21:00 04/21/21 19:55 Quetiapine Fumarate (SEROquel) 50 mg BID@0900,1500 PO 04/13/21 09:00 04/21/21 14:56 Ascorbic Acid (Vitamin C) 500 mg BID PO 04/20/21 21:00 04/21/21 19:54 Current Medications Medications (Trade) Dose Ordered Sig/Yakelin Route PRN Reason Start Time Stop Time Status Last Admin Dose Admin Ascorbic Acid (Vitamin C) 500 mg BID PO 04/20/21 21:00 04/21/21 19:54 I have reviewed the current psychotropics carefully including drug interactions. Risk benefit ratio favors no change other than as noted in my dictated progress note. Diagnosis: Problems: (1) Amyotrophic lateral sclerosis (2) Anxiety disorder, unspecified (3) Bipolar 1 disorder, depressed (4) Major depressive disorder, recurrent episode, severe DIMITRI GODINEZ MD Apr 21, 2021 20:31
--- NOTE | 2021-04-21 23:00 | NUR ---
Patient is in the hallway on assumption of care, sitting in his broda chair. Alert and oriented x 4. He is somewhat irritable, wanting to be assisted into bed immediately. He was understanding when staff explained that we would get to that as soon as we were able. Cooperative with HS cares. He is looking forward to discharging tomorrow. Denies any SI thoughts at present time. No agitation. Patient appears to be sleeping comfortably at present time. Will continue to monitor.
[2021-04-22] MEDS ORDERED: CHOL500021 PO ×2 (02:10→02:12)
[2021-04-22] MEDS ORDERED: NICO1PAT25 TD (02:14)
[2021-04-22] MEDS ORDERED: QUET100T4 PO (02:16)
[2021-04-22] MEDS ORDERED: QUET50TA5 PO (02:16)
[2021-04-22] MEDS ORDERED: BUPR150T8 PO (02:18)
[2021-04-22] MEDS: HYDROcodone/APAP 5/325MG 1 TAB TABLET PO SCH (05:12)
[2021-04-22 06:13] VITALS: BP 118/71
[2021-04-22] MEDS: buPROPion 75 MG TABLET PO SCH (09:04)
[2021-04-22] MEDS: GABAPENTIN 300 MG CAPSULE. PO SCH (09:05)
[2021-04-22] MEDS: metFORMIN 500 MG TABLET PO SCH (09:05)
[2021-04-22] MEDS: POLYETHYLENE GLYCOL 3350 17 GM PACKET. PO SCH (09:05)
[2021-04-22] MEDS: DOCUSATE SODIUM 100 MG CAPSULE PO SCH (09:05)
[2021-04-22] MEDS: BACLOFEN 20 MG TABLET PO SCH (09:05)
[2021-04-22] MEDS: ASCORBIC ACID 500 MG TABLET PO SCH (09:05)
[2021-04-22] MEDS: QUEtiapine 50 MG TABLET. PO SCH (09:05)
--- NOTE | 2021-04-22 09:46 | PDOC ---
Exam Note: Bran Note: PThis note is a late entry for 04/20/2021 covers elements not covered in my initial note. Subjective: The patient was seen individually in the evening of 04/20/2021 with Roxanna MERCADO, discussed and reviewed the chart. The patient slept 7-3/4 hours previous night. I met with the patient in his room. He had been just put to bed and is always trying to gravitate towards his bed. I addressed this with him. Review of Systems: Ambulation impaired due to his ALS. He does complain of pain. No CV, , pulmonary, eye, ENT system symptoms on review. Mental Status Exam: The patient is reasonably oriented. Speech is coherent. Abstraction fair. Computation impaired. Mood and affect somewhat depressed and anxious. No suicidal or homicidal ideation. Laboratory Data: Reviewed. Impression: Major depressive disorder, recurrent, severe. Anxiety disorder unspecified. ALS. Plan: Continue rest of the psychotropics unchanged. Assessment: Vital Signs/I&O: Vital Signs Date Time Temp Pulse Resp B/P (MAP) Pulse Ox O2 Delivery O2 Flow Rate FiO2 04/22/21 06:13 97.9 96 18 118/71 (87) 95 Room Air 04/20/21 05:55 2.0 I & O 04/21/21 04/21/21 04/22/21 15:00 23:00 07:00 Intake Total 440 ml 720 ml Balance 440 ml 720 ml Labs: Laboratory Tests Test 04/21/21 14:15 04/21/21 14:51 Glucose (Fingerstick) 67 mg/dL (70-99) L 180 mg/dL (70-99) H Current Medications: Meds: Laboratory Tests Test 04/21/21 14:15 04/21/21 14:51 Glucose (Fingerstick) 67 mg/dL 180 mg/dL Current Medications Medications (Trade) Dose Ordered Sig/Yakelin Route PRN Reason Start Time Stop Time Status Last Admin Dose Admin Atorvastatin Calcium (Lipitor) 10 mg QHS PO 04/08/21 21:00 04/21/21 19:54 Baclofen (Lioresal) 20 mg TID PO 04/08/21 21:00 04/22/21 09:05 Bupropion HCl (Wellbutrin) 75 mg BID PO 04/08/21 21:00 04/09/21 18:10 DC 04/09/21 09:39 Docusate Sodium (Colace) 100 mg DAILY PO 04/09/21 09:00 04/22/21 09:05 Gabapentin (Neurontin) 300 mg TID PO 04/08/21 21:00 04/22/21 09:05 Acetaminophen/ Hydrocodone Bitart (Lortab 5/325) 1 tab PRN Q6HRS PRN PO PAIN 04/08/21 17:45 04/09/21 15:40 DC 04/09/21 13:18 Metformin HCl (Glucophage) 500 mg BIDWMEALS PO 04/09/21 08:00 04/22/21 09:05 Mirtazapine (Remeron) 30 mg QHS PO 04/08/21 21:00 04/21/21 19:54 Tramadol HCl (Ultram) 50 mg Q8HRS PO 04/08/21 22:00 04/09/21 15:40 DC 04/09/21 13:01 Trazodone HCl (Desyrel) 100 mg QHS PO 04/08/21 21:00 04/21/21 19:53 Ascorbic Acid (Vitamin C) 1,000 mg TID PO 04/08/21 21:00 04/20/21 17:32 DC 04/20/21 14:15 Non-Formulary Medication (Beta-Carotene (Beta Carotene)) 25,000 unit DAILY PO 04/09/21 09:00 UNV Vitamin D (Vitamin D3) 50,000 unit QM@0900 PO 04/18/21 09:00 04/18/21 08:35 Citalopram Hydrobromide (CeleXA) 40 mg DAILY PO 04/09/21 09:00 04/09/21 18:40 DC 04/09/21 09:40 Polyethylene Glycol (miraLAX) 17 gm DAILY PO 04/09/21 09:00 04/22/21 09:05 Quetiapine Fumarate (SEROquel) 300 mg QHS PO 04/08/21 21:00 04/13/21 03:24 DC 04/12/21 20:55 Non-Formulary Medication (Riluzole ) 50 mg BID PO 04/08/21 21:00 04/11/21 10:42 DC 04/11/21 09:15 Multi-Ingredient Ointment (Analgesic [place]) 1 komal PRN QID PRN TP MUSCLE PAIN 04/08/21 17:45 Al Hydroxide/Mg Hydroxide (Mylanta Plus Xs) 15 ml PRN AFTMEALHC PRN PO DYSPEPSIA 04/08/21 17:45 Magnesium Hydroxide (Milk Of Magnesia) 2,400 mg PRN QHS PRN PO CONSTIPATION 04/08/21 17:45 Acetaminophen (Tylenol) 1,000 mg BID PO 04/08/21 21:00 04/20/21 17:32 DC 04/20/21 08:05 Influenza Virus Vaccine Quadrival (Flulaval Quad [id number] Syringe) 0.5 ml ONCE ONCE VAX IM 04/09/21 09:00 04/09/21 09:01 DC 04/09/21 09:43 Citalopram Hydrobromide (CeleXA) 40 mg DAILY PO 04/10/21 09:00 04/09/21 18:40 DC Acetaminophen/ Hydrocodone Bitart (Lortab 5/325) 1 tab Q8HRS PO 04/09/21 15:45 04/22/21 05:12 Nicotine (Nicoderm Cq 14mg Patch) 1 patch PRN DAILY PRN TD SMOKING CESSATION 04/09/21 17:30 Bupropion HCl (Wellbutrin) 150 mg DAILY PO 04/10/21 09:00 04/22/21 09:04 Bupropion HCl (Wellbutrin) 75 mg 1200 PO 04/10/21 12:00 04/13/21 03:24 DC 04/12/21 12:25 Riluzole (Riluzole) 50 mg BID@1000,2200 PO 04/11/21 22:00 04/21/21 19:55 Riluzole (Riluzole) 50 mg STK-MED ONCE .ROUTE 04/09/21 21:00 04/11/21 10:42 DC Riluzole (Riluzole) 50 mg STK-MED ONCE .ROUTE 04/10/21 09:00 04/11/21 10:42 DC Riluzole (Riluzole) 50 mg STK-MED ONCE .ROUTE 04/11/21 09:00 04/11/21 10:42 DC Bupropion HCl (Wellbutrin) 150 mg 1200 PO 04/13/21 12:00 04/21/21 12:23 Quetiapine Fumarate (SEROquel) 250 mg QHS PO 04/13/21 21:00 04/21/21 19:55 Quetiapine Fumarate (SEROquel) 50 mg BID@0900,1500 PO 04/13/21 09:00 04/22/21 09:05 Ascorbic Acid (Vitamin C) 500 mg BID PO 04/20/21 21:00 04/22/21 09:05 I have reviewed the current psychotropics carefully including drug interactions. Risk benefit ratio favors no change other than as noted in my dictated progress note. Diagnosis: Problems: (1) Amyotrophic lateral sclerosis (2) Anxiety disorder, unspecified (3) Bipolar 1 disorder, depressed (4) Major depressive disorder, recurrent episode, severe DIMITRI GODINEZ MD Apr 22, 2021 09:46
--- NOTE | 2021-04-22 10:02 | PDOC ---
Exam Note: Bran Note: This note is a late entry for 04/21/2021 covers elements not covered in my initial note. Subjective: The patient was seen individually in the evening of 04/21/2021 with Nga MERCADO, discussed and reviewed the chart. The patient slept 7-1/2 hours previous night. Patient wants to get back to his bed, has difficulty staying out in group activities but he attributes this to his pain. Review of Systems: Ambulation impaired. He does complain of significant pain and discomfort consequent to his ALS. No CV, , pulmonary, eye, ENT system symptoms on review. Mental Status Exam: The patient is reasonably oriented. Speech is coherent has some latency. Abstraction fair. Computation impaired. Attention span fair. Mood and affect dysphoric, anxious. No suicidal ideation. Laboratory Data: Reviewed. Impression: Major depressive disorder, with suicidal ideation n partial remission. Anxiety disorder unspecified. Impulse control disorder unspecified. ALS. Plan: Continue rest of the psychotropics unchanged. Possible transition to the longterm on 04/22. Assessment: Vital Signs/I&O: Vital Signs Date Time Temp Pulse Resp B/P (MAP) Pulse Ox O2 Delivery O2 Flow Rate FiO2 04/22/21 06:13 97.9 96 18 118/71 (87) 95 Room Air 04/20/21 05:55 2.0 I & O 04/21/21 04/21/21 04/22/21 15:00 23:00 07:00 Intake Total 440 ml 720 ml Balance 440 ml 720 ml Labs: Laboratory Tests Test 04/21/21 14:15 04/21/21 14:51 Glucose (Fingerstick) 67 mg/dL (70-99) L 180 mg/dL (70-99) H Current Medications: Meds: Laboratory Tests Test 04/21/21 14:15 04/21/21 14:51 Glucose (Fingerstick) 67 mg/dL 180 mg/dL Current Medications Medications (Trade) Dose Ordered Sig/Yakelin Route PRN Reason Start Time Stop Time Status Last Admin Dose Admin Atorvastatin Calcium (Lipitor) 10 mg QHS PO 04/08/21 21:00 04/21/21 19:54 Baclofen (Lioresal) 20 mg TID PO 04/08/21 21:00 04/22/21 09:05 Bupropion HCl (Wellbutrin) 75 mg BID PO 04/08/21 21:00 04/09/21 18:10 DC 04/09/21 09:39 Docusate Sodium (Colace) 100 mg DAILY PO 04/09/21 09:00 04/22/21 09:05 Gabapentin (Neurontin) 300 mg TID PO 04/08/21 21:00 04/22/21 09:05 Acetaminophen/ Hydrocodone Bitart (Lortab 5/325) 1 tab PRN Q6HRS PRN PO PAIN 04/08/21 17:45 04/09/21 15:40 DC 04/09/21 13:18 Metformin HCl (Glucophage) 500 mg BIDWMEALS PO 04/09/21 08:00 04/22/21 09:05 Mirtazapine (Remeron) 30 mg QHS PO 04/08/21 21:00 04/21/21 19:54 Tramadol HCl (Ultram) 50 mg Q8HRS PO 04/08/21 22:00 04/09/21 15:40 DC 04/09/21 13:01 Trazodone HCl (Desyrel) 100 mg QHS PO 04/08/21 21:00 04/21/21 19:53 Ascorbic Acid (Vitamin C) 1,000 mg TID PO 04/08/21 21:00 04/20/21 17:32 DC 04/20/21 14:15 Non-Formulary Medication (Beta-Carotene (Beta Carotene)) 25,000 unit DAILY PO 04/09/21 09:00 UNV Vitamin D (Vitamin D3) 50,000 unit QM@0900 PO 04/18/21 09:00 04/18/21 08:35 Citalopram Hydrobromide (CeleXA) 40 mg DAILY PO 04/09/21 09:00 04/09/21 18:40 DC 04/09/21 09:40 Polyethylene Glycol (miraLAX) 17 gm DAILY PO 04/09/21 09:00 04/22/21 09:05 Quetiapine Fumarate (SEROquel) 300 mg QHS PO 04/08/21 21:00 04/13/21 03:24 DC 04/12/21 20:55 Non-Formulary Medication (Riluzole ) 50 mg BID PO 04/08/21 21:00 04/11/21 10:42 DC 04/11/21 09:15 Multi-Ingredient Ointment (Analgesic [place]) 1 komal PRN QID PRN TP MUSCLE PAIN 04/08/21 17:45 Al Hydroxide/Mg Hydroxide (Mylanta Plus Xs) 15 ml PRN AFTMEALHC PRN PO DYSPEPSIA 04/08/21 17:45 Magnesium Hydroxide (Milk Of Magnesia) 2,400 mg PRN QHS PRN PO CONSTIPATION 04/08/21 17:45 Acetaminophen (Tylenol) 1,000 mg BID PO 04/08/21 21:00 04/20/21 17:32 DC 04/20/21 08:05 Influenza Virus Vaccine Quadrival (Flulaval Quad [id number] Syringe) 0.5 ml ONCE ONCE VAX IM 04/09/21 09:00 04/09/21 09:01 DC 04/09/21 09:43 Citalopram Hydrobromide (CeleXA) 40 mg DAILY PO 04/10/21 09:00 04/09/21 18:40 DC Acetaminophen/ Hydrocodone Bitart (Lortab 5/325) 1 tab Q8HRS PO 04/09/21 15:45 04/22/21 05:12 Nicotine (Nicoderm Cq 14mg Patch) 1 patch PRN DAILY PRN TD SMOKING CESSATION 04/09/21 17:30 Bupropion HCl (Wellbutrin) 150 mg DAILY PO 04/10/21 09:00 04/22/21 09:04 Bupropion HCl (Wellbutrin) 75 mg 1200 PO 04/10/21 12:00 04/13/21 03:24 DC 04/12/21 12:25 Riluzole (Riluzole) 50 mg BID@1000,2200 PO 04/11/21 22:00 04/21/21 19:55 Riluzole (Riluzole) 50 mg STK-MED ONCE .ROUTE 04/09/21 21:00 04/11/21 10:42 DC Riluzole (Riluzole) 50 mg STK-MED ONCE .ROUTE 04/10/21 09:00 04/11/21 10:42 DC Riluzole (Riluzole) 50 mg STK-MED ONCE .ROUTE 04/11/21 09:00 04/11/21 10:42 DC Bupropion HCl (Wellbutrin) 150 mg 1200 PO 04/13/21 12:00 04/21/21 12:23 Quetiapine Fumarate (SEROquel) 250 mg QHS PO 04/13/21 21:00 04/21/21 19:55 Quetiapine Fumarate (SEROquel) 50 mg BID@0900,1500 PO 04/13/21 09:00 04/22/21 09:05 Ascorbic Acid (Vitamin C) 500 mg BID PO 04/20/21 21:00 04/22/21 09:05 I have reviewed the current psychotropics carefully including drug interactions. Risk benefit ratio favors no change other than as noted in my dictated progress note. Diagnosis: Problems: (1) Amyotrophic lateral sclerosis (2) Anxiety disorder, unspecified (3) Bipolar 1 disorder, depressed (4) Major depressive disorder, recurrent episode, severe (5) Motor neuron disease DIMITRI GODINEZ MD Apr 22, 2021 10:02
[2021-04-22] MEDS: RILUZOLE 50 MG PO SCH (10:20)
--- NOTE | 2021-04-22 11:02 | NUR ---
Transition Record was faxed to follow-up provider with the following elements: Reason for admission, procedures, tests, principal diagnosis, pending studies, patient instructions, 25/12 contact information for unit, phone number to obtain pending test results, plan for follow-up care, physician follow-up, advanced directive information, and medication list with dose, duration and instructions. This information was included in the following documents: History and physical, lab results, study results, progress notes, social work planning form, DC instruction form, patient visit summary, and medication reconciliation form. Date & time record faxed: 22 April 2021 Record faxed to: Marco Antonio on Record discussed with/ report given to: mamisa left at [phone] Addendum: 04/27/21 at 1112 by COMPA PALUMBO II, RN Patient did not call Tobacco cessation line; patient was sent home with tobacco cessation products prescribed
--- NOTE | 2021-04-22 20:24 | PDOC ---
Exam Note: Bran Note: Please also refer to the separate dictated note~for this date of service dictated separately.~Patient seen individually. Discussed the patient with Nursing staff reviewed the chart.~Reviewed interim history and current functioning. Reviewed vital signs,~Labs/ Radiology~and current medications noted below. Continue current treatment with the changes noted in the dictated addendum note Assessment: Vital Signs/I&O: Vital Signs Date Time Temp Pulse Resp B/P (MAP) Pulse Ox O2 Delivery O2 Flow Rate FiO2 04/22/21 06:13 97.9 96 18 118/71 (87) 95 Room Air 04/20/21 05:55 2.0 I & O 04/21/21 04/21/21 04/22/21 15:00 23:00 07:00 Intake Total 440 ml 720 ml Balance 440 ml 720 ml Current Medications: Meds: Current Medications Medications (Trade) Dose Ordered Sig/Yakelin Route PRN Reason Start Time Stop Time Status Last Admin Dose Admin Atorvastatin Calcium (Lipitor) 10 mg QHS PO 04/08/21 21:00 04/22/21 11:08 DC 04/21/21 19:54 Baclofen (Lioresal) 20 mg TID PO 04/08/21 21:00 04/22/21 11:08 DC 04/22/21 09:05 Bupropion HCl (Wellbutrin) 75 mg BID PO 04/08/21 21:00 04/09/21 18:10 DC 04/09/21 09:39 Docusate Sodium (Colace) 100 mg DAILY PO 04/09/21 09:00 04/22/21 11:08 DC 04/22/21 09:05 Gabapentin (Neurontin) 300 mg TID PO 04/08/21 21:00 04/22/21 11:08 DC 04/22/21 09:05 Acetaminophen/ Hydrocodone Bitart (Lortab 5/325) 1 tab PRN Q6HRS PRN PO PAIN 04/08/21 17:45 04/09/21 15:40 DC 04/09/21 13:18 Metformin HCl (Glucophage) 500 mg BIDWMEALS PO 04/09/21 08:00 04/22/21 11:08 DC 04/22/21 09:05 Mirtazapine (Remeron) 30 mg QHS PO 04/08/21 21:00 04/22/21 11:08 DC 04/21/21 19:54 Tramadol HCl (Ultram) 50 mg Q8HRS PO 04/08/21 22:00 04/09/21 15:40 DC 04/09/21 13:01 Trazodone HCl (Desyrel) 100 mg QHS PO 04/08/21 21:00 04/22/21 11:08 DC 04/21/21 19:53 Ascorbic Acid (Vitamin C) 1,000 mg TID PO 04/08/21 21:00 04/20/21 17:32 DC 04/20/21 14:15 Non-Formulary Medication (Beta-Carotene (Beta Carotene)) 25,000 unit DAILY PO 04/09/21 09:00 UNV Vitamin D (Vitamin D3) 50,000 unit QM@0900 PO 04/18/21 09:00 04/22/21 11:08 DC 04/18/21 08:35 Citalopram Hydrobromide (CeleXA) 40 mg DAILY PO 04/09/21 09:00 04/09/21 18:40 DC 04/09/21 09:40 Polyethylene Glycol (miraLAX) 17 gm DAILY PO 04/09/21 09:00 04/22/21 11:08 DC 04/22/21 09:05 Quetiapine Fumarate (SEROquel) 300 mg QHS PO 04/08/21 21:00 04/13/21 03:24 DC 04/12/21 20:55 Non-Formulary Medication (Riluzole ) 50 mg BID PO 04/08/21 21:00 04/11/21 10:42 DC 04/11/21 09:15 Multi-Ingredient Ointment (Analgesic [place]) 1 komal PRN QID PRN TP MUSCLE PAIN 04/08/21 17:45 04/22/21 11:08 DC Al Hydroxide/Mg Hydroxide (Mylanta Plus Xs) 15 ml PRN AFTMEALHC PRN PO DYSPEPSIA 04/08/21 17:45 04/22/21 11:08 DC Magnesium Hydroxide (Milk Of Magnesia) 2,400 mg PRN QHS PRN PO CONSTIPATION 04/08/21 17:45 04/22/21 11:08 DC Acetaminophen (Tylenol) 1,000 mg BID PO 04/08/21 21:00 04/20/21 17:32 DC 04/20/21 08:05 Influenza Virus Vaccine Quadrival (Flulaval Quad [id number] Syringe) 0.5 ml ONCE ONCE VAX IM 04/09/21 09:00 04/09/21 09:01 DC 04/09/21 09:43 Citalopram Hydrobromide (CeleXA) 40 mg DAILY PO 04/10/21 09:00 04/09/21 18:40 DC Acetaminophen/ Hydrocodone Bitart (Lortab 5/325) 1 tab Q8HRS PO 04/09/21 15:45 04/22/21 11:08 DC 04/22/21 05:12 Nicotine (Nicoderm Cq 14mg Patch) 1 patch PRN DAILY PRN TD SMOKING CESSATION 04/09/21 17:30 04/22/21 11:08 DC Bupropion HCl (Wellbutrin) 150 mg DAILY PO 04/10/21 09:00 04/22/21 11:08 DC 04/22/21 09:04 Bupropion HCl (Wellbutrin) 75 mg 1200 PO 04/10/21 12:00 04/13/21 03:24 DC 04/12/21 12:25 Riluzole (Riluzole) 50 mg BID@1000,2200 PO 04/11/21 22:00 04/22/21 11:08 DC 04/22/21 10:20 Riluzole (Riluzole) 50 mg STK-MED ONCE .ROUTE 04/09/21 21:00 04/11/21 10:42 DC Riluzole (Riluzole) 50 mg STK-MED ONCE .ROUTE 04/10/21 09:00 04/11/21 10:42 DC Riluzole (Riluzole) 50 mg STK-MED ONCE .ROUTE 04/11/21 09:00 04/11/21 10:42 DC Bupropion HCl (Wellbutrin) 150 mg 1200 PO 04/13/21 12:00 04/22/21 11:08 DC 04/21/21 12:23 Quetiapine Fumarate (SEROquel) 250 mg QHS PO 04/13/21 21:00 04/22/21 11:08 DC 04/21/21 19:55 Quetiapine Fumarate (SEROquel) 50 mg BID@0900,1500 PO 04/13/21 09:00 04/22/21 11:08 DC 04/22/21 09:05 Ascorbic Acid (Vitamin C) 500 mg BID PO 04/20/21 21:00 04/22/21 11:08 DC 04/22/21 09:05 I have reviewed the current psychotropics carefully including drug interactions. Risk benefit ratio favors no change other than as noted in my dictated progress note. Diagnosis: Problems: (1) Amyotrophic lateral sclerosis (2) Anxiety disorder, unspecified (3) Bipolar 1 disorder, depressed (4) Major depressive disorder, recurrent episode, severe DIMITRI GODINEZ MD Apr 22, 2021 20:24
--- NOTE | 2021-04-23 22:11 | DS ---
DATE OF DISCHARGE: 04/22/2021 DISCHARGE SUMMARY/PSYCHIATRIC PROGRESS NOTE This is a late entry, date of service 04/22/2021, covers the elements not covered in my initial note. REASON FOR ADMISSION:. Please refer to the admission history for details. Briefly, the patient is a 70-year-old male, referred to us from [facility] on [address] by his primary care physician, psychiatrist, on account of worsening symptoms of depression after the patient expressed suicidal ideation consequent to his frustration with his amyotrophic lateral sclerosis and worsening neurological deficits consequent to this. The patient was deemed dangerous, has failed outpatient psychiatric interventions at the facility, and referred for inpatient psychiatric stabilization. CHIEF COMPLAINT: "Yes, I am depressed. I have ALS. No, I would not try to kill myself." HISTORY OF PRESENT ILLNESS: The patient reportedly has been residing at the above facility for some time, but recently getting more depressed, hopeless, helpless, worthless with sleep and appetite changes, consequent to the above ALS with worsening symptoms. No active current suicidal or homicidal ideation, but he had expressed significant desire to end his life prior to admission. No history of bipolar disorder. PAST PSYCHIATRIC HISTORY: As above. MEDICAL HISTORY: Diagnosed with ALS with declining ability. History of spinal stenosis, chronic low back pain, type 2 diabetes mellitus, hyperlipidemia, hypertension, ALS was diagnosed 2 months previously. Accu-Cheks daily. CODE STATUS: FULL CODE. ALLERGIES: HALDOL. DIET: Regular, needs to be fed due to impaired mobility. Takes medications whole. Ambulates wheelchair, Broda chair. UA, 04/08/2021 was negative. CURRENT PSYCHOTROPICS: Wellbutrin 150 mg b.i.d., Neurontin 300 mg t.i.d., Remeron 30 mg at bedtime, Seroquel 50 mg b.i.d., 250 mg at bedtime, trazodone 100 mg at bedtime. FAMILY HISTORY: Noncontributory. CLINICAL COURSE: Following admission, the patient was seen daily individually by myself from a psychiatric standpoint, medical followup, Dr. Sy/Dr. Rivera. The patient was depressed, feeling hopeless, helpless, worthless at admission, but denied suicidal ideation. Adjustments were made in his psychotropics and he seemed to finally respond to a combination of Wellbutrin 150 mg b.i.d., Neurontin 300 mg t.i.d., Remeron 30 mg at bedtime, Seroquel 50 mg 0900 and 1500, 250 mg at bedtime, trazodone 100 mg at bedtime. REVIEW OF SYSTEMS: Prior to discharge, ambulation impaired, in Broda chair. No complaints of back pain. No CV, , pulmonary, eye system symptoms on review. MENTAL STATUS EXAMINATION: The patient is reasonably oriented. Speech is coherent. Abstraction fair. Computation impaired. Language function intact. Attention span short. Mood and affect, less depressed. No suicidal ideation. LABORATORY DATA: Reviewed. FINAL DIAGNOSES: Major depressive disorder, recurrent with history of suicidal ideation, anxiety disorder, unspecified. Rest diagnoses as above. DISCHARGE MEDICATIONS: Please refer to the MRAD. DISCHARGE INSTRUCTIONS: Outpatient psychiatric and medical followup at the senior care. GIULIANA DR: Da TID: [id number]
== END 2021-04-22 11:08 | disposition home or self-care (01) | DRG 885 ==
LOC: GEROPSY 17:15
PROVIDERS: ADMIT Psychiatry & Neurology Psychiatry; ATTEND Psychiatry & Neurology Psychiatry
DX: F31.30 Bipolar disorder, current episode depressed, mild or moderate severity, unspecified (principal); G12.21 Amyotrophic lateral sclerosis; R45.851 Suicidal ideations; F41.9 Anxiety disorder, unspecified; E78.5 Hyperlipidemia, unspecified; E11.9 Type 2 diabetes mellitus without complications; F17.210 Nicotine dependence, cigarettes, uncomplicated; G89.29 Other chronic pain; I10 Essential (primary) hypertension; F63.9 Impulse disorder, unspecified; D64.9 Anemia, unspecified; Z20.822 Contact with and (suspected) exposure to COVID-19
CPT/HCPCS: 36415; 80053; 80061; 81001; 82306; 82607; 82947; 83036; 83540; 83550; 83735; 84436; 84443; 84480; 85025; 85379; 86592; 90471; 90686; 93005; 99406; U0003